=== PATIENT | female | born 1950 | race Caucasian/White ===

== ENCOUNTER → 2022-08-09 09:17 | Outpatient (BNVA) | payer MEDICARE, MEDICAID, SELFPAY | PROVIDERS: PCP Family Medicine; Visit Provider Student in an Organized Health Care Education/Training Program | DX: M17.0 Bilateral primary osteoarthritis of knee (principal); M34.9 Systemic sclerosis, unspecified; Z11.59 Encounter for screening for other viral diseases; Z79.899 Other long term (current) drug therapy; Z72.89 Other problems related to lifestyle | CPT/HCPCS: 36415; 80053; 82784; 84165; 84182; 85025; 85652; 86140; 86235; 86334; 86704; 86706; 86709; 86803; 87340; 99202 ==

== ENCOUNTER 2022-08-09 11:11 | Outpatient (REF) | payer MEDICARE, MEDICAID, SELFPAY ==
[2022-08-09 13:42] LABS: MANUAL DIFF FLAG NO
[2022-08-09 13:56] LABS: Basophils Absolute Auto 0.1 X10*3/uL (0.0-0.2); Basophils Percent Auto 1.3 % (0-2); Eosinophils Absolute Auto 0.1 X10*3/uL (0.0-0.4); Hematocrit 33.4 % (37.0-47.0); Hemoglobin 10.9 g/dl (12.0-16.0); Imm Gran Abs Auto 0.01 X10*3/uL (0.00-0.03); Imm Gran Pct Auto 0.2 % (0.0-0.4); Lymphocytes Absolute Auto 1.5 X10*3/uL (1.2-4.9); Lymphocytes Percent Auto 27.4 % (20-40); Mean Corpuscular HGB Conc 32.6 g/dl (31.0-35.0); Mean Corpuscular Hemoglobin 29.5 pg (27.0-33.0); Mean Corpuscular Volume 90.5 fL (80.0-98.0); Mean Platelet Volume 9.7 fL (9.4-12.3); Monocytes Absolute Auto 0.3 X10*3/uL (0.1-1.2); Monocytes Percent Auto 5.9 % (2-11); Neutrophils Absolute Auto 3.4 x10*3/uL (2.0-8.3); Neutrophils Percent Auto 63.2 % (45-73); Platelet Count 251 X10*3/uL (160-400); Red Blood Count 3.69 X10*6/uL (4.20-5.50); Red Cell Distribution Width 13.3 % (11.0-16.0); White Blood Count 5.4 X10*3/uL (4.8-10.8)
[2022-08-09 14:30] LABS: Alanine Aminotransferase 14 U/L (0-31); Alkaline Phosphatase 42 U/L (39-117); Anion Gap 13 (12-20); Aspartate Amino Transferase 25 U/L (5-31); Bilirubin Total 0.7 mg/dL (0.0-1.0); Blood Urea Nitrogen 22 mg/dL (9-16); C Reactive Protein < 0.10 mg/dL (< or = 0.50); Calcium 9.1 mg/dL (8.4-10.2); Carbon Dioxide 23 mmol/L (22-29); Chloride 106 mmol/L (96-108); Estimated Glomerular Filt Rate 57; Glucose Random 80 mg/dL (60-115); Potassium 4.5 mmol/L (3.3-5.1); Sodium 137 mmol/L (135-145)
[2022-08-09 14:49] LABS: Erythrocyte Sedimentation Rate 16 MM/HR (0-20)
[2022-08-10 08:23] LABS: HBS Num1 0.25 mIU/mL (0-7.99); HBc Num1 0.11 S/CO (0.00-0.79); HBsAGNum1 0.36 S/CO (0.00-0.99); Hepatitis A Antibody IgM 0.16 Index (0-0.79); Hepatitis B Core Antibody Nonreactive (Nonreactive); Hepatitis B Surface Antigen Negative (Negative); ~HepC Num1 0.12 S/CO (0.00-0.79); ~Hepatitis A Antibody IgM Nonreactive (Nonreactive); ~Hepatitis B Surface Antibody NONREACTIVE (Nonreactive); ~Hepatitis C Antibody Nonreactive (Nonreactive)
[2022-08-14 14:17] LABS: IgA 165 mg/dL (70-320); IgG 1473 mg/dL (600-1540); IgM 77 mg/dL (50-300)
[2022-08-15 00:24] LABS: PES - Abn Protein Band 1 0.9 g/dL (NONE DETECTED); Prot Elec - Albumin 4.1 g/dL (3.8-4.8); Prot Elec - Alpha1 0.3 g/dL (0.2-0.3); Prot Elec - Alpha2 0.6 g/dL (0.5-0.9); Prot Elec - Beta 1 0.5 g/dL (0.4-0.6); Prot Elec - Beta 2 0.2 g/dL (0.2-0.5); Prot Elec - Gamma 1.4 g/dL (0.8-1.7)
[2022-08-21 23:18] LABS: Centromere Protein A Ab 142 SI (<11); Centromere Protein B Ab 125 SI (<11); Fibrillarin Ab <11 SI (<11); PM SCL 100 Ab <11 SI (<11); PM SCL 75 Ab <11 SI (<11); RNA Polymerase III RP11 Ab <11 SI (<11); RNA Polymerase III RP155 Ab <11 SI (<11); SCL-70 Extractable Nuclear Ab <11 SI (<11); Th-To Ab <11 SI (<11); U1 SNRNP RNP 70KD <11 SI (<11); U1 SNRNP RNP A <11 SI (<11); U1 SNRNP RNP C <11 SI (<11)
== END 2022-08-09 11:12 | disposition home or self-care (01) ==
LOC: HO.10HDL 11:11
PROVIDERS: Visit Provider Student in an Organized Health Care Education/Training Program
DX: Z13.89 Encounter for screening for other disorder (principal)
CPT/HCPCS: 36415; 80053; 82784; 84165; 84182; 85025; 85652; 86140; 86235; 86334; 86704; 86706; 86709; 86803; 87340

== ENCOUNTER → 2022-09-18 14:59 | Outpatient (BNV) | payer MEDICARE, MEDICAID, SELFPAY | PROVIDERS: PCP Family Medicine; Visit Provider Internal Medicine Medical Oncology | DX: D47.2 Monoclonal gammopathy (principal) | CPT/HCPCS: 99204; 99213 ==

== ENCOUNTER 2023-02-07 07:48 | Outpatient (AMB) | payer MEDICARE, MEDICAID, SELFPAY ==
[2023-02-07 07:53] VITALS: BP 122/68; TEMP 36.6; BMI 26.3
--- NOTE | 2023-02-07 07:53 | A.OFFVIS_ITS ---
Intake Vital Signs 02/07/23 07:53 Height 5 ft 2 in Weight 143 lb 15.39 oz BMI 26.3 BP 122/68 Blood Pressure Location Rt brachial Position Sitting Temp 97.9 F Temp Source Skin Intake Visit Reasons: Scleroderma Intake Note: Pt seen today for scleroderma follow up. 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 Required: No Accompanied by: Self / Same As Patient Allergies cephalexin Adverse Reaction (Unknown, Verified 02/07/23 07:55) Nausea codeine Adverse Reaction (Unknown, Verified 02/07/23 07:55) Nausea cyclobenzaprine [From Flexeril] Adverse Reaction (Unknown, Verified 02/07/23 07:55) Nausea metaxalone Adverse Reaction (Unknown, Verified 02/07/23 07:55) Nausea tramadol Adverse Reaction (Unknown, Verified 02/07/23 07:55) Nausea Medication List - Last Reconciled 02/07/23 by Jacinto Crowe MD atorvastatin 10 mg PO DAILY cholecalciferol (vitamin D3) 25 mcg PO DAILY citalopram 20 mg PO DAILY diclofenac sodium 1% 4 grams topical QID fluorouracil 5% 2 appl topical BID gabapentin 200 mg (2 x 100 mg) PO BEDTIME hydroxychloroquine 200 mg PO DAILY omeprazole 20 mg PO DAILY HPI HPI Comments History of Present Illness Details This is a 72 year old female with limited scleroderma who presents for follow-up. Doing well overall. Staying active. Goes to the gym 3-4 days a week and does light weights and treadmill. Gets some knee pain with going up and down the stairs. Gets some shortness of breath. She follows up with a lingo cleaner once a year and she had PFTs and echo and was told they were unremarkable. She is on hydroxychloroquine 200 mg daily. Initial history: This is a 72-year-old female with a past medical history scleroderma presents as a new patient. Her previous metal products fabricator assembler left the practice. Patient stated that she was diagnosed with scleroderma around 15-20 years ago. When she had Raynaud's, and some skin changes. She has been on hydroxychloroquine 1 tab daily since her diagnosis. She states she has history of GERD, on omeprazole daily and she had sphincter dilation procedure a few times by GI. She also states that her previous metal products fabricator assembler Dr. Patel would order an echo and PFTs every 1-2 years. She follows up with a lingo cleaner Dr. Zimmer. She stated that she was not started on any specific therapy by Pulmonary. Patient states that she is doing well overall. States that over the last year she has been getting progressively more short of breath. She gets short of breath with going up the stairs. After a dozen steps she has to slow down and catch her breath. She has a cough that is generally worse in the morning. Denies dysphagia. With regards to her Raynaud's she states that she has had digital tip ulcers years ago but no recent digital tip ulcers. He states that her Raynaud's is generally well controlled except when she goes grocery shopping. She has to use heated gloves. She states that she has generalized stiffness of her neck, shoulders and knees. The left knee is worse than the right. She the knee pain is worse with going up and down the stairs and worse with walking. She states that she walks 2-3 miles on the treadmill and she has knee pain towards the end. States that she was prescribed diclofenac gel for her neck arthritis and it did not seem to help. [facility] Medical History Porokeratosis Urinary frequency Insomnia Nontraumatic tear of rotator cuff Lumbar spondylitis Hyperlipidemia Facial nerve disease Esophageal reflux KAT (dyspnea on exertion) Depression Surgical History H/O shoulder replacement H/O kidney removal Family History Brother Cutaneous lupus erythematosus Father Prostate cancer Other Autoimmune disease Family history of rheumatoid arthritis Family history of systemic lupus erythematosus Family history of thyroid disease Social History Household Members: Spouse Alcohol intake: current Alcohol intake frequency: holidays/special occasions only Alcohol type: beer Patient Tobacco Use Status: Never used Tobacco service: No Current occupational status: retired 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 Review of Systems [facility] Reports arthralgias and Reports stiffness Physical Exam Vital Signs: Last Vital Signs Temp 97.9 F 02/07/23 07:53 BP 122/68 02/07/23 07:53 BMI result Body Mass Index 26.3 Const General: cooperative, healthy appearing and comfortable Nutritional Appearance: overweight Orientation/consciousness: patient oriented x3 Limitations: no limitations HEENT Head: Yes normocephalic and Yes atraumatic Mouth: moist mucous membranes Resp Effort & Inspection: normal respiratory effort and able to speak in complete sentences Auscultation: clear to auscultation bilaterally Cardio Rate: regular rate Rhythm: regular rhythm Heart sounds: S1 normal heart sound present and S2 normal heart sound present GI Inspection: No distended Palpation (GI): Soft to palpation and nontender Neuro General: patient oriented x3 Extrem Other: Osteoarthritic changes of both hands with Heberden's nodes Minimal sclerodactyly No active synovitis Nailfold capillaroscopy shows few dilated loops and parallel hemorrhages Calcinosis of left thumb Mild Raynaud's with cool fingertips Multiple telangiectasias on hands, lips, floor of the mouth Bilateral knee crepitus leftknee pain with full flexion, worse on the left Assessment & Plan Assessment & Plan (1) Scleroderma: Comment: ++ centromere antibody (Raynaud's, arthralgias, calcinosis, GERD) onset around 2005 HCQ since the beginning Code(s): M34.9 - Systemic sclerosis, unspecified Plan: This is a 72-year-old female with limited scleroderma presents for follow-up. Patient seems to be doing fairly well with no active skin or joint disease. Raynaud seems to be fairly well controlled with conservative measures. Advised patient to try taking half a tablet of hydroxychloroquine 200 mg daily for about a month and monitor her symptoms, if she feels worse she can go back to 200 mg daily Follow-up in 6 months (2) Bilateral primary osteoarthritis of knee: Code(s): M17.0 - Bilateral primary osteoarthritis of knee Plan: Symptoms are stable. Patient remains active, (3) Long-term use of hydroxychloroquine: Code(s): Z79.899 - Other senior care (current) drug therapy Plan: Patient is aware of the risk of retinopathy with hydroxychloroquine. Continue yearly eye exam (4) Osteopenia: Code(s): M85.80 - Other specified disorders of bone density and structure, unspecified site Qualifiers: Osteopenia location: multiple sites Qualified Code(s): M85.89 - Other specified disorders of bone density and structure, multiple sites Plan: DEXA 02/2022? T-score L-spine-1.2? Left femoral neck -1.9? left total hip -1.9 FRAX for major osteoporotic fracture 15% for hip fracture 3.2% This was counting RA as an additional risk factor for fracture Patient however does not have history of RA.? I recalculated her FRAX score without RA as a risk factor and her risk for major osteoporotic fracture is 12% and?2.5% for hip fracture. She doesn't fullfill criteria for osteoporosis treatment at this stage Repeat DEXA in the fall of 2023 (5) MGUS (monoclonal gammopathy of unknown significance): Code(s): D47.2 - Monoclonal gammopathy Plan: Follow-up with hematology Plan I spent 45 minutes reviewing patient's chart, evaluating patient, counseling patient and documenting in the chart Coding Level of Care Code Est Pt Level 5 (00959) Diagnoses Scleroderma M34.9 Bilateral primary osteoarthritis of knee M17.0 Long-term use of hydroxychloroquine Z79.899 Osteopenia of multiple sites M85.89 Osteopenia location: multiple sites MGUS (monoclonal gammopathy of unknown significance) D47.2
== END 2023-02-07 08:24 | disposition home or self-care (01) ==
PROVIDERS: PCP Family Medicine; Visit Provider Student in an Organized Health Care Education/Training Program
DX: M34.9 Systemic sclerosis, unspecified (principal); M17.0 Bilateral primary osteoarthritis of knee; Z79.899 Other long term (current) drug therapy; M85.89 Other specified disorders of bone density and structure, multiple sites; D47.2 Monoclonal gammopathy
CPT/HCPCS: 99215

== ENCOUNTER → 2023-02-07 07:48 | Outpatient (BNVA) | payer MEDICARE, MEDICAID, SELFPAY | PROVIDERS: PCP Family Medicine; Visit Provider Student in an Organized Health Care Education/Training Program | DX: M34.9 Systemic sclerosis, unspecified (principal); M17.0 Bilateral primary osteoarthritis of knee; M85.89 Other specified disorders of bone density and structure, multiple sites; D47.2 Monoclonal gammopathy; Z79.899 Other long term (current) drug therapy | CPT/HCPCS: 99212 ==

== ENCOUNTER 2023-08-08 09:11 | Outpatient (AMB) | payer MEDICARE, MEDICAID, SELFPAY ==
--- NOTE | 2023-08-08 09:14 | MHC.OFFVIS ---
Intake Vital Signs 08/08/23 09:15 Height 5 ft 2 in Weight 150 lb 2.157 oz BMI 27.5 BP 132/60 Blood Pressure Location Rt brachial Position Sitting Intake Visit Reasons: SSc /CONFIRMED Intake Note: Patient last seen 02/07/23 presents today for follow up. Reports flashes of light and black floater in eyes still present and dull headaches. She stopped taking plaquenil approx May, reports ruptured fluid sac. Following with Scott in [place] Supervisor Fleshing Required: No Accompanied by: Self / Same As Patient Allergies cephalexin Adverse Reaction (Unknown, Verified 08/08/23 09:20) Nausea codeine Adverse Reaction (Unknown, Verified 08/08/23 09:20) Nausea cyclobenzaprine [From Flexeril] Adverse Reaction (Unknown, Verified 08/08/23 09:20) Nausea metaxalone Adverse Reaction (Unknown, Verified 08/08/23 09:20) Nausea tramadol Adverse Reaction (Unknown, Verified 08/08/23 09:20) Nausea Medication List - Last Reconciled 08/08/23 by Jacinto Crowe MD atorvastatin 10 mg PO DAILY cholecalciferol (vitamin D3) 25 mcg PO DAILY diclofenac sodium 1% 4 grams topical QID escitalopram oxalate 10 mg PO DAILY fluorouracil 5% 2 appl topical BID gabapentin 300 mg PO DAILY omeprazole 20 mg PO DAILY HPI HPI Comments History of Present Illness Details This is a 73 year old female with limited scleroderma who presents for follow-up. Doing well overall. After last visit, patient cut her hydroxychloroquine to 1/2 a tablet a day. She did not feel any difference. Back in May she had floaters and blurry vision in her left eye. She was evaluated by her coil rewind machine operator and was told that she had a ruptured sac. She continues to have some blurry vision in the left eye. She discontinued hydroxychloroquine at that time. Initially she felt some generalized stiffness and joint pain for a few weeks after stopping it but now she feels back to her baseline. She gets knee pain with activity such as bending her knees, walking on the treadmill. She was evaluated by her high school combination teacher this year and believes she had PFT and 2D echo and they were unremarkable Initial history: This is a 72-year-old female with a past medical history scleroderma presents as a new patient. Her previous special education para professional left the practice. Patient stated that she was diagnosed with scleroderma around 15-20 years ago. When she had Raynaud's, and some skin changes. She has been on hydroxychloroquine 1 tab daily since her diagnosis. She states she has history of GERD, on omeprazole daily and she had sphincter dilation procedure a few times by GI. She also states that her previous special education para professional Dr. Ptael would order an echo and PFTs every 1-2 years. She follows up with a high school combination teacher Dr. Zimmer. She stated that she was not started on any specific therapy by Pulmonary. Patient states that she is doing well overall. States that over the last year she has been getting progressively more short of breath. She gets short of breath with going up the stairs. After a dozen steps she has to slow down and catch her breath. She has a cough that is generally worse in the morning. Denies dysphagia. With regards to her Raynaud's she states that she has had digital tip ulcers years ago but no recent digital tip ulcers. He states that her Raynaud's is generally well controlled except when she goes grocery shopping. She has to use heated gloves. She states that she has generalized stiffness of her neck, shoulders and knees. The left knee is worse than the right. She the knee pain is worse with going up and down the stairs and worse with walking. She states that she walks 2-3 miles on the treadmill and she has knee pain towards the end. States that she was prescribed diclofenac gel for her neck arthritis and it did not seem to help. [facility] Medical History Porokeratosis Urinary frequency Insomnia Nontraumatic tear of rotator cuff Lumbar spondylitis Hyperlipidemia Facial nerve disease Esophageal reflux KAT (dyspnea on exertion) Depression Surgical History H/O shoulder replacement H/O kidney removal Family History Brother Cutaneous lupus erythematosus Father Prostate cancer Other Autoimmune disease Family history of rheumatoid arthritis Family history of systemic lupus erythematosus Family history of thyroid disease Social History Household Members: Spouse Alcohol intake: current Alcohol intake frequency: holidays/special occasions only Alcohol type: beer Patient Tobacco Use Status: Never used Tobacco service: No Current occupational status: retired 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 Review of [employer] Reports arthralgias and Reports stiffness Physical Exam Vital Signs: Last Vital Signs BP 132/60 08/08/23 09:15 BMI result Body Mass Index 27.5 Const General: cooperative, healthy appearing and comfortable Nutritional Appearance: overweight Orientation/consciousness: patient oriented x3 Limitations: no limitations HEENT Head: Yes normocephalic and Yes atraumatic Mouth: moist mucous membranes Resp Effort & Inspection: normal respiratory effort and able to speak in complete sentences Auscultation: clear to auscultation bilaterally Cardio Rate: regular rate Rhythm: regular rhythm Heart sounds: S1 normal heart sound present and S2 normal heart sound present GI Inspection: No distended Palpation (GI): Soft to palpation and nontender Neuro General: patient oriented x3 Extrem Other: Osteoarthritic changes of both hands with Heberden's nodes Minimal sclerodactyly No active synovitis Nailfold capillaroscopy shows few dilated loops and parallel hemorrhages Calcinosis of left thumb Mild Raynaud's with cool fingertips Multiple telangiectasias on hands, lips, floor of the mouth Bilateral knee crepitus leftknee pain with full flexion, worse on the left Assessment & Plan Assessment & Plan (1) Scleroderma: Comment: ++ centromere antibody (Raynaud's, arthralgias, calcinosis, GERD) onset around 2005 HCQ since the beginning. DC 05/2023 after having ruptured sac in the back of her left eye Code(s): M34.9 - Systemic sclerosis, unspecified Plan: This is a 73-year-old female with limited scleroderma presents for follow-up. Patient seems to be doing fairly well with no active skin or joint disease. Raynaud seems to be fairly well controlled with conservative measures. Her complaints are likely related to degenerative arthritis. Patient discontinued hydroxychloroquine after having a ruptured sac in the back of her left eye 05/2023. Will continue to monitor patient off DMARDs. She states that she was evaluated by her high school combination teacher and had PFT and 2D echo this year. Will attempt to retrieve those records Follow-up in 6 month (2) Bilateral primary osteoarthritis of knee: Code(s): M17.0 - Bilateral primary osteoarthritis of knee Plan: Symptoms are stable. Patient remains active, advised patient to use Tylenol, oral Voltaren gel, can use ibuprofen sparingly. Consider doing lower impact exercises such as aquatherapy or swimming (3) Long-term use of hydroxychloroquine: Code(s): Z79.899 - Other skilled nursing (current) drug therapy Plan: Has been discontinued 05/2023 (4) Osteopenia: Code(s): M85.80 - Other specified disorders of bone density and structure, unspecified site Qualifiers: Osteopenia location: multiple sites Qualified Code(s): M85.89 - Other specified disorders of bone density and structure, multiple sites Plan: DEXA 02/2022? T-score L-spine-1.2? Left femoral neck -1.9? left total hip -1.9 FRAX for major osteoporotic fracture 15% for hip fracture 3.2% This was counting RA as an additional risk factor for fracture Patient however does not have history of RA.? I recalculated her FRAX score without RA as a risk factor and her risk for major osteoporotic fracture is 12% and?2.5% for hip fracture. She doesn't fullfill criteria for osteoporosis treatment at this stage Repeat DEXA in the fall of 2023 (5) MGUS (monoclonal gammopathy of unknown significance): Code(s): D47.2 - Monoclonal gammopathy Plan: Patient follows up regularly with Hematology Plan I spent 45 minutes reviewing patient's chart, evaluating patient, counseling patient and documenting in the chart Coding Level of Care Code Est Pt Level 5 (27856) Diagnoses Scleroderma M34.9 Bilateral primary osteoarthritis of knee M17.0 Long-term use of hydroxychloroquine Z79.899 Osteopenia of multiple sites M85.89 Osteopenia location: multiple sites MGUS (monoclonal gammopathy of unknown significance) D47.2
[2023-08-08 09:15] VITALS: BP 132/60; BMI 27.5
== END 2023-08-08 09:49 | disposition home or self-care (01) ==
PROVIDERS: PCP Family Medicine; Visit Provider Student in an Organized Health Care Education/Training Program
DX: M34.9 Systemic sclerosis, unspecified (principal); M17.0 Bilateral primary osteoarthritis of knee; Z79.899 Other long term (current) drug therapy; M85.89 Other specified disorders of bone density and structure, multiple sites; D47.2 Monoclonal gammopathy
CPT/HCPCS: 99215

== ENCOUNTER → 2023-08-08 09:11 | Outpatient (BNVA) | payer MEDICARE, MEDICAID, SELFPAY | PROVIDERS: PCP Family Medicine; Visit Provider Student in an Organized Health Care Education/Training Program | DX: M34.9 Systemic sclerosis, unspecified (principal); M17.0 Bilateral primary osteoarthritis of knee; M85.89 Other specified disorders of bone density and structure, multiple sites; D47.2 Monoclonal gammopathy; Z79.899 Other long term (current) drug therapy | CPT/HCPCS: 99212 ==

== ENCOUNTER 2024-02-10 09:18 | Outpatient (AMB) | payer MEDICARE, MEDICAID, SELFPAY ==
--- NOTE | 2024-02-10 09:21 | A.OFFVIS_ITS ---
Vital Signs 02/10/24 09:28 Height 5 ft 2 in Weight 150 lb 5.684 oz BMI 27.5 BP 132/64 Blood Pressure Location Rt brachial Position Sitting Pulse 62 Pulse Source Pulse Oximeter Pulse Oximetry (%) 98 Oxygen Delivery Method Room Air Intake Visit Reasons: SSc Intake Note: Patient presents for SSc. Allergies cephalexin Adverse Reaction (Unknown, Verified 02/10/24 09:27) Nausea codeine Adverse Reaction (Unknown, Verified 02/10/24 09:27) Nausea cyclobenzaprine [From Flexeril] Adverse Reaction (Unknown, Verified 02/10/24 09:27) Nausea metaxalone Adverse Reaction (Unknown, Verified 02/10/24 09:27) Nausea tramadol Adverse Reaction (Unknown, Verified 02/10/24 09:27) Nausea Medication List - Last Reconciled 02/10/24 by Jacinto Crowe MD atorvastatin 10 mg PO DAILY cholecalciferol (vitamin D3) 25 mcg PO DAILY diclofenac sodium 1% 4 grams topical QID escitalopram oxalate 10 mg PO DAILY fluorouracil 5% 2 appl topical BID gabapentin 300 mg PO DAILY omeprazole 20 mg PO DAILY HPI Comments Details: This is a 73 year old female with limited scleroderma who presents for follow- up. Over the last 6 months she has noticed left knee pain, especially going up the stairs, the pain is on the outer aspect of her left knee, she gets sudden shooting pain and feels that her knee is unstable and gives out on her. Has not had any falls. Denies any knee trauma. She has noticed some calcinosis on her right thumb, it is annoying but not particularly painful. Initial history: This is a 72-year-old female with a past medical history scleroderma presents as a new patient. Her previous independent distributor left the practice. Patient stated that she was diagnosed with scleroderma around 15-20 years ago. When she had Raynaud's, and some skin changes. She has been on hydroxychloroquine 1 tab daily since her diagnosis. She states she has history of GERD, on omeprazole daily and she had sphincter dilation procedure a few times by GI. She also states that her previous independent distributor Dr. Patel would order an echo and PFTs every 1-2 years. She follows up with a automotive refinisher Dr. Zimmer. She stated that she was not started on any specific therapy by Pulmonary. Patient states that she is doing well overall. States that over the last year she has been getting progressively more short of breath. She gets short of breath with going up the stairs. After a dozen steps she has to slow down and catch her breath. She has a cough that is generally worse in the morning. Denies dysphagia. With regards to her Raynaud's she states that she has had digital tip ulcers years ago but no recent digital tip ulcers. He states that her Raynaud's is generally well controlled except when she goes grocery shopping. She has to use heated gloves. She states that she has generalized stiffness of her neck, shoulders and knees. The left knee is worse than the right. She the knee pain is worse with going up and down the stairs and worse with walking. She states that she walks 2-3 miles on the treadmill and she has knee pain towards the end. States that she was prescribed diclofenac gel for her neck arthritis and it did not seem to help. [facility] Medical History Porokeratosis Urinary frequency Insomnia Nontraumatic tear of rotator cuff Lumbar spondylitis Hyperlipidemia Facial nerve disease Esophageal reflux KAT (dyspnea on exertion) Depression Surgical History H/O shoulder replacement H/O kidney removal Family History Brother Cutaneous lupus erythematosus Father Prostate cancer Other Autoimmune disease Family history of rheumatoid arthritis Family history of systemic lupus erythematosus Family history of thyroid disease Social History Household Members: Spouse Alcohol intake: current Alcohol intake frequency: holidays/special occasions only Alcohol type: beer Patient Tobacco Use Status: Never used Tobacco service: No Current occupational status: retired 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 Female Reproductive History Menstrual Total pregnancies: 2 Number of Living Children: 2 Review of Systems [facility] Reports arthralgias and Reports stiffness Physical Exam Vital Signs: Last Vital Signs Pulse 62 02/10/24 09:28 BP 132/64 02/10/24 09:28 Pulse Ox 98 02/10/24 09:28 Oxygen Delivery Method Room Air 02/10/24 09:28 BMI result Body Mass Index 27.5 Const General: cooperative, healthy appearing and comfortable Nutritional Appearance: overweight Orientation/consciousness: patient oriented x3 Limitations: no limitations HEENT Head: Yes normocephalic and Yes atraumatic Mouth: moist mucous membranes Resp Effort & Inspection: normal respiratory effort and able to speak in complete sentences Auscultation: clear to auscultation bilaterally Cardio Rate: regular rate Rhythm: regular rhythm GI Inspection: No distended Palpation (GI): Soft to palpation and nontender Neuro General: patient oriented x3 Extrem Other: Osteoarthritic changes of both hands with Heberden's nodes Minimal sclerodactyly No active synovitis Nailfold capillaroscopy shows few dilated loops and parallel hemorrhages Calcinosis of left thumb Mild Raynaud's with cool fingertips Multiple telangiectasias on hands, lips, floor of the mouth Left knee crepitus, more noticeable laterally Equivocal Loly's test on the left Assessment & Plan Assessment & Plan (1) Scleroderma: Comment: ++ centromere antibody (Raynaud's, arthralgias, calcinosis, GERD) onset around 2005 HCQ since the beginning. DC 05/2023 after having ruptured sac in the back of her left eye Code(s): M34.9 - Systemic sclerosis, unspecified Category: Medical Plan: This is a 73-year-old female with limited scleroderma presents for follow-up. Patient seems to be doing fairly well with no active skin or joint disease. Raynaud seems to be fairly well controlled with conservative measures. Her complaints are likely related to degenerative arthritis. Patient discontinued hydroxychloroquine after having a ruptured sac in the back of her left eye 05/2023. Will continue to monitor patient off DMARDs. She had PFTs 05/2023 which were unremarkable. We will reach out to patient's automotive refinisher's office and retrieve any records of a 2D echo Follow-up in 6 months (2) Osteopenia: Code(s): M85.80 - Other specified disorders of bone density and structure, unspecified site Category: Medical Qualifiers: Osteopenia location: multiple sites Qualified Code(s): M85.89 - Other specified disorders of bone density and structure, multiple sites Plan: DEXA 02/2022? T-score L-spine-1.2? Left femoral neck -1.9? left total hip -1.9 FRAX for major osteoporotic fracture 15% for hip fracture 3.2% This was counting RA as an additional risk factor for fracture Patient however does not have history of RA.? I recalculated her FRAX score without RA as a risk factor and her risk for major osteoporotic fracture is 12% and?2.5% for hip fracture. She doesn't fullfill criteria for osteoporosis treatment at this stage Repeat DEXA before next visit (3) MGUS (monoclonal gammopathy of unknown significance): Code(s): D47.2 - Monoclonal gammopathy Category: Medical Plan: Patient follows up regularly with Hematology (4) Internal derangement of left knee: Code(s): M23.92 - Unspecified internal derangement of left knee Category: Medical Plan: Will order left knee MRI to evaluate for internal derangement (5) Bilateral primary osteoarthritis of knee: Code(s): M17.0 - Bilateral primary osteoarthritis of knee Category: Medical Plan I spent 35 minutes reviewing patient's chart, evaluating patient, ordering d iagnostic workup, counseling patient and documenting in the chart Orders: Orders MR knee LT wo con Today M23.92 - Unspecified internal derangement of left knee XR DEXA axial skeleton 06/15/24 M85.89 - Other specified disorders of bone density and structure, multiple sites Coding Level of Care Code Est Pt Level 5 (37197) Complex EM visit Add On G2211 Diagnoses Scleroderma M34.9 Osteopenia of multiple sites M85.89 Osteopenia location: multiple sites MGUS (monoclonal gammopathy of unknown significance) D47.2 Internal derangement of left knee M23.92 Bilateral primary osteoarthritis of knee M17.0
[2024-02-10 09:28] VITALS: BP 132/64; PULSE 62; O2SAT 98; BMI 27.5
== END 2024-02-10 09:56 | disposition home or self-care (01) ==
PROVIDERS: PCP Family Medicine; Visit Provider Student in an Organized Health Care Education/Training Program
DX: M34.9 Systemic sclerosis, unspecified (principal); M85.89 Other specified disorders of bone density and structure, multiple sites; D47.2 Monoclonal gammopathy; M23.92 Unspecified internal derangement of left knee; M17.0 Bilateral primary osteoarthritis of knee
CPT/HCPCS: 99214; G2211

== ENCOUNTER → 2024-02-10 09:18 | Outpatient (BNVA) | payer MEDICARE, MEDICAID, SELFPAY | PROVIDERS: PCP Family Medicine; Visit Provider Student in an Organized Health Care Education/Training Program | DX: M34.9 Systemic sclerosis, unspecified (principal); M85.89 Other specified disorders of bone density and structure, multiple sites; M17.0 Bilateral primary osteoarthritis of knee; D47.2 Monoclonal gammopathy; M23.92 Unspecified internal derangement of left knee | CPT/HCPCS: 99212 ==

== ENCOUNTER 2024-04-27 07:47 | Outpatient (REF) | payer MEDICARE, MEDICAID, SELFPAY ==
--- NOTE | ~2024-04-27 | XR_ITS ---
EXAMINATION: XR PELVIS CLINICAL INFORMATION: Pain in unspecified hip M25.559. COMPARISON: None available. TECHNIQUE: AP view of the pelvis. FINDINGS: No acute fracture or dislocation. [id number] left and mild right hip joint space narrowing with marginal osteophytes. No concerning lytic or blastic osseous lesion. No evidence of femoral head avascular necrosis. Phleboliths within the pelvis. Facet arthropathy at L5-S1. XR/XR pelvis 1-2V IMPRESSION: 1. Cwyi-in-irlbirlg left and mild right hip osteoarthritis. 2. Facet arthropathy at L5-S1. Electronically signed by: Caleb Morel MD 06/11/2024 09:26 AM [facility]
--- NOTE | ~2024-04-27 | XR_ITS ---
EXAMINATION: Bilateral knee radiographs CLINICAL INFORMATION: Pain in unspecified knee M25.569. COMPARISON: None available TECHNIQUE: One view of the right knee. 3 views of the left knee FINDINGS: Mild joint space narrowing of the medial compartment of the right knee. Mild joint space narrowing of the lateral compartment of the left knee. Mild left patellofemoral degenerative changes. The soft tissues are unremarkable. XR/XR knee LT 3V IMPRESSION: Mild degenerative changes of the bilateral knees. Electronically signed by: Angel Jacobo MD 05/05/2024 01:31 PM [facility]
--- NOTE | ~2024-04-27 | XR_ITS ---
EXAMINATION: Bilateral knee radiographs CLINICAL INFORMATION: Pain in unspecified knee M25.569. COMPARISON: None available TECHNIQUE: One view of the right knee. 3 views of the left knee FINDINGS: Mild joint space narrowing of the medial compartment of the right knee. Mild joint space narrowing of the lateral compartment of the left knee. Mild left patellofemoral degenerative changes. The soft tissues are unremarkable. XR/XR knee RT 1V IMPRESSION: Mild degenerative changes of the bilateral knees. Electronically signed by: Angel Jacobo MD 05/05/2024 01:31 PM [facility]
== END 2024-04-27 07:48 | disposition home or self-care (01) ==
LOC: HO.HOSX 07:47
PROVIDERS: Visit Provider Orthopaedic Surgery
DX: M25.562 Pain in left knee (principal); M25.561 Pain in right knee; M25.559 Pain in unspecified hip
CPT/HCPCS: 20610; 72170; 73560; 73562; 99202; J0665; J1100; J2003

== ENCOUNTER 2024-04-27 08:36 | Outpatient (AMB) | payer MEDICARE, MEDICAID, SELFPAY ==
--- NOTE | 2024-04-27 08:40 | MHC.OFFVIS ---
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 Patient reports that she has felt increasing left knee pain over the last year, increased pain while going up the stairs. Pain is felt on the medial aspect of the knee and occasionally feels as though it will give out on her. She has difficulty getting in and out of the car. She explains that she has scleroderma which she takes Gabapentin for. She also complains of pain in the left groin, she has difficulty with lateral movements of the left leg. 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 Patient reports that she has felt increasing left knee pain over the last year, increased pain while going up the stairs. Pain is felt on the medial aspect of the knee and occasionally feels as though it will give out on her. She has difficulty getting in and out of the car. She explains that she has scleroderma which she takes Gabapentin for. She also complains of pain in the left groin, she has difficulty with lateral movements of the left leg. This is been present for 6 weeks. MRI done in March [facility] Medical History Porokeratosis Urinary frequency Insomnia Nontraumatic tear of rotator cuff Lumbar spondylitis Hyperlipidemia Facial nerve disease Esophageal reflux KAT (dyspnea on exertion) Depression Surgical History H/O shoulder replacement H/O kidney removal Family History Brother Cutaneous lupus erythematosus Father Prostate cancer Other Autoimmune disease Family history of rheumatoid arthritis Family history of systemic lupus erythematosus Family history of thyroid disease Social History Household Members: Spouse Alcohol intake: current Alcohol intake frequency: holidays/special occasions only Alcohol type: beer Patient Tobacco Use Status: Never used Tobacco service: No Current occupational status: retired 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 Tenderness to palpation lateral compartment. Full extension and flexion of the left knee. 1+ valgus instability. Left hip notable for positive impingement and positive Stinchfield although range of motion maintained Office Procedures Joint Inj/Aspir; Non-Pain Clin Joint Injection/Drain Details: Injected 1 mL of Decadron and 3 mL 1% lidocaine and 3 mL of 0.25% Marcaine. Site was prepped using aseptic technique. Patient tolerated the procedure well. Approach Used: anterolateral Shoulders, Hips, Knees, Knee Large Joint Injection 70323: Left Knee Coding Procedure code (CPT) selection complete Results Reviewed Results Reviewed: I personally reviewed relevant radiographs. AP pelvis shows [id number] bilateral hip arthritis left greater than right Radiographs show valgus pattern osteoarthritis of the left knee I personally reviewed the MR images. 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 This is a valgus pattern and her MRI confirms severe arthritis of the left lateral compartment. There is also finding of a meniscus tear which is degenerative in nature and secondary to the arthritis. Treating the meniscus tear in isolation would be unhelpful. I discussed treatment options including injections, bracing as well as surgery. She has occasional pain and can walk extended distances and we both feel that surgery would be overly aggressive at this time point. I do think she will benefit from surgery in the future as these valgus knees tend to worsen over time. In the meantime I injected her left knee and recommend that she stay healthy and active. (2) Osteoarthritis of left hip: Code(s): M16.12 - Unilateral primary osteoarthritis, left hip Category: Medical Plan: Her biggest complaint right now is left groin pain secondary to left hip osteoarthritis. This has been present for 6 weeks and her radiographs are not impressive. I recommend that she continue gentle activity and avoid irritating her left hip with stairs or deep squats or some of the exercises she has been doing in the gym. We discussed physical therapy but we will wait and see how she fares over the next 6-8 weeks. If her pain persists we will consider physical therapy and an injection. Again surgery would be overly aggressive at this time point. 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
[2024-04-27 08:51] VITALS: BMI 27.4
== END 2024-04-27 09:55 | disposition home or self-care (01) ==
PROVIDERS: PCP Family Medicine; Visit Provider Orthopaedic Surgery
DX: M23.301 Other meniscus derangements, unspecified lateral meniscus, left knee (principal); M16.12 Unilateral primary osteoarthritis, left hip
CPT/HCPCS: 20610; 99204

== ENCOUNTER 2024-07-27 10:06 | Outpatient (AMB) | payer MEDICARE, MEDICAID, SELFPAY ==
--- NOTE | 2024-07-27 10:18 | MHC.OFFVIS ---
Vital Signs 07/27/24 10:20 Height 5 ft 2 in Weight 150 lb BMI 27.4 Intake Visit Reasons: OV - Left Hip Pain Intake Note: Magali is a 73 year old female who presents today for a follow up of her left hip OA. She was last seen in 04/27/2024 where the left knee was injected. She reports that this was helpful, but she continues to have pain in the left hip. The pain is worsened with all activities, particularly lateral movements.She is taking Gabapentin with minimal releif. She is interested in injection. Allergies cephalexin Adverse Reaction (Unknown, Verified 04/27/24 08:55) Nausea codeine Adverse Reaction (Unknown, Verified 04/27/24 08:55) Nausea cyclobenzaprine [From Flexeril] Adverse Reaction (Unknown, Verified 04/27/24 08:55) Nausea metaxalone Adverse Reaction (Unknown, Verified 04/27/24 08:55) Nausea tramadol Adverse Reaction (Unknown, Verified 04/27/24 08:55) Nausea HPI HPI OV - Left Hip Pain: Details: Magali is a 73 year old female who presents today for a follow up of her left hip OA. She was last seen in 04/27/2024 where the left knee was injected. She reports that this was helpful, but she continues to have pain in the left hip. The pain is worsened with all activities, particularly lateral movements.She is taking Gabapentin with minimal relief. She is interested in injection. [facility] Medical History Porokeratosis Urinary frequency Insomnia Nontraumatic tear of rotator cuff Lumbar spondylitis Hyperlipidemia Facial nerve disease Esophageal reflux KAT (dyspnea on exertion) Depression Surgical History H/O shoulder replacement H/O kidney removal Family History Brother Cutaneous lupus erythematosus Father Prostate cancer Other Autoimmune disease Family history of rheumatoid arthritis Family history of systemic lupus erythematosus Family history of thyroid disease Social History Household Members: Spouse Alcohol intake: current Alcohol intake frequency: holidays/special occasions only Alcohol type: beer Patient Tobacco Use Status: Never used Tobacco service: No Current occupational status: retired 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 Tenderness to palpation lateral compartment. Full extension and flexion of the left knee. 1+ valgus instability. Left hip notable for positive impingement and positive Stinchfield although range of motion maintained Assessment & Plan Assessment & Plan (1) Osteoarthritis of left hip: Code(s): M16.12 - Unilateral primary osteoarthritis, left hip Category: Medical Plan: Magali has continued left groin pain. Her radiographs show mild arthritis. We discussed MRI versus injection. She would like to try to avoid surgery and I think that is reasonable. An injection was ordered with pain management. She will follow up to see me in 3 months. Orders: Referrals Pain Management Referral M16.12 - Unilateral primary osteoarthritis, left hip Coding Level of Care Code Est Pt Level 3 (46049) Diagnoses Osteoarthritis of left hip M16.12
[2024-07-27 10:20] VITALS: BMI 27.4
--- OUTSIDE RECORDS SUMMARY | 2024-07-27 11:16 | XMS_ITS | Encounter Summary ---
Author Organization [employer] Address [address] [place] [address] Care Team Providers Care Industrial Manufacturing Technician Name Role Phone Lynda Wade NP Primary Care Provider [phone] Reason for Referral * Imaging (Routine) - Closed Specialty Diagnoses / Procedures Referred By Oliver valerio Referred To Contact Radiology Diagnoses Breast cancer screening by mammogram Procedures BI Mammogram Screening Bilateral Lynda Wade NP [address] [place] [id number] Phone: tel: fax: Referral ID Status Reason Start Date Expiration Date Visits Re quested Visits Authorized [id number] Closed 08/05/2023 08/04/2024 1 1 Encounter Details Date Type Department Care Team ([facility] Contact Info) Description 08/05/2023 Orders Only [facility] [address] [place] [phone] Lynda Wade NP [address] [place] [address] Breast cancer screening by mammogram Social History Tobacco Use Types Packs/Day Years Used Date Smoking Tobacco: Former Cigarettes Q uit: 1992 Passive Smoke Exposure: Past Smokeless Tobacco: Never Alcohol Use Standard Drinks/Week Comments Not Currently 0 (1 standard drink = 0.6 oz pur e alcohol) Alcohol Answer Date Recorded How often do you have a drink containing alcohol ? 0 06/18/2023 How many drinks containing a lcohol do you have on a typical day when you are drinking? 0 06/18/2023 How often do you have six or more drinks on one occasion? 0 06/18/2023 Depression Answer Date Recorded Patient Health Questionnaire-9 Score 5 05/07/2023 Patient Health Questionnaire-9 Score 5 05/07/2023 Last PHQ-9: Questionnaire Data Not on file 1 07/08/2022 Housing Stability Answer Date Recorded What is your housing situation today? I have jamila keller 05/07/[address] you li ve. Do you have problems with any of the following? None of the above 05/07/2023 Food Insecurity Answer Date Recorded Within the past 12 months, y ou worried that your food would run out before you got money to buy more: Never True 05/07/2023 Within the past 12 months,th e food you bought just didn't last and you didn't have enough money to get more: Never True Transportation Answer Date Recorded In the past 12 months, has l ack of transportation kept you from medical appts, meetings, work or from getting things needed for daily living? No 05/07/2023 Intimate Partner Violence Answer Date R ecorded Within the last year, have y ou been afraid of your partner or ex-partner? 2 06/18/2023 Within the last year, have y ou been humiliated or emotionally abused in other ways by your partner or ex-partner? 2 Within the last year, have y ou been kicked, hit, slapped, or otherwise physically hurt by your partner or ex-partner? 2 06/18/2023 Within the last year, have y ou been raped or forced to have any kind of sexual activity by your partner or ex-partner? 2 06/18/2023 Utilities Answer Date Recorded In the past 12 months, has t he [employer], gas, oil or water company threatened to shut off services in your home? No 05/07/2023 Depression Answer Date Recorded Patient Health Questionnaire-2 Score 3 05/07/2023 Comments Unknown Sex and Gender Information Value Date Recorded Sex Assigned at Female 04/17/2022 3:14 PM EST Legal Sex Female 6:20 PM EDT Gender Identity Female 04/17/2022 3:14 PM EST Sexual Orientation Straight 04/17/2022 3: 14 PM EST documented as of this encounter Plan of Treatment Scheduled Orders Name Type Priority Associated Diagnoses Orde r Schedule BI Mammogram Screening Bilateral Imaging Routine Breast cancer screening by mammogram Expected: 11/05/2023 (Approximate), Expires: 08/04/2024 documented as of this encounter Visit Diagnoses Diagnosis Breast cancer screening by mammogram documented in this encounter Additional Health Concerns Assessment Noted Time PHQ-9 Depression Total Score: 5 05/07/20 9:49 AM EST documented as of this encounter Care Teams Industrial Manufacturing Technician Relationship Specialty Start Date End Date Lynda Wade NP [address] [place] [address] PCP - General Family Medicine 03/19/23 documented as of this encounter
--- OUTSIDE RECORDS SUMMARY | 2024-07-27 11:16 | XMS_ITS | Clinical Summary ---
Author Organization [employer] Address [address] [facility] 7t [place] [address] Care Team Providers Care Magnetic Locater Name Role Phone Mauro Lynda ZEFERINO Primary Care Provider [phone] Allergies Active Allergy Reactions Criticality Noted Date Comments Cephalexin Nausea Low 12/26/2011 Codeine Nausea Low 12/26/2011 Cyclobenzaprine Nausea Low 12/26/2011 Metaxalone Nausea Low 12/26/2011 Tramadol Nausea Low 12/26/2011 Medications cholecalciferol (Vitamin D-3) 25 MCG (1000 UT) tablet Take 1 tablet by mouth in the morning. Active Diclofenac Sodium 1 % gel Diclofenac Sodium 1% External Gel QTY: 100 gram Days: 30 Refills: 0 Written: 08/31/21 Patient Instructions: as directed Apply up to 4g to affected area up to 4 times daily. 2 Active fluorouracil (Efudex) 5 % cream APPLY TO IMPACTED AREAS TWICE DAILY FOR UP TO 4 WEEKS 2 Active lactase (Lactaid) 3000 units tablet Take 1 tablet (3,000 Units) by mouth with breakfast, with lunch, and with evening meal. 90 tablet 11 3 Active atorvastatin (Lipitor) 10 MG tabletIndication s:Elevated lipoprotein(a) Take 1 tablet (10 mg) by mouth in the morning. 90 tablet 3 4 Active omeprazole (PriLOSEC) [address] capsule Take 2 capsules (40 mg) by mouth before breakfast. 180 capsule 4 Active fluocinonide (Lidex) 0.05 % external solution APPLY TWICE A DAY TO SCALP UP TO 2 WEEKS NEEDED FOR FLARES 4 Active ketoconazole (NIZOral) 2 % shampoo SHAMPOO TWICE WEEKLY TO SCALP FOR SCALY RASH, LEAVE ON FOR 10 MINUTES THEN RINSE 4 Active naproxen (Naprosyn) 500 MG tabletIndication s:Acute pain of right knee,Pain and swelling of right knee,Knee mass, right Take 1 tablet (500 mg) by mouth 2 times daily. 30 tablet 4 Active escitalopram (Lexapro) 10 MG tabletIndication s:Depression, unspecified depression type Take 1 tablet (10 mg) by mouth Once per day. 30 tablet 11 4 03/12/20 25 Active gabapentin (Neurontin) 300 MG capsuleIndicatio ns:Lumbar spondylosis,Rest less leg TAKE ONE CAPSULE (300MG) BY MOUTH IN THE MORNING AND TAKE TWO CAPSULES (600MG) IN THE EVENING 90 capsule 3 5 Active Active Problems Problem Noted Date Diagnosed Date Chronic right shoulder pain 02/14/2024 Assessment & Plan (02/14/2024 1:31 PM EDT): - Patient has a history of left shoulder replacement. Currently experiencing shoulder pain. No numbness or tingling reported. Pain is not incapacitating but is causing discomfort. - Recommendation for radiographic imaging to evaluate osseous and tendinous structures. Suggested physical therapy/stretching to maintain tendon flexibility and enhance shoulder strength. Declines formal referral in favor of home exercises and gym based work outs - Advised patient to continue using Voltaren gel for pain relief. - will increase Gabapentin to 300mg AM and 600mg PM, monitor for side effects - Follow-up in six weeks MGUS (monoclonal gammopathy of unknown significa nce) 02/14/2024 Overview (02/14/2024): Follows with [facility], stable, follow up every 6 months Assessment & Plan (02/14/2024 1:30 PM EDT): - updated problem list, checking iron to rule out confounding SHAI - continue care per Hem Restless leg 11/12/2023 Assessment & Plan (02/14/2024 1:31 PM EDT): - patient is not exactly feeling restlessness, more so heaviness and pain - will repeat labs to rule out SHAI - increase Gabapentin for symptoms control - consider eval of back (?lumbar radiculopathy) as next steps if not improving Assessment & Plan (11/13/2023 10:43 AM EDT): - Patient reports aching legs at night, possibly related to restless leg syndrome. - Consider increasing Neurontin dosage for better pain control and check iron levels and CBC to assess for possible causes of restless legs. Pancreatic cyst 11/12/2023 Overview (11/12/2023): September 2022 MRI Abdomen with multiple cysts, recommend repeat in 2 years due September 2024 Assessment & Plan (11/13/2023 10:43 AM EDT): Reviewed imaging with patient and monitoring plan Frequent loose stools 05/07/2023 Overview (05/07/2023): ?lactose intolerance Assessment & Plan (05/07/2023 11:00 AM EST): No red flags. Will trial Lactaid prior to dairy containing meals. Lumbar spondylosis 04/19/2022 Assessment & Plan (02/14/2024 1:32 PM EDT): Increasing Gabapentin for pain control, consider more complete assessment at follow up if pain continues to be present in legs Assessment & Plan (11/13/2023 10:46 AM EDT): Increased neurontin dose as tolerated Assessment & Plan (05/07/2023 10:55 AM EST): Chronic and stable, at baseline. No new concerns Encouraged to continue exercising We will increase Gabapentin to 300mg HS for improved pain control. Side effects reviewed. Encouraged to reach out with any concerns or intolerance KAT (dyspnea on exertion) 03/17/2021 Assessment & Plan (05/07/2023 10:53 AM EST): Following with [facility] in [place] No acute concerns today Pain of thigh 07/15/2019 Esophageal reflux 06/11/2019 Assessment & Plan (11/13/2023 10:43 AM EDT): Continue PPI Encouraged stress reduction practice, minimizing irritating foods Assessment & Plan (05/07/2023 10:54 AM EST): On custodial PPI, discussed risks and benefits, encouraged to cut back and monitor for reflux. 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 CMP ordered to be done in 6 weeks. Raynaud's phenomenon 12/25/2012 Assessment & Plan (05/07/2023 10:53 AM EST): Stable and chronic. No new concerns. Fingers are cool to touch. No intervention at this time. Nontraumatic tear of rotator cuff 11/08/2012 Overview (04/19/2022): Note: Dr Swann JAM Anemia 02/06/2012 Assessment & Plan (02/14/2024 1:29 PM EDT): Anemia, normocytic - Patient has a history of anemia. Iron levels were normal in November. Patient reports experiencing fatigue and weakness. - Recommendation to repeat hematologic evaluation to assess for anemia. Suggested iron studies to further evaluate the anemia, in particular because of the leg pain which can be associated with low iron. - she has not tolerated iron supplements in the past, so will only suggest if clinically low levels Depression 02/05/2012 Assessment & Plan (05/07/2023 10:56 AM EST): Stable. Continue Escitalopram. Discussed uptitration is available if desired. Normalized the ongoing experience of grief at loss of a child. Encouraged to reach out therapist if needed. Vitamin D deficiency 02/05/2012 Primary insomnia 12/26/2011 Assessment & Plan (05/07/2023 10:15 AM EST): Feels this is related to pain. Melatonin sometimes works. Wakes often and can usually go back to sleep but not always. Scleroderma 12/26/2011 Assessment & Plan (05/07/2023 11:00 AM EST): Now following with Dr. Martin in [place]. Encouraged to continue with care per Rheum Assessment & Plan (04/19/2022 12:54 PM EST): You request referral to be placed to Rheumatology at [facility] Encounters Date Type Department Care Team Description 07/24/2024 Population Health Risk Score [facility] (C3) Department [address] [place] [id number] Provider, Population Health Generic 06/26/[address] [address] Lynda Wade, ZEFERINO Lumbar spondylosis; Restless leg from Last 3 Months Immunizations Name Administration Dates Next Due Influenza High-dose Quadriva lent Preservative Free 02/08/2021,01/03/2020 Influenza Quadrivalent Adjuvanted 02/13/2023 Influenza injectable quadriv alent IIV4 with preservative 01/18/2021,01/23/2017 Influenza, High Dose Seasona l, Preservative Free 03/05/2022,02/08/2021,02/10/2019,01/27,03/12/2017,02/04/2016 Influenza, IIV3, injectable 02/07/2014, 2,02/26/2011 Influenza, Unspecified 01/03/2020,2017,02/07/2014,02/19,03/13/2009 Influenza, seasonal, injecta ble, preservative free 01/24/2015 Moderna Covid-19 Vaccine 12+ 04/03/2021, 01/24/2021,08/17/2020,07/18 Pneumococcal Conjugate PCV 13 03/08/2016 Pneumococcal Polysaccharide PPSV23 01/03/2020, RSV Bivalent 05/11/2023 TD (adult), 2 Lf tetanus tox oid, preservative free, adsorbed 02/22/2010 Tdap 05/07/2023 Zoster, Recombinant 07/09/2022,01/25/2022 Zoster, live 11/08/2010 Social History Tobacco Use Types Packs/Day Years Used Date Smoking Tobacco: Former Cigarettes Q uit: 1992 Passive Smoke Exposure: Past Smokeless Tobacco: Never Tobacco Cessation:Counseling Given: Not Answered Alcohol Use Standard Drinks/Week Comments Not Currently [...] is your housing situation today? I have jamilacata keller 05/07/[address] you [...] the past 12 months, has t he electric, gas, oil or water company threatened to shut off services in your home? No 05/07/2023 Depression Answer Date Recorded Patient Health Questionnaire-2 Score 3 05/07/2023 Internet Access Answer Date Recorded Internet Access Q1 Yes 02/14/2024 Internet Access Q2 Not on file 02/14/2024 Comments No Sex and Gender Information Value Date Recorded Sex Assigned at Female 04/17/2022 3:14 PM EST Legal Sex Female 6:20 PM EDT Gender Identity Female 04/17/2022 3:14 PM EST Sexual Orientation Straight 04/17/2022 3: 14 PM EST Last Filed Vital Signs Vital Sign Reading Time Taken Comments Blood Pressure 121/69 02/14/2024 9:10 AM EDT Pulse 71 02/14/2024 9:10 AM EDT Temperature 36.2 ??C (97.2 ??F) 02/14/2024 9:10 AM ED T Respiratory Rate - - Oxygen Saturation 100% 02/14/2024 9:10 AM EDT Inhaled Oxygen Concentration - - Weight 67 kg (147 lb 9.6 oz) 11/12/2023 2:13 PM EDT Height 158.8 cm (5' 2.5 ) 11/12/2023 2:13 PM EDT Body Mass Index 26.57 11/12/2023 2:13 PM EDT Plan of Treatment Health Maintenance Due Date Last Done Comments CT Colonography 1950 FIT DNA/Cologuard 1950 FIT 1950 FOBT 1950 Sigmoidoscopy 1950 Alcohol/Substance Use Screening 1962 Mammogram 11/11/2023 11/10/2021, 04/12, 01/21/2018 COVID-19 Vaccine ( season) 2024 03/14/2023, 07/16/2022, 04/03/2021, Additional history exists Influenza Vaccine (#1) 2024 , 03/05/2022, 02/08/2021, Additional history exists Depression Screening 05/07/2024 05/07/2023, 05/07/20 SDOH Screening 05/07/2024 05/07/2023 Tobacco Screening 12/02/2024 12/03/2023 Colonoscopy 02/21/2031 02/21/2021 Colorectal Cancer Screening 02/21/2031 DTaP/Tdap/Td Vaccines (2 - Td or Tdap) 05/07/2033 05/07/2023, 02/22/2010 Pneumococcal Vaccine: 50+ Years Completed 01/03/2020, 03/08/2016, 06/25/2012 Hepatitis C Screening Completed 07/31/2021 Zoster Vaccines Completed 07/09/2022, 01/11, 11/08/2010 RSV Patients and Patients Aged 60 years or older Completed 05/11/2023 HIB Vaccines Aged Out No longer eligi ble based on patient's age to complete this topic HPV Vaccines Aged Out No longer eligi ble based on patient's age to complete this topic Hepatitis A Vaccines Aged Out No long er eligible based on patient's age to complete this topic Hepatitis B Vaccines Aged Out No long er eligible based on patient's age to complete this topic IPV Vaccines Aged Out No longer eligi ble based on patient's age to complete this topic Meningococcal Vaccine Aged Out No daisy faraz eligible based on patient's age to complete this topic RSV under 20 months Aged Out No longe r eligible based on patient's age to complete this topic Rotavirus Vaccines Aged Out No longer eligible based on patient's age to complete this topic Procedures Procedure Name Priority Date/Time Associated Diagnosis Comments MAMMOGRAM GENERIC Routine 11/10/2021 12: 00 AM EDT HM HEPATITIS C ANTIBODY Routine 07/31/2021 COLONOSCOPY Routine 02/21/2021 12:00 AM EDT from Last 3 Months or Most Recently Relevant to Health Maintenance Results * MM Digital Mammo Scr (11/10/2021 12:00 AM EDT) Anatomical Region Laterality Modality Breast Bilateral Mammography 11/10/2021 Narrative 11/10/2021 12:00 AM EDT Refer to the Notes tab for result details Legacy Procedure: MM Digital Mammo Scr Procedure Note ProviderAmanda MD - 08/04/2022 Refer to the Notes tab for result details Legacy Procedure: MM Digital Mammo Scr Historical Provider IMG BI PROCEDURES Final R esult * HM Hepatitis C Antibody (07/31/2021) Hepatitis C Antibody Nonreactive Blood Historical Provider HEALTH MAINTENANCE Final Result * Colonoscopy (02/21/2021 12:00 AM EDT) Anatomical Region Laterality Modality Endoscopy 02/21/2021 Narrative 02/21/2021 12:00 AM EDT Refer to the Notes tab for result details Legacy Procedure: Colonoscopy Procedure Note ProviderAmanda MD - 08/04/2022 Refer to the Notes tab for result details Legacy Procedure: Colonoscopy Historical Provider ENDOSCOPY PROCEDURE ORDER CORBIN Final Result from Last 3 Months or Most Recently Relevant to Health Maintenance Insurance MEDICARE [facility] * Guarantor: Magali Weir Account Type Relation to Patient Date of Phone Billing Address Dental Self Care Teams Magnetic Locater Relationship Specialty Start Date End Date Lynda Wade NP [address] [place] [id number] PCP - General Family Medicine 03/19/23
--- OUTSIDE RECORDS SUMMARY | 2024-07-27 11:16 | XMS_ITS | Encounter Summary ---
Author Organization [employer] Address [address] [facility] 7 [place] [address] Care Team Providers Care Drier Take Off Tender Name Role Phone Lynda Wade DUBBING MACHINE OPERATOR Primary Care Provider [phone] Encounter Details Date Type Department Care Team ([facility] Contact Info) Description 02/20/2024 Telephone [facility] [address] [place] [address] Lynda Wade NP [address] [place], [place] [phone] Social History Tobacco Use Types Packs/Day Years Used Date Smoking Tobacco: Former Cigarettes Q uit: 1993 Passive Smoke Exposure: Past Smokeless Tobacco: Never [...] the past 12 months, has t he [employer], gas, oil or water company threatened to [...] PM EST documented as of this encounter Miscellaneous Notes * Telephone Encounter - Susan Coreas - 02/20/2024 10:26 AM EDT Patient had xray and labs done she would like call back with result [phone] documented in this encounter Plan of Treatment Not on file documented as of this encounter Visit Diagnoses Not on filedocumented in this encounter Additional Health Concerns Assessment Noted Time PHQ-9 Depression Total Score: 5 05/07/20 23 9:49 AM EST documented as of this encounter Care Teams Drier Take Off Tender Relationship Specialty Start Date End Date Lynda Wade NP [address] [place] [address] PCP - General Family Medicine 03/19/23 documented as of this encounter
--- OUTSIDE RECORDS SUMMARY | 2024-07-27 11:16 | XMS_ITS | Encounter Summary ---
Author Organization [employer] Address [address] [facility] 7 [place] [address] Care Team Providers Care Mail Superintendent Name Role Phone Millie Ponce DETONATOR ASSEMBLER Unavailable [phone] Yolette [place] Primary Care Provider Unavail able Darian Jordan Primary Care Provider U Jacobo Mclean Primary Care Provider Unavaila Lynda Kramer NP Primary Care Provider [phone] Encounter Details Date Type Department Care Team ([facility] Contact Info) Description 04/30/2022 Orders Only [facility] MED[facility] [address] [place] [phone] Yolette [place] FNP Vertebrogenic low back pain Social History Tobacco Use Types Packs/Day Years Used Date Smoking Tobacco: Never Assessed Comments Unknown Sex and Gender Information Value Date Recorded Sex Assigned at Female 04/17/2022 3:14 PM EST Legal Sex Female 6:20 PM EDT Gender Identity Female 04/17/2022 3:14 PM EST Sexual Orientation Straight 04/17/2022 3: 14 PM EST COVID-19 Exposure Response Date Recorded In the last 10 days, have yo u been in contact with someone who was confirmed or suspected to have Coronavirus/COVID-19? No / Unsure 04/17/2022 3:33 PM EST documented as of this encounter Plan of Treatment Not on file documented as of this encounter Visit Diagnoses Diagnosis Vertebrogenic low back pain documented in this encounter Care Teams Mail Superintendent Relationship Specialty Start Date End Date Yolette [place] FNP [address] [place] [address] PCP - General Family Medicine 03/29/22 08/13/22 Darian Jordanssaquiles PCP - General Family Medicine 08/14/22 12/16/22 Jacobo Bartlett FNP PCP - General Family Medicine 12/17/22 03/18/23 Lynda Wade NP [address] [place] [id number] PCP - General Family Medicine 03/19/23 Millie Ponce FNP [address] [place] [id number] Family Medicine 03/09/22 08/13/22 documented as of this encounter
--- OUTSIDE RECORDS SUMMARY | 2024-07-27 11:16 | XMS_ITS | Encounter Summary ---
Author Organization [employer] Address 75 [facility] 7 [place] [address] Care Team Providers Care Tax Expert Name Role Phone Lynda Wade HEAT READER Primary Care Provider [phone] Encounter Details Date Type Department Care Team ([facility] Contact Info) Description 02/11/[address] [facility] [address] [place] [address] Lynda Wade NP [address] [place], [place] [phone] Social History Tobacco Use Types Packs/Day Years [...] the past 12 months, has t he [employer], gas, oil or water company threatened to [...] encounter Miscellaneous Notes * Telephone Encounter - Tia Alfred - 02/12/2024 8:31 AM EDT Echo faxed * Telephone Encounter - Damaris Luke - 02/11/2024 11:22 AM EDT Left a voicemail requesting the 2D echo results be faxed to [phone] documented in this encounter Plan of Treatment Not on file documented as of this encounter Visit Diagnoses Not on filedocumented in this encounter Additional Health Concerns Assessment Noted Time PHQ-9 Depression Total Score: 5 05/07/20 23 9:49 AM EST documented as of this encounter Care Teams Tax Expert Relationship Specialty Start Date End Date Lynda Wade NP [address] [place] [address] PCP - General Family Medicine 03/19/23 documented as of this encounter
--- OUTSIDE RECORDS SUMMARY | 2024-07-27 11:16 | XMS_ITS | Encounter Summary ---
Author Organization [employer] Address [address] [facility] 7t [place] [address] Care Team Providers Care Captain/Check Airman Name Role Phone WadeLynda ZEFERINO Primary Care Provider [phone] Encounter Details Date Type Department Care Team ([facility] Contact Info) Description 07/24/2024 Population Health Risk Score [facility] Care [facility] (C3) Department [address] [facility] 7 [place] [phone] Provider, Population Health Generic Social History Tobacco Use Types Packs/Day Years [...] documented as of this encounter Care Teams Captain/Check Airman Relationship Specialty Start Date End Date Lynda Wade NP [address] [place] [address] PCP - General Family Medicine 03/19/23 documented as of this encounter
--- OUTSIDE RECORDS SUMMARY | 2024-07-27 11:16 | XMS_ITS | Encounter Summary ---
Author Organization [employer] Address 75 [facility] 7 [place] [address] Care Team Providers Care Qa Consultant Name Role Phone Millie Ponce ELECTROTYPE SERVICER Unavailable [phone] Yolette [place] Primary Care Provider Unavail able Darian [place] Primary Care Provider U Jacobo Mclean Primary Care Provider Unavaila Lynda Kramer NP Primary Care Provider [phone] Encounter Details Date Type Department Care Team ([facility] Contact Info) Description 05/03/2022 Orders Only [facility] MED[facility] [address] [place] [address] Yolette [place] FNP Social History Tobacco Use Types Packs/Day Years [...] Diagnoses Not on filedocumented in this encounter Care Teams Qa Consultant Relationship Specialty Start Date End Date Yolette [place] FNP [address] [place] [address] PCP - General Family Medicine 03/29/22 08/13/22 Darian Jordan PCP - General Family Medicine 08/14/22 12/16/22 Jacobo Bartlett FNP PCP - General Family Medicine 12/17/22 03/18/23 Lynda Wade NP [address] [place] [address] PCP - General Family Medicine 03/19/23 Millie Ponce FNP [address] [place] [id number] Family Medicine 03/09/22 08/13/22 documented as of this encounter
--- OUTSIDE RECORDS SUMMARY | 2024-07-27 11:16 | XMS_ITS | Encounter Summary ---
Author Organization [employer] Address [address] [place] [address] 7 [place] [address] Care Team Providers Care Surgical Processor Name Role Phone Millie Ponce INDUSTRIAL ELECTRICIAN JOURNEYMAN Unavailable [phone] Yolette [place] Primary Care Provider Unavail able Darian Jordanssaquiles Primary Care Provider U Jacobo Mclean Primary Care Provider Unavaila Lynda Kramer CARPENTER MATE Primary Care Provider [phone] Encounter Details Date Type Department Care Team ([facility] Contact Info) Description 04/10/2022 Abstract [facility] MED[facility] [address] [place] [address] Millie Ponce FNP [address] [place] [address] Social History Tobacco Use Types Packs/Day Years [...] on filedocumented in this encounter Care Teams Surgical Processor Relationship Specialty Start Date End Date Yolette [place] FNP [address] [place] [address] PCP - General Family Medicine 03/29/22 08/13/22 Darian Jordan PCP - General Family Medicine 08/14/22 12/16/22 Jacobo Bartlett FNP PCP - General Family Medicine 12/17/22 03/18/23 [place]da Wade NP [address] [place] [address] PCP - General Family Medicine 03/19/23 Millie Ponce FNP [address] [place] [address] Family Medicine 03/09/22 08/13/22 documented as of this encounter
--- OUTSIDE RECORDS SUMMARY | 2024-07-27 11:17 | XMS_ITS | Encounter Summary ---
Author Organization [employer] Address 75 [facility] 7t [place] [address] Care Team Providers Care Medical Safety Director Name Role Phone Darian Jordanssigned Primary Care Provider Jacobo Cox Primary Care Provider Lynda Pereira NP Primary Care Provider [phone] Reason for Visit * Reason Comments Med Refill Encounter Details Date Type Department Care Team ([facility] st Contact Info) Description 11/15/2022 Refill [facility] [address] [facility] [address] [place] [address] Inge Benedict FNP [address] [place] [phone] Major depressive disorder, remission status unspecified, unspecified whether recurrent; Elevated lipoprotein(a) Social History Tobacco Use Types Packs/Day Years Used Date Smoking Tobacco: Former Cigarettes Q uit: 1993 Passive Smoke Exposure: Past Smokeless Tobacco: Never Alcohol Use Standard Drinks/Week Comments Not Currently 0 (1 standard drink = 0.6 oz pur e alcohol) Comments Unknown Sex and Gender Information Value Date Recorded Sex Assigned at Female 04/17/2022 3:14 PM EST Legal Sex Female 6:20 PM EDT Gender Identity Female 04/17/2022 3:14 PM EST Sexual Orientation Straight 04/17/2022 3: 14 PM EST documented as of this encounter Plan of Treatment Not on file documented as of this encounter Visit Diagnoses Diagnosis Major depressive disorder, remission status unspecified, unspecified whether recurrent 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
== END 2024-07-27 10:25 | disposition home or self-care (01) ==
PROVIDERS: PCP Family Medicine; Visit Provider Orthopaedic Surgery
DX: M16.12 Unilateral primary osteoarthritis, left hip (principal)
CPT/HCPCS: 99213

== ENCOUNTER → 2024-07-27 10:06 | Outpatient (BNVA) | payer MEDICARE, MEDICAID, SELFPAY | PROVIDERS: PCP Family Medicine; Visit Provider Orthopaedic Surgery | DX: M16.12 Unilateral primary osteoarthritis, left hip (principal) | CPT/HCPCS: 99212 ==

== ENCOUNTER 2024-08-11 06:22 | Outpatient (REF) | payer MEDICARE, MEDICAID, SELFPAY ==
--- NOTE | ~2024-08-11 | FL_ITS ---
EXAMINATION: XR FLUOROSCOPY WITH IMAGES CLINICAL INFORMATION: Left hip Primary osteoarthritis. Pain management. COMPARISON: 04/27/2024. TECHNIQUE: Fluoroscopy provided to: Dr. Camarillo Fluoroscopy time: 0.2 minutes DAP: 0.108 mGycm2 Images: 1 FINDINGS: Solitary spot image taken during left hip intra-articular injection. Please refer to the full procedural report for details. FL/FL guidance in treatment room IMPRESSION: Fluoroscopic guidance. Electronically signed by: Sang Kumar MD 08/12/2024 10:19 AM EDT
--- OUTSIDE RECORDS SUMMARY | 2024-08-11 06:24 | XMS_ITS | Encounter Summary ---
Author Organization [employer] Address [address] [place] [address] 7 [place] [address] Care Team Providers Care Senior It Auditor Name Role Phone Millie Ponce MACHINE TOOL DRESSER Unavailable [phone] Yolette Murray Primary Care Provider Unavail able Darian Jordanssaquiles Primary Care Provider U Jacobo Mclean Primary Care Provider Unavaila Lynda Kramer INTERNET AND E BUSINESS PROJECT MANAGER Primary Care Provider [phone] Encounter Details Date Type Department Care Team ([facility] Contact Info) Description 04/10/2022 Abstract [facility] [address] [place] [address] Millie Ponce FNP [address] [place] [address] Social History Tobacco Use Types Packs/Day Years [...] on filedocumented in this encounter Care Teams Senior It Auditor Relationship Specialty Start Date End Date Yolette Murray FNP [address] [place] [address] PCP - General Family Medicine 03/29/22 08/13/22 Darian Jordan PCP - General Family Medicine 08/14/22 12/16/22 Jacobo Bartlett FNP PCP - General Family Medicine 12/17/22 03/18/23 Lynda Wade NP [address] [place] [address] PCP - General Family Medicine 03/19/23 Millie Ponce FNP [address] [place] [address] Family Medicine 03/09/22 08/13/22 documented as of this encounter
--- OUTSIDE RECORDS SUMMARY | 2024-08-11 06:24 | XMS_ITS | Encounter Summary ---
Author Organization [employer] Address 75 [facility] 7 [place] [address] Care Team Providers Care Sap Security Consultant Name Role Phone Lynda Wade PHOTOGRAPHIC PLATEMAKER Primary Care Provider [phone] Encounter Details Date Type Department Care Team ([facility] Contact Info) Description 02/11/2024 Telephone [facility] [address] [place] [address] Lynda Wade NP [address] [place], [place] [phone] Social History Tobacco Use Types Packs/Day Years [...] the past 12 months, has t he [employer], gas, oil or water company threatened to [...] the 2D echo results be faxed to [phone] documented in this encounter Plan of Treatment Not on file documented as of this encounter Visit Diagnoses Not on filedocumented in this encounter Additional Health Concerns Assessment Noted Time PHQ-9 Depression Total Score: 5 05/07/20 23 9:49 AM EST documented as of this encounter Care Teams Sap Security Consultant Relationship Specialty Start Date End Date yLnda Wade NP [address] [place] [address] PCP - General Family Medicine 03/19/23 documented as of this encounter
--- OUTSIDE RECORDS SUMMARY | 2024-08-11 06:24 | XMS_ITS | Clinical Summary ---
Author Organization [employer] Address 75 [facility] 7t [place] [address] Care Team Providers Care Mobile Application Developer Name Role Phone Mauro Lynda ZEFERINO Primary Care Provider Allergies Active Allergy Reactions Criticality Noted Date [...] affected area up to 4 times daily. 09/01/19 22 Active fluorouracil (Efudex) 5 % cream APPLY TO IMPACTED AREAS TWICE DAILY FOR UP TO 4 WEEKS 02/03/20 22 Active lactase (Lactaid) 3000 units tablet Take 1 tablet (3,000 Units) by mouth with breakfast, with lunch, and with evening meal. 90 tablet 11 05/07/20 23 Active atorvastatin (Lipitor) 10 MG tabletIndicatio ns:Elevated lipoprotein(a) Take 1 tablet (10 mg) by mouth in the morning. 90 tablet 3 11/12/19 24 Active fluocinonide (Lidex) 0.05 % external solution APPLY TWICE A DAY TO SCALP UP TO 2 WEEKS NEEDED FOR FLARES 07/18/19 24 Active ketoconazole (NIZOral) 2 % shampoo SHAMPOO TWICE WEEKLY TO SCALP FOR SCALY RASH, LEAVE ON FOR 10 MINUTES THEN RINSE 07/17/19 24 Active naproxen (Naprosyn) 500 MG tabletIndicatio ns:Acute pain of right knee,Pain and swelling of right knee,Knee mass, right Take 1 tablet (500 mg) by mouth 2 times daily. 30 tablet 12/03/19 24 Active escitalopram (Lexapro) 10 MG tabletIndicatio ns:Depression, unspecified depression type Take 1 tablet (10 mg) by mouth Once per day. 30 tablet 11 03/12/20 24 025 Active gabapentin (Neurontin) 300 MG capsuleIndicati ons:Lumbar spondylosis,Res tless leg TAKE ONE CAPSULE (300MG) BY MOUTH IN THE MORNING AND TAKE TWO CAPSULES (600MG) IN THE EVENING 90 capsule 3 06/26/19 25 Active omeprazole (PriLOSEC) [address] capsule TAKE TWO CAPSULES BY MOUTH EVERY DAY BEFORE BREAKFAST 180 capsule 08/04/19 25 Active omeprazole (PriLOSEC) [address] capsule Take 2 capsules (40 mg) by mouth before breakfast. 180 capsule 11/25/19 24 025 Discontinued Active Problems Problem Noted Date Diagnosed Date [...] significa nce) 02/14/2024 Overview (02/14/2024): Follows with [facility] Hematology, stable, follow up every 6 [...] AM EST): Following with [facility] in [place] No acute concerns today Pain of thigh 07/15/2019 Esophageal reflux 06/11/2019 Assessment & Plan (11/13/2023 10:43 AM EDT): Continue PPI Encouraged stress reduction practice, minimizing irritating foods Assessment & Plan (05/07/2023 10:54 AM EST): On intermediate PPI, discussed risks and benefits, encouraged to [...] Following with Renal Q2yr, [facility] In remission Assessment & Plan (04/19/2022 12:59 PM EST): Discussed close lab observance of renal labs while taking NSAID. CMP ordered to be done in 6 weeks. Raynaud's phenomenon 12/25/2012 Assessment & Plan (05/07/2023 10:53 AM EST): Stable and chronic. No new concerns. Fingers are cool to touch. No intervention at this time. Nontraumatic tear of rotator cuff 11/08/2012 Overview (04/19/2022): Note: Dr Hue POLK Anemia 02/06/2012 Assessment & Plan (02/14/2024 1:29 [...] EST): Now following with Dr. Martin in [place]. Encouraged to continue with care per Rheum Assessment & Plan (04/19/2022 12:54 PM EST): You request referral to be placed to Rheumatology at [facility] Encounters Date Type Department Care Team Description 08/01/[address] [address] Trevor Todd PA-C 07/24/2024 Population Health Risk [facility] [address] [phone] Provider, Population Health Generic 06/26/[address] [address] Lynda Wade NP Lumbar spondylosis; Restless leg from Last 3 [...] history exists Depression Screening 05/07/2024 05/07/2023, 05/07/20 23 SDOH Screening 05/07/2024 05/07/2023 Tobacco Screening 12/02/2024 [...] Procedure: MM Digital Mammo Scr Procedure Note Provider, MD Amanda - 08/04/2022 Refer to the Notes tab [...] result details Legacy Procedure: Colonoscopy Procedure Note Provider, MD Amanda - 08/04/2022 Refer to the Notes tab for result details Legacy Procedure: Colonoscopy Historical Provider ENDOSCOPY PROCEDURE ORDER CORBIN Final Result from Last 3 Months or Most Recently Relevant to Health Maintenance Insurance MEDICARE [facility] * Guarantor: Magali Weir Account Type Relation to Patient Date of Phone Billing Address Dental Self Care Teams Mobile Application Developer Relationship Specialty Start Date End Date Lynda Wade NP [address] [place] [address] PCP - General Family Medicine 03/19/23
--- OUTSIDE RECORDS SUMMARY | 2024-08-11 06:24 | XMS_ITS | Encounter Summary ---
Author Organization [employer] Address 75 [facility] 7 [place] [address] Care Team Providers Care Cardiovascular Surgeon Name Role Phone Millie Ponce MARINE FISHERIES TECHNICIAN Unavailable [phone] Yolette Murray Primary Care Provider Unavail able Darian Jordan Primary Care Provider U Jacobo Mclean Primary Care Provider Unavaila Lynda Kramer NP Primary Care Provider [phone] Encounter Details Date Type Department Care Team ([facility] Contact Info) Description 04/30/2022 Orders Only [facility] MED[facility] [address] [place] [phone] Yolette Murray FNP Vertebrogenic low back pain [...] pain documented in this encounter Care Teams Cardiovascular Surgeon Relationship Specialty Start Date End Date Yolette Murray FNP 102 [place] [address] PCP - General Family Medicine 03/29/22 08/13/22 Darian Jordanssaquiles PCP - General Family Medicine 08/14/22 12/16/22 Jacobo Bartlett FNP PCP - General Family Medicine 12/17/22 03/18/23 Lynda Wade NP [address] [place] [address] PCP - General Family Medicine 03/19/23 Millie Ponce FNP [address] [place] [address] Family Medicine 03/09/22 08/13/22 documented as of this encounter
--- OUTSIDE RECORDS SUMMARY | 2024-08-11 06:24 | XMS_ITS | Encounter Summary ---
Author Organization [email or web address] Address 75 [facility] 7 [place] [address] Care Team Providers Care Linecasting Machine Keyboard Operator Name Role Phone Lynda Wade TISSUE PACKER Primary Care Provider [phone] Encounter Details Date Type Department Care Team ([facility] Contact Info) Description 02/20/2024 Telephone [facility] [address] [place] [address] Lynda Wade NP [address] [place], [place] [phone] Social History Tobacco Use Types Packs/Day Years [...] the past 12 months, has t he [employer], gas, oil or water company threatened to [...] she would like call back with result [phone] documented in this encounter Plan of Treatment Not on file documented as of this encounter Visit Diagnoses Not on filedocumented in this encounter Additional Health Concerns Assessment Noted Time PHQ-9 Depression Total Score: 5 05/07/20 23 9:49 AM EST documented as of this encounter Care Teams Linecasting Machine Keyboard Operator Relationship Specialty Start Date End Date Lynda Wade NP [address] [place] [address] PCP - General Family Medicine 03/19/23 documented as of this encounter
--- OUTSIDE RECORDS SUMMARY | 2024-08-11 06:24 | XMS_ITS | Encounter Summary ---
Author Organization [employer] Address 75 [facility] 7 [place] [address] Care Team Providers Care Mouse Breeder Name Role Phone Lynda Wade NP Primary Care Provider [phone] Reason for Referral * Imaging (Routine) - Closed Specialty Diagnoses / Procedures Referred By Oliver valerio Referred To Contact Radiology Diagnoses Breast cancer screening by mammogram Procedures BI Mammogram Screening Bilateral Lynda Wade NP [address] [place] [address] Phone: tel: fax: Referral ID Status Reason Start Date Expiration Date Visits Re quested Visits Authorized [id number] Closed 08/05/2023 08/04/2024 1 1 Encounter Details Date Type Department Care Team ([facility] Contact Info) Description 08/05/2023 Orders Only [facility] [address] [place] [phone] Lynda Wade NP [address] [place] [address] Breast cancer screening by mammogram Social History [...] the past 12 months, has t he [employer], gas, oil or water company threatened to [...] documented as of this encounter Care Teams Mouse Breeder Relationship Specialty Start Date End Date Lynda Wade NP [address] [place] [address] PCP - General Family Medicine 03/19/23 documented as of this encounter
--- OUTSIDE RECORDS SUMMARY | 2024-08-11 06:24 | XMS_ITS | Encounter Summary ---
Author Organization [employer] Address 75 [facility] 7 [place] [address] Care Team Providers Care Rn Lvn Name Role Phone Millie Ponce STRIPE MATCHER Unavailable [phone] Yolette Murray Primary Care Provider Unavail able Darian Jordan Primary Care Provider U Jacobo Mclean Primary Care Provider Unavaila Lynda Kramer NP Primary Care Provider [phone] Encounter Details Date Type Department Care Team ([facility] Contact Info) Description 05/03/2022 Orders Only [facility] [address] [place] [address] Yolette Murray FNP Social History Tobacco Use [...] on filedocumented in this encounter Care Teams Rn Lvn Relationship Specialty Start Date End Date Yolette Murray FNP [address] [place] [address] PCP - General Family Medicine 03/29/22 08/13/22 Darian Jordan PCP - General Family Medicine 08/14/22 12/16/22 Jacobo Bartlett FNP PCP - General Family Medicine 12/17/22 03/18/23 Lynda Wade NP [address] [place] [address] PCP - General Family Medicine 03/19/23 Millie Ponce FNP [address] [place] [address] Family Medicine 03/09/22 08/13/22 documented as of this encounter
--- OUTSIDE RECORDS SUMMARY | 2024-08-11 06:24 | XMS_ITS | Encounter Summary ---
Author Organization [employer] Address 75 [facility] 7t [place] [address] Care Team Providers Care Marker Machine Attendant Name Role Phone Darian Jordanssigned Primary Care Provider Jacobo Cox Primary Care Provider Lynda Pereira NP Primary Care Provider [phone] Reason for Visit * Reason Comments Med Refill Encounter Details Date Type Department Care Team ([facility] Contact Info) Description 11/15/2022 Refill [facility] [address] [facility] [address] [place] [address] Inge Benedict FNP [address] [place] [address] Major depressive disorder, remission status unspecified, unspecified [...] metabolism documented in this encounter Care Teams Marker Machine Attendant Relationship Specialty Start Date End Date Darian Jordan PCP - General Family Medicine 08/14/22 12/16/22 Jacobo Bartlett FNP PCP - General Family Medicine 12/17/22 03/18/23 Lynda Wade NP [address] [place] [address] PCP - General Family Medicine 03/19/23 documented as of this encounter
== END 2024-08-11 06:23 | disposition home or self-care (01) ==
LOC: CF 06:22
PROVIDERS: Visit Provider Anesthesiology
DX: M16.12 Unilateral primary osteoarthritis, left hip (principal); M25.552 Pain in left hip
CPT/HCPCS: 20610; 77002; J2003; J2795; J3301; Q9967

== ENCOUNTER 2024-08-11 10:18 | Outpatient (AMB) | payer MEDICARE, MEDICAID, SELFPAY ==
[2024-08-11 10:22] VITALS: BP 142/67; PULSE 63; RESP 16; O2SAT 99
--- NOTE | 2024-08-11 10:22 | MHC.OFFVIS ---
Vital Signs 08/11/24 10:22 08/11/24 10:43 BP 142/67 H 146/64 H Blood Pressure Location Lt brachial Rt brachial Position Sitting Sitting Respiration 16 16 Pulse 63 61 Pulse Source Pulse Oximeter Pulse Oximeter Pulse Oximetry (%) 99 99 Oxygen Delivery Method Room Air Room Air Intake Visit Reasons: LEFT HIP INJECTION Media Specialist Required: No Allergies cephalexin Adverse Reaction (Unknown, Verified 08/11/24 10:23) Nausea codeine Adverse Reaction (Unknown, Verified 08/11/24 10:23) Nausea cyclobenzaprine [From Flexeril] Adverse Reaction (Unknown, Verified 08/11/24 10:23) Nausea metaxalone Adverse Reaction (Unknown, Verified 08/11/24 10:23) Nausea tramadol Adverse Reaction (Unknown, Verified 08/11/24 10:23) Nausea Medication List - Last Reconciled 08/11/24 by Silvia Barahona LPN atorvastatin 10 mg PO DAILY cholecalciferol (vitamin D3) 25 mcg PO DAILY diclofenac sodium 1% 4 grams topical QID escitalopram oxalate 10 mg PO DAILY fluorouracil 5% 2 appl topical BID gabapentin 300 mg PO DAILY omeprazole 20 mg PO DAILY PFSH Medical History Porokeratosis Urinary frequency Insomnia Nontraumatic tear of rotator cuff Lumbar spondylitis Hyperlipidemia Facial nerve disease Esophageal reflux KAT (dyspnea on exertion) Depression Surgical History H/O shoulder replacement H/O kidney removal Family History Brother Cutaneous lupus erythematosus Father Prostate cancer Other Autoimmune disease Family history of rheumatoid arthritis Family history of systemic lupus erythematosus Family history of thyroid disease Social History Household Members: Spouse Alcohol intake: current Alcohol intake frequency: holidays/special occasions only Alcohol type: beer Patient Tobacco Use Status: Never used Tobacco service: No Current occupational status: retired 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 Informed consent was explained to the patient were the risks were delineated as bleeding infection peripheral nerve damage. The patient came to the operating room and was positioned on right lateral decubitus position on operating table. Time-out was performed delineating name and date of of the patient side and site of the procedure. non dependent left hip was prepped with ChloraPrep and draped with sterile utility towels. C-arm was brought over the operating field and left hip joint was delineated on the screen. Projection of the upper portion of the left trochanter was injected with mixture of lidocaine 2% and ropivacaine 0.5% one-to-one. after that 22 gauge 5 in needle was inserted through the skin wheal and advanced alongside the femoral neck on intermittent anterior posterior and lateral views. When anterior posterior view demonstrated the tip of the needle in the silhouette of the hip joint injection of the contrast was performed delineating arthrogram. No intravascular spread of the contrast was noted. After that treatment solution containing ropivacaine 0.5% 3 mL and Kenalog 40 mg was injected into the joint. The needle was withdrawn sterile Band-Aid was applied. The patient tolerated the procedure well. She was taken outside of the operating room to recovery room where she recovered uneventfully. Orders: Orders FL guidance in treatment room Today M16.12 - Unilateral primary osteoarthritis, left hip Coding Level of Care Code Procedure Only Diagnoses Osteoarthritis of left hip M16.12 Left hip pain M25.552
[2024-08-11 10:43] VITALS: BP 146/64; PULSE 61; RESP 16; O2SAT 99
--- OUTSIDE RECORDS SUMMARY | 2024-08-11 12:04 | XMS_ITS | Clinical Summary ---
Author Organization [employer] Address 75 [facility] 7t [place] [address] Care Team Providers Care Floor Runner Name Role Phone Mauro Lynda ZEFERINO Primary Care Provider [phone] Allergies Active Allergy Reactions Criticality Noted Date [...] significa nce) 02/14/2024 Overview (02/14/2024): Follows with [facility] Hematology, stable, follow up every 6 [...] AM EST): Following with [facility] in [place] No acute concerns today Pain of thigh 07/15/2019 Esophageal reflux 06/11/2019 Assessment & Plan (11/13/2023 10:43 AM EDT): Continue PPI Encouraged stress reduction practice, minimizing irritating foods Assessment & Plan (05/07/2023 10:54 AM EST): On fdc PPI, discussed risks and benefits, encouraged to [...] Following with Renal Q2yr, [facility] In remission Assessment & Plan (04/19/2022 [...] EST): Now following with Dr. Martin in [place]. Encouraged to continue with care per Rheum Assessment & Plan (04/19/2022 12:54 PM EST): You request referral to be placed to Rheumatology at [facility] Encounters Date Type Department Care Team Description 08/01/[address] [address] Trevor Todd PA-C 07/24/2024 Population Health Risk Score [facility] [address] [phone] Provider, Population Health Generic 06/26/[address] [address] Lynda Wade NP Lumbar spondylosis; Restless leg [...] Recently Relevant to Health Maintenance Insurance MEDICARE [facility] * Guarantor: Magali Weir Account Type Relation to Patient Date of Phone Billing Address Dental Self Care Teams Floor Runner Relationship Specialty Start Date End Date Lynda Wade NP [address] [place] [address] PCP - General Family Medicine 03/19/23
--- OUTSIDE RECORDS SUMMARY | 2024-08-11 12:04 | XMS_ITS | Encounter Summary ---
Author Organization [employer] Address 75 [facility] 7 [place] [address] Care Team Providers Care Napper Fixer Name Role Phone Millie Ponce DRYWALL FINISHING FOREMAN Unavailable [phone] Yolette Murray Primary Care Provider Unavail able Darian Jordan Primary Care Provider U Jacobo Mclean Primary Care Provider Unavaila Lynda Kramer NP Primary Care Provider [phone] Encounter Details Date Type Department Care Team ([facility] Contact Info) Description 05/03/2022 Orders Only [facility] [address] [place] [address] Yolette Murray FNP Social History Tobacco Use [...] on filedocumented in this encounter Care Teams Napper Fixer Relationship Specialty Start Date End Date Yolette Murray FNP [address] [place] [address] PCP - General Family Medicine 03/29/22 08/13/22 Darian Jordan PCP - General Family Medicine 08/14/22 12/16/22 Jacobo Bartlett FNP PCP - General Family Medicine 12/17/22 03/18/23 Lynda Wade NP [address] [place] [address] PCP - General Family Medicine 03/19/23 Millie Ponce FNP [address] [place] [address] Family Medicine 03/09/22 08/13/22 documented as of this encounter
--- OUTSIDE RECORDS SUMMARY | 2024-08-11 12:04 | XMS_ITS | Encounter Summary ---
Author Organization [employer] Address [address] [place] [address] 7 [place] [address] Care Team Providers Care Winch Runner Name Role Phone Millie Ponce INSIGHTS STRATEGIST Unavailable [phone] Yolette Murray Primary Care Provider Unavail able Darian Jordanssaquiles Primary Care Provider U Jacobo Mclean Primary Care Provider Unavaila Lynda Kramer AGRICULTURAL LOAN OFFICER Primary Care Provider [phone] Encounter Details Date Type Department Care Team ([facility] Contact Info) Description 04/10/2022 Abstract [facility] [address] [place] [address] Millie Ponce FNP [address] [place] [address] Social History Tobacco Use Types Packs/Day Years [...] on filedocumented in this encounter Care Teams Winch Runner Relationship Specialty Start Date End Date Yolette Murray FNP [address] [place] [address] PCP - General Family Medicine 03/29/22 08/13/22 Darian Jordan PCP - General Family Medicine 08/14/22 12/16/22 Jacobo Bartlett FNP PCP - General Family Medicine 12/17/22 03/18/23 Lynda Wade NP 102 [place] [address] PCP - General Family Medicine 03/19/23 Millie Ponce FNP [address] [place] [address] Family Medicine 03/09/22 08/13/22 documented as of this encounter
--- OUTSIDE RECORDS SUMMARY | 2024-08-11 12:04 | XMS_ITS | Encounter Summary ---
Author Organization [employer] Address 75 [facility] 7 [place] [address] Care Team Providers Care Junior Administrative Assistant Name Role Phone Lynda Wade OYSTERMAN Primary Care Provider [phone] Encounter Details Date Type Department Care Team ([facility] Contact Info) Description 02/20/2024 Telephone [facility] [address] [place] [address] Lynda Wade NP [address] [place], [place] [id number] Social History Tobacco Use Types Packs/Day Years [...] the past 12 months, has t he [employer], gas, oil or water company threatened to [...] she would like call back with result [phone] documented in this encounter Plan of Treatment Not on file documented as of this encounter Visit Diagnoses Not on filedocumented in this encounter Additional Health Concerns Assessment Noted Time PHQ-9 Depression Total Score: 5 05/07/20 23 9:49 AM EST documented as of this encounter Care Teams Junior Administrative Assistant Relationship Specialty Start Date End Date Lynda Wade NP [address] [place] [address] PCP - General Family Medicine 03/19/23 documented as of this encounter
--- OUTSIDE RECORDS SUMMARY | 2024-08-11 12:04 | XMS_ITS | Encounter Summary ---
Author Organization [employer] Address [address] [facility] 7t [place] [address] Care Team Providers Care Mail Inserter Name Role Phone Darian Jordanssigned Primary Care Provider Jacobo Cox Primary Care Provider Lynda Pereira NP Primary Care Provider [phone] Reason for Visit * Reason Comments Med Refill Encounter Details Date Type Department Care Team ([facility] st Contact Info) Description 11/15/2022 Refill [facility] [address] [facility] [address] [place] [address] Inge Benedict FNP [address] [place] [address] Major depressive disorder, remission status unspecified, unspecified [...] metabolism documented in this encounter Care Teams Mail Inserter Relationship Specialty Start Date End Date Darian Jordan PCP - General Family Medicine 08/14/22 12/16/22 Jacobo Bartlett FNP PCP - General Family Medicine 12/17/22 03/18/23 Lynda Wade NP [address] [place] [address] PCP - General Family Medicine 03/19/23 documented as of this encounter
--- OUTSIDE RECORDS SUMMARY | 2024-08-11 12:04 | XMS_ITS | Encounter Summary ---
Author Organization [employer] Address 75 [facility] 7 [place] [address] Care Team Providers Care Mass Communications Instructor Name Role Phone Millie Ponce HIGHWAY DESIGN ENGINEER Unavailable [phone] Yolette Murray Primary Care Provider Unavail able Darian Jordan Primary Care Provider U Jacobo Mclean Primary Care Provider Unavaila Lynda Kramer NP Primary Care Provider [phone] Encounter Details Date Type Department Care Team ([facility] Contact Info) Description 04/30/2022 Orders Only [facility] [address] [place] [phone] Yolette Murray FNP Vertebrogenic low back pain [...] pain documented in this encounter Care Teams Mass Communications Instructor Relationship Specialty Start Date End Date Yolette Murray FNP 102 [place] [address] PCP - General Family Medicine 03/29/22 08/13/22 Darian Jordanssaquiles PCP - General Family Medicine 08/14/22 12/16/22 Jacobo Bartlett FNP PCP - General Family Medicine 12/17/22 03/18/23 Lynda Wade NP [address] [place] [address] PCP - General Family Medicine 03/19/23 Mlilie Ponce FNP [address] [place] [address] Family Medicine 03/09/22 08/13/22 documented as of this encounter
--- OUTSIDE RECORDS SUMMARY | 2024-08-11 12:04 | XMS_ITS | Encounter Summary ---
Author Organization [employer] Address [address] [facility] 7 [place] [address] Care Team Providers Care Mechanical Process Engineer Name Role Phone Lynda Wade NP Primary Care Provider [phone] Reason for Referral * Imaging (Routine) - Closed Specialty Diagnoses / Procedures Referred By Oliver valerio Referred To Contact Radiology Diagnoses Breast cancer screening by mammogram Procedures BI Mammogram Screening Bilateral Lynda Wade NP [address] [place] [address] Phone: tel: fax: Referral ID Status Reason Start Date Expiration Date Visits Re quested Visits Authorized [id number] Closed 08/05/2023 08/04/2024 1 1 Encounter Details Date Type Department Care Team ([facility] Contact Info) Description 08/05/2023 Orders Only [facility] [address] [place] [phone] Lynda Wade NP [address] [place] [address] Breast cancer screening by mammogram Social History [...] the past 12 months, has t he [employer], gas, oil or water company threatened to [...] documented as of this encounter Care Teams Mechanical Process Engineer Relationship Specialty Start Date End Date Lynda Wade NP [address] [place] [address] PCP - General Family Medicine 03/19/23 documented as of this encounter
--- OUTSIDE RECORDS SUMMARY | 2024-08-11 12:04 | XMS_ITS | Encounter Summary ---
Author Organization [employer] Address [address] [facility] 7 [place] [address] Care Team Providers Care Towel Sewer Name Role Phone Lynda Wade SENIOR QUALITY ASSURANCE ENGINEER Primary Care Provider [phone] Encounter Details Date Type Department Care Team ([facility] Contact Info) Description 02/11/2024 Telephone [facility] [address] [place] [address] Lynda Wade NP 102 [place], [place] [id number] Social History Tobacco Use Types Packs/Day Years [...] the past 12 months, has t he [employer], gas, oil or water company threatened [...] the 2D echo results be faxed to [phone] documented in this encounter Plan of Treatment Not on file documented as of this encounter Visit Diagnoses Not on filedocumented in this encounter Additional Health Concerns Assessment Noted Time PHQ-9 Depression Total Score: 5 05/07/20 23 9:49 AM EST documented as of this encounter Care Teams Towel Sewer Relationship Specialty Start Date End Date Lynda Wade NP [address] [place] [address] PCP - General Family Medicine 03/19/23 documented as of this encounter
== END 2024-08-11 10:43 | disposition home or self-care (01) ==
LOC: HO.PMCPRC 10:18
PROVIDERS: PCP Family Medicine; Visit Provider Anesthesiology
DX: M16.12 Unilateral primary osteoarthritis, left hip (principal); M25.552 Pain in left hip
CPT/HCPCS: 20610; 77002

== ENCOUNTER 2024-09-07 12:49 | Outpatient (AMB) | payer MEDICARE, MEDICAID, SELFPAY ==
--- NOTE | 2024-09-07 13:05 | MHC.OFFVIS ---
Vital Signs 09/07/24 13:06 Height 5 ft 2 in Weight 150 lb BMI 27.4 BP 138/63 Blood Pressure Location Rt brachial Position Sitting Pulse 69 Pulse Source Pulse Oximeter Pulse Oximetry (%) 99 Oxygen Delivery Method Room Air Intake Visit Reasons: LEFT HIP INJECTION/08/11/24 Intake Note: Pain today 11/19 Film Replacement Orderer Required: No Accompanied by: Self / Same As Patient Allergies cephalexin Adverse Reaction (Unknown, Verified 09/07/24 13:06) Nausea codeine Adverse Reaction (Unknown, Verified 09/07/24 13:06) Nausea cyclobenzaprine [From Flexeril] Adverse Reaction (Unknown, Verified 09/07/24 13:06) Nausea metaxalone Adverse Reaction (Unknown, Verified 09/07/24 13:06) Nausea tramadol Adverse Reaction (Unknown, Verified 09/07/24 13:06) Nausea HPI Comments Details: Magali is very pleasant 74 years old female who presents in my office with complains on pain in the left groin. She was referred to me for intra-articular left joint hip injection. She reported that she felt significant pain improvement immediately after the procedure. She reported that she had improved mobility. However next day after the injection she fell flat on the ground and she thought that she injured multiple places in her body including her left hip. She reports that her pain in the left groin is back to baseline. She reports that she can not sleep normally because of her pain if she has positioned on the side. She is able to sleep on her back. She can plus-minus do activities of daily living. She can take care of herself, she can not function normally. She is retired individual. She reports that movements aggravate her pain. She denies weather changes aggravate her pain. She reports her pain as lancinating aching stabbing sensation. She had multiple images of her hip joint x-rays etc.. She never had physical therapy. She had left intra-articular hip steroid injection with me. Her past medical history significant for anemia and shortness of breath. Surgical history partial nephrectomy 2015 for kidney cancer, shoulder surgery x3 and ovarian cyst surgery. Social history she is retired individual, she smoked 25 years ago but since then she never smoked. She drinks 1 beer per day. She drinks 2 coffees a day. She denies recreational drugs. [facility] Medical History Porokeratosis Urinary frequency Insomnia Nontraumatic tear of rotator cuff Lumbar spondylitis Hyperlipidemia Facial nerve disease Esophageal reflux KAT (dyspnea on exertion) Depression Surgical History H/O shoulder replacement H/O kidney removal Family History Brother Cutaneous lupus erythematosus Father Prostate cancer Other Autoimmune disease Family history of rheumatoid arthritis Family history of systemic lupus erythematosus Family history of thyroid disease Social History Household Members: Spouse Alcohol intake: current Alcohol intake frequency: holidays/special occasions only Alcohol type: beer Patient Tobacco Use Status: Never used Tobacco service: No Current occupational status: retired 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 Review of Systems Const All systems reviewed & are unremarkable except as noted in HPI and below ENT Reports Normal hearing present Neuro Reports Normal hearing present, Denies Abnormal speech present, Denies confusion and Denies Sensory deficit (Neuro) Psych Denies confusion Physical Exam Vital Signs: Last Vital Signs Pulse 69 09/07/24 13:06 BP 138/63 09/07/24 13:06 Pulse Ox 99 09/07/24 13:06 Oxygen Delivery Method Room Air 09/07/24 13:06 BMI result Body Mass Index 27.4 Const General: no acute distress; No confusion Orientation/consciousness: patient oriented x3 and No confusion Eyes General: appearance normal, both eyes and all related structures Pupils: Equal, round and reactive pupils present EOM: EOMs intact bilaterally Neck Neck: Yes full ROM Chest Chest palpation & inspection: normal inspection of the chest Resp Effort & Inspection: normal respiratory effort, able to speak in complete sentences, normal respiratory pattern, no audible wheezes and no cough Cardio Jugular venous distension: no JVD GI Inspection: Yes normal to inspection Neuro General: patient oriented x3, gait normal and No confusion Cranial nerves: Yes CN's II-XII intact bilaterally, Yes Equal, round and reactive pupils present, Yes Normal hearing present and Yes Ability to bilaterally elevate shoulders present Speech: No Abnormal speech present Gait exam (Neuro): Normal gait present Motor exam (neuro): 5/5 motor strength present throughout Sensory Exam: No Sensory deficit (Neuro) Extrem Other: 15 degrees of valgus in the left knee with valgus gait pattern but minimal antalgia. Tenderness to palpation lateral compartment. Full extension and flexion of the left knee. 1+ valgus instability. Left hip notable for positive impingement and positive Stinchfield although range of motion maintained General: No pedal edema Psych Speech and movement: Normal speech and movement present Affect: normal affect Attitude: cooperative Thought process: Normal thought process present Thought content: Normal thought content present Insight: Good insight present (Psych) Judgement: Good judgement present (Psych) Results Reviewed Results Reviewed: AP pelvis shows osiz-eo-mufvtccs bilateral hip arthritis left greater than right Radiographs show valgus pattern osteoarthritis of the left knee I personally reviewed the MR images. MRI confirms severe arthritis left lateral compartment of the knee Assessment & Plan Assessment & Plan (1) Osteoarthritis of left hip: Code(s): M16.12 - Unilateral primary osteoarthritis, left hip Category: Medical (2) Left hip pain: Code(s): M25.552 - Pain in left hip Category: Medical (3) Chronic pain syndrome: Code(s): G89.4 - Chronic pain syndrome Category: Medical Plan Dr. Alexander explained to this patient that if the injection will not be helpful she would need to come back and she will be sent for the MRI of the left hip joint. I explained to the patient that if she will not be offered a surgery with Dr. Alexander or she would not like to accept the surgery we can offer her repeat steroid injections, as well as other procedures which could potentially alleviate pain in her hip. Patient expressed understanding. No new appointment will be scheduled. Next appointment as needed. Coding Level of Care Code New Pt Level 3 (14783) Diagnoses Osteoarthritis of left hip M16.12 Left hip pain M25.552 Chronic pain syndrome G89.4
[2024-09-07 13:06] VITALS: BP 138/63; PULSE 69; O2SAT 99; BMI 27.4
--- OUTSIDE RECORDS SUMMARY | 2024-09-07 15:11 | XMS_ITS | Encounter Summary ---
Author Organization [employer] Address [address] [place] [address] 7 [place] [address] Care Team Providers Care Electronics Instructor Name Role Phone Millie Ponce ROAD PATCHER Unavailable [phone] Yolette Murray Primary Care Provider Unavail able Darian Jordanssaquiles Primary Care Provider U Jacobo Mclean Primary Care Provider Unavaila Lynda Kramer GLOBAL TECHNICAL WRITER Primary Care Provider [phone] Encounter Details Date Type Department Care Team ([facility] Contact Info) Description 04/10/2022 Abstract [facility] [address] [place] [address] Millie Ponce FNP 102 [place] [address] Social History Tobacco Use Types Packs/Day Years [...] on filedocumented in this encounter Care Teams Electronics Instructor Relationship Specialty Start Date End Date Yolette Murray FNP [address] [place] [address] PCP - General Family Medicine 03/29/22 08/13/22 Darian Jordan PCP - General Family Medicine 08/14/22 12/16/22 Jacobo Bartlett FNP PCP - General Family Medicine 12/17/22 03/18/23 Lynda Wade NP 102 [place] [address] PCP - General Family Medicine 03/19/23 Millie Ponce FNP [address] [place] [address] Family Medicine 03/09/22 08/13/22 documented as of this encounter
--- OUTSIDE RECORDS SUMMARY | 2024-09-07 15:11 | XMS_ITS | Encounter Summary ---
Author Organization [employer] Address 75 [facility] 7 [place] [address] Care Team Providers Care Balance Wheel Hand Filer Name Role Phone Millie Ponce FLEET SALES MANAGER Unavailable [phone] Yolette Murray Primary Care Provider Unavail able Darian Jordan Primary Care Provider U Jacobo Mclean Primary Care Provider Unavaila Lynda Kramer NP Primary Care Provider [phone] Encounter Details Date Type Department Care Team ([facility] Contact Info) Description 05/03/2022 Orders Only [facility] [address] [place] [address] Yolette Murray FNP Social History Tobacco Use [...] on filedocumented in this encounter Care Teams Balance Wheel Hand Filer Relationship Specialty Start Date End Date Yolette Murray FNP [address] [place] [address] PCP - General Family Medicine 03/29/22 08/13/22 Darian Jordan PCP - General Family Medicine 08/14/22 12/16/22 Jacobo Bartlett FNP PCP - General Family Medicine 12/17/22 03/18/23 Lynda Wade NP [address] [place] [address] PCP - General Family Medicine 03/19/23 Millie Ponce FNP [address] [place] [address] Family Medicine 03/09/22 08/13/22 documented as of this encounter
--- OUTSIDE RECORDS SUMMARY | 2024-09-07 15:11 | XMS_ITS | Encounter Summary ---
Author Organization [employer] Address [address] [facility] 7 [place] [address] Care Team Providers Care Circuit Manager Name Role Phone Lynda Wade HOSPITALITY ASSOCIATE Primary Care Provider [phone] Encounter Details Date Type Department Care Team ([facility] Contact Info) Description 02/11/2024 Telephone [facility] [address] [place] [address] Lynda Wade NP 102 [place], [place] [phone] Social History Tobacco Use Types Packs/Day Years [...] the past 12 months, has t he [employer], gas, oil or water company threatened to [...] the 2D echo results be faxed to [phone] documented in this encounter Plan of Treatment Not on file documented as of this encounter Visit Diagnoses Not on filedocumented in this encounter Additional Health Concerns Assessment Noted Time PHQ-9 Depression Total Score: 5 05/07/20 23 9:49 AM EST documented as of this encounter Care Teams Circuit Manager Relationship Specialty Start Date End Date Lynda Wade NP [address] [place] [address] PCP - General Family Medicine 03/19/23 documented as of this encounter
--- OUTSIDE RECORDS SUMMARY | 2024-09-07 15:11 | XMS_ITS | Encounter Summary ---
Author Organization [employer] Address 75 [facility] 7 [place] [address] Care Team Providers Care Die Cutter Apprentice Name Role Phone Lynda Wade HUMAN RESOURCES BENEFITS ADMINISTRATOR Primary Care Provider [phone] Encounter Details Date Type Department Care Team ([facility] Contact Info) Description 02/20/2024 Telephone [facility] [address] [place] [address] Lynda Wade NP 102 [place], [place] [phone] Social History Tobacco Use Types Packs/Day Years [...] the past 12 months, has t he [employer], gas, oil or water company threatened to [...] she would like call back with result [phone] documented in this encounter Plan of Treatment Not on file documented as of this encounter Visit Diagnoses Not on filedocumented in this encounter Additional Health Concerns Assessment Noted Time PHQ-9 Depression Total Score: 5 05/07/20 23 9:49 AM EST documented as of this encounter Care Teams Die Cutter Apprentice Relationship Specialty Start Date End Date Lynda Wade NP [address] [place] [address] PCP - General Family Medicine 03/19/23 documented as of this encounter
--- OUTSIDE RECORDS SUMMARY | 2024-09-07 15:11 | XMS_ITS | Clinical Summary ---
Author Organization [employer] Address 75 [facility] 7t [place] [address] Care Team Providers Care Traffic Routing Engineer Name Role Phone Mauro Lynda ZEFERINO Primary Care Provider [phone] Allergies Active Allergy Reactions Criticality Noted Date [...] the morning. 90 tablet 3 4 Active fluocinonide (Lidex) 0.05 % external [...] THE EVENING 90 capsule 3 5 Active omeprazole (PriLOSEC) [address] capsule TAKE TWO CAPSULES BY MOUTH EVERY DAY BEFORE BREAKFAST 180 capsule 5 Active Active Problems Problem Noted Date [...] significa nce) 02/14/2024 Overview (02/14/2024): Follows with [facility] Hematology, stable, follow up every [...] AM EST): Following with [facility] in [place] No acute concerns today Pain of thigh 07/15/2019 Esophageal reflux 06/11/2019 Assessment & Plan (11/13/2023 10:43 AM EDT): Continue PPI Encouraged stress reduction practice, minimizing irritating foods Assessment & Plan (05/07/2023 10:54 AM EST): On long-term PPI, discussed risks and benefits, encouraged to [...] Following with [facility] In remission Assessment & Plan (04/19/2022 12:59 [...] EST): Now following with Dr. Martin in [place]. Encouraged to continue with care per Rheum Assessment & Plan (04/19/2022 12:54 PM EST): You request referral to be placed to Rheumatology at [facility] Encounters Date Type Department Care Team Description 08/13/2024 Patient Outreach [address] [address] Minoo Fuentes LPN 08/12/[address] [phone] Lynda Wade NP 08/01/[address] [address] Trevor Todd PA-C 07/24/2024 Population Health Risk Score [facility] Department [address] [place] [phone] Provider, Population Health Generic 06/26/[address] [address] Lynda Wade NP Lumbar spondylosis; Restless leg [...] your housing situation today? I have jamila sing 05/07/[address] you li [...] Antibody (07/31/2021) Hepatitis C Antibody Nonreactive Blood us Historical Provider HEALTH MAINTENANCE Final Result * Colonoscopy (02/21/2021 12:00 AM EDT) Anatomical Region Laterality Modality Endoscopy 02/21/2021 Narrative 02/21/2021 12:00 AM EDT Refer to the Notes tab for result details Legacy Procedure: Colonoscopy Procedure Note ProviderAmanda MD - 08/04/2022 Refer to the Notes tab for result details Legacy Procedure: Colonoscopy us Historical Provider ENDOSCOPY PROCEDURE ORDER CORBIN Final Result from Last 3 Months or Most Recently Relevant to Health Maintenance Insurance MEDICARE [facility] * Guarantor: Magali Weir Account Type Relation to Patient Date of Phone Billing Address Dental Self Care Teams Traffic Routing Engineer Relationship Specialty Start Date End Date Lynda Wade NP [address] [place] [address] PCP - General Family Medicine 03/19/23
--- OUTSIDE RECORDS SUMMARY | 2024-09-07 15:11 | XMS_ITS | Encounter Summary ---
Author Organization [employer] Address 75 [facility] 7 [place] [address] Care Team Providers Care Extension Supervisor Name Role Phone Lynda Wade NP Primary Care Provider [phone] Reason for Referral * Imaging (Routine) - Closed Specialty Diagnoses / Procedures Referred By Oliver valerio Referred To Contact Radiology Diagnoses Breast cancer screening by mammogram Procedures BI Mammogram Screening Bilateral Lynda Wade NP [address] [place] [address] Phone: tel: fax: Referral ID Status Reason Start Date Expiration Date Visits Re quested Visits Authorized [id number] Closed 08/05/2023 08/04/2024 1 1 Encounter Details Date Type Department Care Team ([facility] Contact Info) Description 08/05/2023 Orders Only [facility] [address] [place] [phone] Lynda Wade NP [address] [place] [address] Breast cancer screening by mammogram Social History [...] the past 12 months, has t he [employer], gas, oil or water company threatened to [...] documented as of this encounter Care Teams Extension Supervisor Relationship Specialty Start Date End Date Lynda Wade NP [address] [place] [address] PCP - General Family Medicine 03/19/23 documented as of this encounter
--- OUTSIDE RECORDS SUMMARY | 2024-09-07 15:11 | XMS_ITS | Encounter Summary ---
Author Organization [employer] Address 75 [facility] 7t [place] [address] Care Team Providers Care Flue Lining Dipper Name Role Phone Darian Jordanssigned Primary Care Provider Jacobo Cox Primary Care Provider Lynda Pereira NP Primary Care Provider [phone] Reason for Visit * Reason Comments Med Refill Encounter Details Date Type Department Care Team ([facility] st Contact Info) Description 11/15/2022 Refill [facility] [address] [facility] [address] [place] [address] Inge Benedict FNP [address] [place] [address] Major depressive disorder, remission status unspecified, unspecified [...] metabolism documented in this encounter Care Teams Flue Lining Dipper Relationship Specialty Start Date End Date Darian Jordan PCP - General Family Medicine 08/14/22 12/16/22 Jacobo Bartlett FNP PCP - General Family Medicine 12/17/22 03/18/23 Lynda Wade NP [address] [place] [address] PCP - General Family Medicine 03/19/23 documented as of this encounter
--- OUTSIDE RECORDS SUMMARY | 2024-09-07 15:11 | XMS_ITS | Encounter Summary ---
Author Organization [employer] Address [address] [facility] 7 [place] [address] Care Team Providers Care Plumbing And Heating Mechanic Name Role Phone Millie Ponce ASSOCIATE PROFESSOR OF PHILOSOPHY Unavailable [phone] Yolette Murray Primary Care Provider Unavail able Darian Jordan Primary Care Provider U Jacobo Mclean Primary Care Provider Unavaila Lynda Kramer NP Primary Care Provider Encounter Details Date Type Department Care Team ([facility] Contact Info) Description 04/30/2022 Orders Only [facility] [address] [place] [id number] Yolette Murray FNP Vertebrogenic low back pain [...] pain documented in this encounter Care Teams Plumbing And Heating Mechanic Relationship Specialty Start Date End Date Yolette Murray FNP [address] [place] [address] PCP - General Family Medicine 03/29/22 08/13/22 Darian Jordanssaquiles PCP - General Family Medicine 08/14/22 12/16/22 Jacobo Bartlett FNP PCP - General Family Medicine 12/17/22 03/18/23 Lynda Wade NP [address] [place] [address] PCP - General Family Medicine 03/19/23 Millie Ponce FNP [address] [place] [id number] Family Medicine 03/09/22 08/13/22 documented as of this encounter
== END 2024-09-07 13:20 | disposition home or self-care (01) ==
LOC: HO.PMC 12:49
PROVIDERS: PCP Family Medicine; Visit Provider Anesthesiology
DX: M16.12 Unilateral primary osteoarthritis, left hip (principal); M25.552 Pain in left hip; G89.4 Chronic pain syndrome
CPT/HCPCS: 99213

== ENCOUNTER → 2024-09-07 12:49 | Outpatient (BNVA) | payer MEDICARE, MEDICAID, SELFPAY | PROVIDERS: PCP Family Medicine; Visit Provider Anesthesiology | DX: M16.12 Unilateral primary osteoarthritis, left hip (principal); G89.4 Chronic pain syndrome | CPT/HCPCS: 99212 ==

== ENCOUNTER 2024-12-04 12:03 | Outpatient (AMB) | payer MEDICARE, MEDICAID, SELFPAY ==
--- OUTSIDE RECORDS SUMMARY | 2024-12-04 12:04 | XMS_ITS | Clinical Summary ---
Author Organization [employer] Address [address] [facility] 7t [place] [address] Care Team Providers Care Sandwich Peddler Name Role Phone Lynda Wade NP Primary Care Provider [phone] Dominick Cueto MD Unavailable [phone] Sun Crowe MD Unavailable Daniel Guzmán MD Unavailable Saúl Guerra Unavailable Rell Albarran MD Unavailable [phone] Allergies Active Allergy Reactions Criticality Noted Date [...] to 4 times daily. 09/01/19 22 Active lactase (Lactaid) 3000 units tablet Take 1 tablet (3,000 Units) by mouth with breakfast, with lunch, and with evening meal. 90 tablet 11 05/07/20 23 Active atorvastatin (Lipitor) 10 MG tabletIndicatio ns:Elevated lipoprotein(a) Take 1 tablet (10 mg) by mouth in the morning. 90 tablet 3 11/12/19 24 Active ketoconazole (NIZOral) 2 % shampoo SHAMPOO TWICE WEEKLY TO SCALP FOR SCALY RASH, LEAVE ON FOR 10 MINUTES THEN RINSE 07/17/19 24 Active naproxen (Naprosyn) 500 MG tabletIndicatio ns:Acute pain of right knee,Pain and swelling of right knee,Knee mass, right Take 1 tablet (500 mg) by mouth 2 times daily. 30 tablet 12/03/19 24 Active Additional Information Patient not taking.Reported on 11/26/2024 escitalopram (Lexapro) 10 MG tabletIndicatio ns:Depression, unspecified depression type Take 1 tablet (10 mg) by mouth Once per day. 30 tablet 11 03/12/20 24 025 Active omeprazole (PriLOSEC) [address] capsule TAKE TWO CAPSULES BY MOUTH EVERY DAY BEFORE BREAKFAST 180 capsule 08/04/19 25 Active gabapentin (Neurontin) 300 MG capsuleIndicati ons:Lumbar spondylosis,Res tless leg TAKE ONE CAPSULE (300MG) BY MOUTH IN THE MORNING AND TAKE TWO CAPSULES (600MG) IN THE EVENING 90 capsule 3 10/27/19 25 Active fluorouracil (Efudex) 5 % cream APPLY TO IMPACTED AREAS TWICE DAILY FOR UP TO 4 WEEKS 02/03/20 22 025 Discontinued fluocinonide (Lidex) 0.05 % external solution APPLY TWICE A DAY TO SCALP UP TO 2 WEEKS NEEDED FOR FLARES 07/18/19 025 Discontinued Active Problems Problem Noted Date Diagnosed Date Peripheral polyneuropathy 11/26/2024 Assessment & Plan (11/26/2024 3:15 PM EDT): - Nerve pain in feet, possibly related to circulation issues. Current gabapentin dose may not be sufficient. - Order EMG to assess nerve function. Maintain current gabapentin dose. Consider increasing dose if not causing drowsiness or dry mouth. - Risks and side effects: Potential risk of falls with increased gabapentin dose. Orders: EMG; Future Varicose veins of both lower extremities with pa in 11/26/2024 Assessment & Plan (11/26/2024 3:15 PM EDT): - Varicose veins may contribute to leg pain. - Order bilateral ultrasound of lower extremities to assess venous and arterial circulation. - Circulation issues may be affecting nerve health. - Order bilateral ultrasound of lower extremities to assess venous and arterial circulation. Orders: VASC US Lower Extremity Arterial Duplex Bilateral; Future Vascular US lower extremity venous duplex bilateral; Future PVD (peripheral vascular disease) 11/26/2024 Assessment & Plan (11/26/2024 3:15 PM EDT): - Varicose veins may contribute to leg pain. - Order bilateral ultrasound of lower extremities to assess venous and arterial circulation. - Circulation issues may be affecting nerve health. - Order bilateral ultrasound of lower extremities to assess venous and arterial circulation. Orders: VASC US Lower Extremity Arterial Duplex Bilateral; Future Vascular US lower extremity venous duplex bilateral; Future Left hip pain 11/26/2024 Assessment & Plan (11/26/2024 3:15 PM EDT): - Hip pain possibly related to arthritis, not severe enough for surgery per Networking Specialist. - Referral to orthopedics for further evaluation. Orders: Referral to Orthopaedics; Future Keratosis 11/26/2024 Assessment & Plan (11/26/2024 3:15 PM EDT): - Keratosis noted, previously treated with fluorouracil cream. - Referral to dermatology for further management. Orders: Referral to Dermatology; Future Chronic right shoulder pain 02/14/2024 Assessment & [...] significa nce) 02/14/2024 Overview (02/14/2024): Follows with [facility], stable, follow up every 6 [...] AM EST): Following with [facility] in [place] No acute concerns today Pain of thigh 07/15/2019 Esophageal reflux 06/11/2019 Assessment & Plan (11/13/2023 10:43 AM EDT): Continue PPI Encouraged stress reduction practice, minimizing irritating foods Assessment & Plan (05/07/2023 10:54 AM EST): On correction PPI, discussed risks and benefits, encouraged to [...] Following with [facility] In remission Assessment & Plan [...] EST): Now following with Dr. Martin in [place]. Encouraged to continue with care per Rheum Assessment & Plan (04/19/2022 12:54 PM EST): You request referral to be placed to Rheumatology at [facility] Encounters Date Type Department Care Team Description 11/26/2024 10:40 AM EDT Office Visit [address] [phone] Lynda Wade NP Peripheral polyneuropathy (Primary Dx); Varicose veins of both lower extremities with pain; PVD (peripheral vascular disease) (CMS/HCC); Left hip pain; Keratosis 11/11/2024 11:00 AM EDT Clinical Support [address] [phone] Vellucci, Bartolo, RN Routine general medical examination at health care facility (Primary Dx); Screening mammogram for breast cancer; At risk for falling 10/27/[address] [phone] Lynda Wade NP 10/24/[address] [phone] Lynda Wade NP Lumbar spondylosis; Restless leg from Last 3 Months Immunizations Immunization Administration Dates Next Due Influenza High-dose Quadriva [...] Years Used Date Smoking Tobacco: Former Cigarettes 1 29 1 964 - 1992 Passive Smoke Exposure: Past Smokeless Tobacco: Never Tobacco Cessation:Counseling Given: Not Answered Alcohol Use Standard Drinks/Week Comments Not Currently 7 (1 standard drink = 0.6 oz pur e alcohol) 1 beer / day Alcohol Answer Date Recorded How often do [...] housing situation today? I have jamila keller 11/26/[address] you li ve. Do you have problems with any of the following? None of the above 11/26/2024 Food Insecurity Answer Date Recorded Within the past 12 months, y ou worried that your food would run out before you got money to buy more: Never True 11/26/2024 Within the past 12 months,th e food you bought just didn't last and you didn't have enough money to get more: Never True Transportation Answer Date Recorded In the past 12 months, has l ack of transportation kept you from medical appts, meetings, work or from getting things needed for daily living? No 11/26/2024 Intimate Partner Violence Answer Date R ecorded [...] shut off services in your home? No 11/26/2024 Depression Answer Date Recorded Patient Health Questionnaire-2 Score 2 11/11/2024 Internet Access Answer Date Recorded Internet Access [...] Sign Reading Time Taken Comments Blood Pressure 134/74 11/26/2024 10:45 AM EDT Pulse 76 11/26/2024 10:45 AM EDT Temperature 36.2 C (97.2 F) 02/14/2024 9:10 AM EDT Respiratory Rate 16 11/11/2024 11:08 AM EDT Oxygen Saturation 98% 11/26/2024 10:45 AM EDT Inhaled Oxygen Concentration - - Weight 69.6 kg (153 lb 6.4 oz) 11/26/2024 10:45 AM EDT Height 158.8 cm (5' 2.5 ) 11/12/2023 2:13 PM EDT Body Mass Index 27.61 11/12/2023 2:13 PM EDT Plan of Treatment Upcoming Encounters Date Type Department Care Team (Late st Contact Info) Description 01/28/2025 1:40 PM EDT Office Visit [facility] [address] [place] [phone] Lynda Wade NP [address] [place] [address] Health Maintenance Due Date Last Done Comments CT Colonography 1950 FIT DNA/Cologuard 1950 FIT 1950 FOBT 1950 Sigmoidoscopy 1950 Mammogram 11/11/2023 11/10/2021, 04/12, 01/21/2018 COVID-19 Vaccine ( season) 2024 03/14/2023, 07/16/2022, 04/03/2021, Additional history exists Tobacco Screening 12/02/2024 12/03/2023 Influenza Vaccine (#1) 2025 , 02/13/2023, 03/05/2022, Additional history exists Postponed from 01/11/2025 (Other Patient Reasons) Alcohol/Substance Use Screening 11/11/2025 11/11/2024 Depression Screening 11/11/2025 11/11/2024, 05/07/20 SDOH Screening 11/26/2025 11/26/2024 Colonoscopy 02/21/2031 02/21/2021 Colorectal Cancer Screening 02/21/2031 [...] patient's age to complete this topic Meningococcal B Vaccine Aged Out No l onger eligible based on patient's age to complete [...] Most Recently Relevant to Health Maintenance Insurance [address] [place] [address] [place] [address] [place] [phone] [facility] * Guarantor: Magali Weir Account Type Relation to Patient Date of Phone Billing Address Dental Self Care Teams Sandwich Peddler Relationship Specialty Start Date End Date Lynda Wade NP [address] [place] [address] PCP - General Family Medicine 03/19/23 Dominick Cueto MD [address] [place] [phone] Hematology and Oncology 11/11/24 Sun Crowe MD [address] [place] [address] [address] [place] [address] Rheumatology 11/11/24 Daniel Guzmán MD [address] [address] Pulmonary Disease 11/11/24 Saúl Guerra [address] [address] Urology 11/11/24 Rell Albarran MD [address] [place] [address] [address] [place] [address] Ophthalmology 11/11/24
--- OUTSIDE RECORDS SUMMARY | 2024-12-04 12:04 | XMS_ITS | Encounter Summary ---
Author Organization [facility] Address [address] [place] [phone] Phone Care Team Providers Care Watch Technician Name Role Phone Gila Caputo MD Primary Care Provider Millie DiaP Primary Care Provider [phone] Lynda Wade PRINTING MACHINE OPERATOR TAPE RULES Primary Care Provider [phone] Reason for Referral * MRI/CAT Scan - Closed Specialty Diagnoses / Procedures Referred By Oliver valerio Referred To Contact Radiology Diagnoses Pneumonia, interstitial Procedures CT Chest Cachorro Patel MD Phone: tel: fax: [email or web address] Referral ID Status Reason Start Date Expiration Date Visits Re quested Visits Authorized [id number] Closed 12/09/2020 12/09/2021 1 1 Encounter Details Date Type Department Care Team (Latest Contact Info) Description 12/09/2020 Transcribe Orders Virtual Department [address] [place] [address] Cachorro Patel MD [address] [place] [id number] [email or web address] Pneumonia, interstitial (Primary Dx) Social History Tobacco Use Types Packs/Day Years Used Date Smoking Tobacco: Never Smokeless Tobacco: Never Alcohol Use Standard Drinks/Week Comments Not Currently 0 (1 standard drink = 0.6 oz pur e alcohol) Comments Unknown Sex and Gender Information Value Date Recorded Sex Assigned at Not on file Legal Sex Female 10:36 PM EDT Gender Identity Not on file Sexual Orientation Not on file documented as of this encounter Plan of Treatment Not on file documented as of this encounter Results * CT CHEST (HIGH RESOLUTION) WITH CONTRAST (12/27/2020 10:25 AM EDT) Anatomical Region Laterality Modality Chest Computed Tomogra phy 12/27/2020 10:4 9 AM EDT Impressions 12/27/2020 10:58 AM EDT 1. No evidence of interstitial lung disease. 2. Borderline lower lobe bronchiectasis and a few linear bands of scarring, but no acute pulmonary pathology. 3. Fluid-filled, borderline dilated esophagus suspicious for achalasia which may place the patient at risk for aspiration (possibly accounting for lower lobe scarring). POS - [id number] Narrative 12/27/2020 10:58 AM EDT Contrast enhanced exam. No comparison. FINDINGS: Minor dependent atelectasis in both lower lung bang. No evidence of underlying interstitial lung disease. Densely calcified 6 mm anterior right middle lobe and 3 mm lower lingular granulomata. No other/worrisome pulmonary nodules or masses. Borderline cylindrical bronchiectasis in both medial lower lobes. No other bronchial dilatation, wall thickening or filling defects. Linear bands of scarring in the posterior lung bases bilaterally. No evidence of an infectious infiltrate. No pleural or pericardial effusion. Moderate coronary artery calcification. Otherwise the heart and great vessels are unremarkable. Esophagus is borderline dilated and mostly fluid filled which may indicate achalasia. No focal wall thickening suspicious for tumor. No significant adenopathy. No adrenal or thyroid pathology. No acute or worrisome bony abnormalities. Procedure Note Jeramy Castanon MD - 12/27/2020 Contrast enhanced exam. No comparison. FINDINGS: Minor dependent atelectasis in both lower lung bang. No evidence ofunderlying interstitial lung disease. Densely calcified 6 mm anterior right middle lobe and 3 mm lower lingulargranulomata. No other/worrisome pulmonary nodules or masses. Borderline cylindrical bronchiectasis in both medial lower lobes. No otherbronchial dilatation, wall thickening or filling defects. Linear bands of scarring in the posterior lung bases bilaterally. No evidence of an infectious infiltrate. No pleural or pericardial effusion. Moderate coronary artery calcification. Otherwise the heart and greatvessels are unremarkable. Esophagus is borderline dilated and mostly fluid filled which may indicateachalasia. No focal wall thickening suspicious for tumor. No significant adenopathy. No adrenal or thyroid pathology. No acute or worrisome bony abnormalities. IMPRESSION: 1. No evidence of interstitial lung disease. 2. Borderline lower lobe bronchiectasis and a few linear bands ofscarring, but no acute pulmonary pathology. 3. Fluid-filled, borderline dilated esophagus suspicious for achalasiawhich may place the patient at risk for aspiration (possibly accountingfor lower lobe scarring). POS - [id number] Cachorro Patel MD IMG CT CHEST Final Result documented in this encounter Visit Diagnoses Diagnosis Pneumonia, interstitial- Primary Other specified alveolar and parietoalveolar pneumonopathies Pneumonia, interstitial Other specified alveolar and parietoalveolar pneumonopathies documented in this encounter Care Teams Watch Technician Relationship Specialty Start Date End Date Gila Caputo MD [address] [place] [address] PCP - General Emergency Medicine 08/02/20 05/23/22 Millie Ponce FNP [address] [place] [id number] PCP - General 05/24/22 08/12/23 Lynda Wade NP [address] [place] [id number] PCP - General Nurse Practitioner 08/13/23 documented as of this encounter Additional Source Comments The information contained in this document represents components of the legal health record. It is not the complete legal health record.[facility]
--- OUTSIDE RECORDS SUMMARY | 2024-12-04 12:05 | XMS_ITS | Data Portability ---
Demographics Address [address] [place] [address] Home Phone Mobile Phone Preferred Language en Marital Status Unknown Taoism Affiliation Unknown Race White Ethnic Group Not or Lati no Author Organization [facility], , [facility] Address [address] [place] [address] Care Team Providers Care Front Office Representative Name Role Phone ISHAAN ROJAS Primary Care Provider [phone] IVANIA PASCUAL Director Of Critical Care Assessment Encounter Date Assessment Date Assessment LastModified by Organization Details LastModified Time 10/19/2019 10/19/2019 phone vist 22 min Not available 10/19/2019 08:37:01 08/02/2020 08/02/2020 Phone visit 18 min Not available 08/02/2020 08:36:04 Plan of Treatment Reminders Order Date Submit Date Provider Last Modified By Organization Details Last Modified Time Details Appointments None recorded. Lab iron + total iron-bindin g capacity (TIBC), serum 2021 [facility], [address] [place] [address], [id number], 09:42:33 ferritin, serum or plasma 2021 [facility], [address] [place] [address], [address], 15:31:41 vitamin B12, serum 2021 [facility], [address] [place] [address], [address], 14:19:33 folate, serum 2021 [facility], [address] [place] [address], [address], 14:19:34 TSH, serum or plasma 2021 [facility], [address] [place] [address], [address], 15:51:35 T4, free, serum 2021 [facility], [address] [place] [address], [address], 15:31:40 CBC 2021 [facility], [address] [place] [address], [address], 15:02:19 CMP, serum or plasma 2021 [facility], [address] [place] [address], [address], 11:24:01 C-reactive protein, quantitativ e, serum or plasma 2021 [facility], [address] [place] [address], [address], 12:46:30 CBC 2021 [facility], [address] [place] [address], [address], 09:36:59 erythrocyte sedimentati on rate by westergren method 2021 [facility], [address] [place] [address], [address], 10:28:00 urinalysis, dipstick, auto 2021 [facility], [address] [place] [address], [address], 10:52:11 C-reactive protein, quantitativ e, serum or plasma 2020 [facility] (Centralized Electronic Ordering - All Locations), Patient Can Go To The Location Of Their Choice, 20:48:50 ccp (cyclic citrullinat ed peptide) igg, serum 2020 [facility] (Centralized Electronic Ordering - All Locations), Patient Can Go To The Location Of Their Choice, 00:06:09 rf (rheumatoid factor), serum 2020 [facility] (Centralized Electronic Ordering - All Locations), Patient Can Go To The Location Of Their Choice, 20:48:51 ESR (erythrocyt e sedimentati on rate), blood 2020 [facility] (Centralized Electronic Ordering - All Locations), Patient Can Go To The Location Of Their Choice, 17:06:53 C3 (complement ), serum or plasma 2020 [facility] (Centralized Electronic Ordering - All Locations), Patient Can Go To The Location Of Their Choice, 20:48:44 C4 (complement ), serum or plasma 2020 [facility] (Centralized Electronic Ordering - All Locations), Patient Can Go To The Location Of Their Choice, 20:48:46 CMP, serum or plasma 2020 [facility] (Centralized Electronic Ordering - All Locations), Patient Can Go To The Location Of Their Choice, 20:48:48 CBC w/ auto diff 2020 [facility] (Centralized Electronic Ordering - All Locations), Patient Can Go To The Location Of Their Choice, 16:53:37 unlisted lab - DNA crithidia with reflex to titer 2020 [facility] (Centralized Electronic Ordering - All Locations), Patient Can Go To The Location Of Their Choice, 18:03:39 chey-1 Ab, serum 2020 [facility] (Centralized Electronic Ordering - All Locations), Patient Can Go To The Location Of Their Choice, 17:55:19 CK (creatine kinase), total, serum 2020 [facility] (Centralized Electronic Ordering - All Locations), Patient Can Go To The Location Of Their Choice, 20:13:14 scleroderma (scl-70) Ab, serum 2020 [facility] (Centralized Electronic Ordering - All Locations), Patient Can Go To The Location Of Their Choice, 17:55:17 FATEMEH (antinuclea r antibodies) screen, serum 2020 [facility] (Centralized Electronic Ordering - All Locations), Patient Can Go To The Location Of Their Choice, 20:06:57 sjogren antibody panel (ssa, ssb, ro, la), serum 2020 [facility] (Centralized Electronic Ordering - All Locations), Patient Can Go To The Location Of Their Choice, 17:55:16 urinalysis, complete 2020 [facility] (Centralized Electronic Ordering - All Locations), Patient Can Go To The Location Of Their Choice, 16:49:08 TSH, serum or plasma 2020 [facility] (Centralized Electronic Ordering - All Locations), Patient Can Go To The Location Of Their Choice, 20:48:53 CBC 2019 [facility], [address] [place] [address], [address], 0 12:36:46 CMP, serum or plasma 2019 [facility], [address] [place] [address], [address], 0 14:39:57 erythrocyte sedimentati on rate by westergren method 2019 020 [facility], [address] [place], [address], 0 16:42:33 C-reactive protein, quantitativ e, serum or plasma 2019 020 [facility], [address] [place], [address], 0 16:42:25 Referral orthopedic referral - Prior Grijalva fx, but ongoing pain many months. ? stress fracture? Some neuropathic component to pain. Had normal NCS at [facility]. Dr Dias thought arthritis . Gabapentin helps some, but has been taking only very low dose. OK to take as much as [address] Phan for an opinion. 2020 021 [facility] Ramone Phan MD, [address] [place], [address], 1 10:32:57 Procedures [facility] echocardiog dionisio (TTE) (PROC) - 5'3 , 146lbs, no pacer shortness of breath, Pulmonary pressure and EF fracture 2021 022 [email or web address] [facility] (Scheduling), [address] [place], [address], 3 14:45:13 Surgeries None recorded. Imaging bone density - Previous [facility] DXA 04/02/192021 022 [facility] (Imaging), [address], [place], [place], [address], 2 13:08:21 US, echocardiog dionisio - exertional dyspnea, CREST syndrome. R/o evidence pulmonary hypertensio n 2020 021 [facility] (Scheduling), [address] [place], [address], 1 15:26:18 XR, hip, unilateral - (no COVID SXS) Needs soon 2019 020 [facility] (Imaging), [address], [place], [address], 0 13:57:52 XR, foot - Prior Grijalva fx, but ongoing pain many months. ? stress fracture? 2019 020 [facility] (Imaging), [address], [place], [address], 0 13:53:43 Medication Orders gabapentin 100 mg capsule 2020 021 [email or web address] 6 [facility], [address] [place] [address], [id number], 3 11:47:30 gabapentin 100 mg capsule 2019 020 [email or web address] 6 [id number], [address] [place], [address], 3 11:47:30 Patient TargetsNo targets recorded. Patient Instructions Encounter Date Encounter Id Patient Instructions Last Modified By Organization Details Last Modified Time 08/02/2020 [id number] complete PFT* - Complete PFTs (includes spirometry, pre- and post-borchodilato r with flow-volume loop, lung volumes, DLCO) No ABG. Dx CREST syndrome, dyspnea eosgood Not available 09/27/2020 15:13:47 Reason for Referral Orthopedic Referral for Pain in left foot Prior Grijalva fx, but ongoing pain many months. ? stress fracture?Some neuropathic component to pain. Had normal NCS at [facility]. Dr Dias thought arthritis . Gabapentin helps some, but has been taking only very low dose. OK to take as much as [address] Phan for an opinion. Referring Physician: Cachorro Patel, Rheumatology, Encounter Date: 08/02/2020 Results Created Date Observation Date Name Description Value Unit Range Abnormal Flag Note LastModifiedBy Organization Detail LastModifiedTime 10/20/19 20 10/20/2019 CBC WBC 3.84 K/ L 3.98-1 0.04 low Not Available [address], [address], 10/20/2019 12:36:46 10/20/1910/20/2019 CBC RBC 3.75 M/ L 3.93-5 .22 low Not Available [address], [address], 10/20/2019 12:36:46 10/20/1910/20/2019 CBC HGB 11.3 g/dL 11.2-1 5.7 Not Available [address], [address], 10/20/2019 12:36:46 10/20/1910/20/2019 CBC HCT 34.2 % 34.1-4 4.9 Not Available [address], [address], 10/20/2019 12:36:46 10/20/1910/20/2019 CBC MCV 91.2 fL 79.4-9 4.8 Not Available [address], [address], 10/20/2019 12:36:46 10/20/1910/20/2019 CBC MCH 30.1 pg 25.6-3 2.2 Not Available [address], [address], 10/20/2019 12:36:46 10/20/1910/20/2019 CBC MCHC 33.0 g/dL 32.2-3 5.5 Not Available [address], [address], 10/20/2019 12:36:46 10/20/1910/20/2019 CBC plt 243 K/ L 182-36 9 Not Available [address], [address], 10/20/2019 12:36:46 10/20/1910/20/2019 CBC MPV 10.1 fL 9.4-12 .3 Not Available [address], [address], 10/20/2019 12:36:46 10/20/1910/20/2019 CBC neut% 53.7 % 34.0-7 1.1 Not Available [address], [address], 10/20/2019 12:36:46 10/20/1910/20/2019 CBC neut# 2.06 1.56-6 .13 Not Available [address], [address], 10/20/2019 12:36:46 10/20/1910/20/2019 CBC lymph % 32.0 % 19.3-5 1.7 Not Available [address], [address], 10/20/2019 12:36:46 10/20/1910/20/2019 CBC lymph # 1.23 K/ L 1.18-3 .74 Not Available [address], [address], 10/20/2019 12:36:46 10/20/1910/20/2019 CBC mono% 9.9 % 4.7-12 .5 Not Available [address], [address], 10/20/2019 12:36:46 10/20/1910/20/2019 CBC mono# 0.38 0.24-0 .56 Not Available [address], [address], 10/20/2019 12:36:46 10/20/1910/20/2019 CBC eo% 3.1 % 0.7-5. 8 Not Available [address], [address], 10/20/2019 12:36:46 10/20/1910/20/2019 CBC eo# 0.12 0.04-0 .36 Not Available [address], [address], 10/20/2019 12:36:46 10/20/19 20 10/20/2019 CBC baso% 1.3 % 0.1-1. 2 high Not Available [address], [address], 10/20/2019 12:36:46 10/20/1910/20/2019 CBC baso# 0.05 0.00-0 .08 Not Available [address], [address], 10/20/2019 12:36:46 10/20/1910/20/2019 CBC RDW-CV 13.3 % 11.7-1 4.4 Not Available [address], [address], 10/20/2019 12:36:46 10/20/1910/20/2019 CBC Ig% 0.000 % 0.000- 1.500 Ig % >0.5 Indic ates possi ble Left Shift Not Available [address], [address], 10/20/2019 12:36:46 10/20/1910/20/2019 CBC Ig# 0.000 0.000- 0.093 Not Available [address], [address], 10/20/2019 12:36:46 10/20/1910/20/2019 CBC NRBC% 0.0 % 0.0-0. 2 Not Available [address], [address], 10/20/2019 12:36:46 10/20/1910/20/2019 CBC NRBC# 0.000 0.000- 0.012 Not Available [address], [address], 10/20/2019 12:36:46 10/20/19 20 10/20/2019 CMP, serum or plasm a glucose 86 mg/dL 70-100 Not Available [address], [address], 10/20/2019 14:39:57 10/20/19 20 10/20/2019 CMP, serum or plasm a BUN 20 mg/dL 7-18 high Not Available [address], [address], 10/20/2019 14:39:57 10/20/19 20 10/20/2019 CMP, serum or plasm a creatinine 0.8 mg/dL 0.8-1. 3 Not Available [address], [address], 10/20/2019 14:39:57 10/20/19 20 10/20/2019 CMP, serum or plasm a B/C 25.0 ratio Not Available [address], [address], 10/20/2019 14:39:57 10/20/19 20 10/20/2019 CMP, serum or plasm a GFR -non 79.7 mL/mi n Recom griselda d GFR by the Natio nal Kidne y Found ation >60 mL/mi n/1.7 3m2 - Magdalena l <60 mL/mi n/1.7 3m2 - Chron ic Kidne y Disea se <15 mL/mi n/1.7 3m2 - Kidne y Failu re Not Available [address], [address], 10/20/2019 14:39:57 10/20/19 20 10/20/2019 CMP, serum or plasm a GFR - if 91.6 mL/mi n For Afric an Ameri can patie nts: Resul ts Multi plied by 1.21 Not Available [address], [address], 10/20/2019 14:39:57 10/20/19 20 10/20/2019 CMP, serum or plasm a sodium 140 mmol/ L 136-14 5 Not Available [address], [address], 10/20/2019 14:39:57 10/20/1910/20/2019 CMP, serum or plasm a potassium 5.1 mmol/ L 3.5-5. 1 Not Available [address], [address], 10/20/2019 14:39:57 10/20/1910/20/2019 CMP, serum or plasm a chloride 103 mmol/ L 96-107 Not Available [address], [address], 10/20/2019 14:39:57 10/20/1910/20/2019 CMP, serum or plasm a anion gap 9.2 5.0-15 .0 Not Available [address], [address]263, 10/20/2019 14:39:57 10/20/1910/20/2019 CMP, serum or plasm a CO2 28 mmol/ L 21-32 Not Available [address], [address], 10/20/2019 14:39:57 10/20/1910/20/2019 CMP, serum or plasm a calcium 9.0 mg/dL 8.5-10 .3 Not Available [address], [address], 10/20/2019 14:39:57 10/20/1910/20/2019 CMP, serum or plasm a total protein 6.7 g/dL 6.4-8. 2 Not Available [address], [address], 10/20/2019 14:39:57 10/20/1910/20/2019 CMP, serum or plasm a albumin 3.9 g/dL 3.4-5. 0 Not Available [address], [address]679, 10/20/2019 14:39:57 10/20/19 20 10/20/2019 CMP, serum or plasm a globulin 2.8 g/dL Not Available [address], [address], 10/20/2019 14:39:57 10/20/19 20 10/20/2019 CMP, serum or plasm a A/G 1.4 ratio 0.8-2. 0 Not Available [address], [address], 10/20/2019 14:39:57 10/20/19 20 10/20/2019 CMP, serum or plasm a total bilirubin 0.40 mg/dL 0.00-1 .00 Not Available [address], [address], 10/20/2019 14:39:57 10/20/19 20 10/20/2019 CMP, serum or plasm a AST 26 U/L 0-37 Not Available [address], [address], 10/20/2019 14:39:57 10/20/1910/20/2019 CMP, serum or plasm a ALT 26 U/L 6-63 Not Available [address], [address], 10/20/2019 14:39:57 10/20/19 20 10/20/2019 CMP, serum or plasm a alk. phos. 51 U/L 50-136 Not Available [address], [address], 10/20/2019 14:39:57 10/20/1910/20/2019 C-shanda ctive prote in, quant itati ve, serum or plasm a C-reactive protein -quant <2.0 mg/L 0.0-9. 0 < Not Available [address], [address], 10/20/2019 16:42:25 10/20/1910/20/2019 eryth rocyt e sedim entat ion rate by alberto resendiz sed rate 7.0 0.0-15 .0 Not Available [address], [address], 10/20/2019 16:42:33 12/10/19 21 12/12/2020 BASIC METAB OLIC PANEL glucose 95 mg/dL 70-100 LIPS= Speci men Sligh tly Lipem ic. Chem Resul ts may be effec amarilis. Not Available [address], [address], 12/12/2020 11:56:04 12/10/19 21 12/12/2020 BASIC METAB OLIC PANEL BUN 22 mg/dL 7-18 high Not Available [address], [address], 12/12/2020 11:56:04 12/10/19 21 12/12/2020 BASIC METAB OLIC PANEL creatinine 1.0 mg/dL 0.8-1. 3 Not Available [address], [address], 12/12/2020 11:56:04 12/10/19 21 12/12/2020 BASIC METAB OLIC PANEL B/C 22.0 ratio Not Available [address], [address], 12/12/2020 11:56:04 12/10/19 21 12/12/2020 BASIC METAB OLIC PANEL GFR -non 61.4 mL/mi n Recom griselda d GFR by the Natio nal Kidne y Found ation >60 mL/mi n/1.7 3m2 - Magdalena l <60 mL/mi n/1.7 3m2 - Chron ic Kidne y Disea se <15 mL/mi n/1.7 3m2 - Kidne y Failu re Not Available [address], [address], 12/12/2020 11:56:04 12/10/19 21 12/12/2020 BASIC METAB OLIC PANEL GFR - if 70.6 mL/mi n For Afric an Ameri can patie nts: Resul ts Multi plied by 1.21 Not Available [address], [address], 12/12/2020 11:56:04 12/10/19 21 12/12/2020 BASIC METAB OLIC PANEL sodium 141 mmol/ L 136-14 5 Not Available [address], [address], 12/12/2020 11:56:04 12/10/19 21 12/12/2020 BASIC METAB OLIC PANEL potassium 4.4 mmol/ L 3.5-5. 1 Not Available [address], [address], 12/12/2020 11:56:04 12/10/19 21 12/12/2020 BASIC METAB OLIC PANEL chloride 106 mmol/ L 96-107 Not Available [address], [address], 12/12/2020 11:56:04 12/10/19 21 12/12/2020 BASIC METAB OLIC PANEL anion gap 8.2 5.0-15 .0 Not Available [address], [address], 12/12/2020 11:56:04 12/10/19 21 12/12/2020 BASIC METAB OLIC PANEL CO2 27 mmol/ L 21-32 Not Available [address], [address], 12/12/2020 11:56:04 12/10/19 21 12/12/2020 BASIC METAB OLIC PANEL calcium 8.5 mg/dL 8.5-10 .3 Not Available [address], [address], 12/12/2020 11:56:04 02/15/20 21 02/14/2021 LAB ONLY URINA LYSIS appear/color YELLO W CLEAR Not Available [facility] (Centralized Electronic Ordering - All Locations) Patient Can Go To The Location Of Their Choice, 02/14/2021 16:49:08 02/15/2002/14/2021 LAB ONLY URINA LYSIS sp. gravity 1.017 (1.002 -1.030 ) Not Available [facility] (Centralized Electronic Ordering - All Locations) Patient Can Go To The Location Of Their Choice, 02/14/2021 16:49:08 02/15/2002/14/2021 LAB ONLY URINA LYSIS urine pH 6.0 (5.0-8 .0) Not Available [facility] (Centralized Electronic Ordering - All Locations) Patient Can Go To The Location Of Their Choice, 02/14/2021 16:49:08 02/15/2002/14/2021 LAB ONLY URINA LYSIS urine albumin NEGATI VE (neg) Not Available [facility] (Centralized Electronic Ordering - All Locations) Patient Can Go To The Location Of Their Choice, 02/14/2021 16:49:08 02/15/2002/14/2021 LAB ONLY URINA LYSIS urine glucose NEGATI VE (neg) Not Available [facility] (Centralized Electronic Ordering - All Locations) Patient Can Go To The Location Of Their Choice, 02/14/2021 16:49:08 02/15/2002/14/2021 LAB ONLY URINA LYSIS urine ketones NEGATI VE (neg) Not Available [facility] (Centralized Electronic Ordering - All Locations) Patient Can Go To The Location Of Their Choice, 02/14/2021 16:49:08 02/15/2002/14/2021 LAB ONLY URINA LYSIS urine bilirubin NEGATI VE (neg) Not Available [facility] (Centralized Electronic Ordering - All Locations) Patient Can Go To The Location Of Their Choice, 02/14/2021 16:49:08 02/15/2002/14/2021 LAB ONLY URINA LYSIS urine hemoglobin NEGATI VE (neg) Not Available [facility] (Centralized Electronic Ordering - All Locations) Patient Can Go To The Location Of Their Choice, 02/14/2021 16:49:08 02/15/2002/14/2021 LAB ONLY URINA LYSIS urine nitrite NEGATI VE (neg) Not Available [facility] (Centralized Electronic Ordering - All Locations) Patient Can Go To The Location Of Their Choice, 02/14/2021 16:49:08 02/15/2002/14/2021 LAB ONLY URINA LYSIS urine leukocyte 1+ (neg) abnormal Not Available [facility] ([facility] - All Locations) Patient Can Go To The Location Of Their Choice, 02/14/2021 16:49:08 02/15/2002/14/2021 LAB ONLY URINA LYSIS urobilinogen NORMAL mg/dL (norm) Not Available [facility] ([facility] - [facility] Locations) Patient Can Go To The Location Of Their Choice, 02/14/2021 16:49:08 02/15/2002/14/2021 LAB ONLY URINA LYSIS urine WBCs 2 /hpf (0-5) Not Available [facility] (Centralized Electronic Ordering - All Locations) Patient Can Go To The Location Of Their Choice, 02/14/2021 16:49:08 02/15/2002/14/2021 LAB ONLY URINA LYSIS urine RBCs 2 /hpf (0-3) Not Available [facility] (Centralized Electronic Ordering - All Locations) Patient Can Go To The Location Of Their Choice, 02/14/2021 16:49:08 02/15/2002/14/2021 LAB ONLY URINA LYSIS mucus SLIGHT /lpf Not Available [facility] (Centralized Electronic Ordering - All Locations) Patient Can Go To The Location Of Their Choice, 02/14/2021 16:49:08 02/15/2002/14/2021 LAB ONLY URINA LYSIS squamous epith <1 /hpf (0-8) Not Available [facility] ([facility] Order[facility] - All Locations) Patient Can Go To The Location Of Their Choice, 02/14/2021 16:49:08 02/15/2002/14/2021 COMPL ETE BLOOD COUNT WBC 3.9 K/mm3 (4.0-1 1.0) low Not Available [facility] (Centralized Electronic Ordering - All Locations) Patient Can Go To The Location Of Their Choice, 02/14/2021 16:53:37 02/15/2002/14/2021 COMPL ETE BLOOD COUNT RBC 3.76 M/mm3 (4.20- 5.40) low Not Available [facility] (Centralized Electronic Ordering - All Locations) Patient Can Go To The Location Of Their Choice, 02/14/2021 16:53:37 02/15/2002/14/2021 COMPL ETE BLOOD COUNT HGB 11.2 gm/dL (11.7- 15.5) low Not Available [facility] (Centralized Electronic Ordering - All Locations) Patient Can Go To The Location Of Their Choice, 02/14/2021 16:53:37 02/15/2002/14/2021 COMPL ETE BLOOD COUNT HCT 35.0 % (35.7- 45.8) low Not Available [facility] (Centralized Electronic Ordering - All Locations) Patient Can Go To The Location Of Their Choice, 02/14/2021 16:53:37 02/15/2002/14/2021 COMPL ETE BLOOD COUNT MCV 93.1 fL (80.0- 100.0) Not Available [facility] (Centralized Electronic Ordering - All Locations) Patient Can Go To The Location Of Their Choice, 02/14/2021 16:53:37 02/15/2002/14/2021 COMPL ETE BLOOD COUNT MCH 29.8 pg (27.0- 34.0) Not Available [facility] (Centralized Electronic Ordering - All Locations) Patient Can Go To The Location Of Their Choice, 02/14/2021 16:53:37 02/15/2002/14/2021 COMPL ETE BLOOD COUNT MCHC 32.0 g/dL (33.0- 37.0) low Not Available [facility] (Centralized Electronic Ordering - All Locations) Patient Can Go To The Location Of Their Choice, 02/14/2021 16:53:37 02/15/2002/14/2021 COMPL ETE BLOOD COUNT plt 246 K/mm3 (150-4 60) Not Available [facility] (Centralized Electronic Ordering - All Locations) Patient Can Go To The Location Of Their Choice, 02/14/2021 16:53:37 02/15/2002/14/2021 COMPL ETE BLOOD COUNT RDW-SD 46.6 fL (<47.0 ) Not Available [facility] ([facility]ized Electronic Ordering - All Locations) Patient Can Go To The Location Of Their Choice, 02/14/2021 16:53:37 02/15/20 21 02/14/2021 COMPL ETE BLOOD COUNT MPV 9.8 fL (9.4-1 2.4) Not Available [facility] (Centralized [facility] Ordering - All Locations) Patient Can Go To The Location Of Their Choice, 02/14/2021 16:53:37 02/15/20 21 02/14/2021 COMPL ETE BLOOD COUNT automated NRBC 0.0 #/100 _WBC' s Not Available [facility] (Centralized Electronic Ordering - All Locations) Patient Can Go To The Location Of Their Choice, 02/14/2021 16:53:37 02/15/2002/14/2021 COMPL ETE BLOOD COUNT abs. NRBC 0.0 K/mm3 Not Available [facility] (Centralized Electronic Ordering - All Locations) Patient Can Go To The Location Of Their Choice, 02/14/2021 16:53:37 02/15/2002/14/2021 SEDIM ENTAT ION RATE, AUTOM ATED sedimentatio n rate,automat ed 4 mm/HR (0-20) In rare patie nts with multi ple myelo ma and other cance rs,Er ythro cyte Sedim entat ion Rate( ESR) by our curre nt metho d(iSE D)can be magdalena l. If clini bernarda relev ant,p lease use C-shanda ctive prote in as an equiv alent measu re of acute phase react ion in these patie nts. Not Available [facility] (Centralized Electronic Ordering - All Locations) Patient Can Go To The Location Of Their Choice, 02/14/2021 17:06:53 02/15/2002/14/2021 CK (CREA JACKIE KINAS E) CK (creatine kinase) 166 U/L (0-190 ) Not Available [facility] (Centralized Electronic Ordering - All Locations) Patient Can Go To The Location Of Their Choice, 02/14/2021 20:13:13 02/15/2002/14/2021 COMPL EMENT C3 complement C3 100 mg/dL (90-18 0) Not Available [facility] (Centralized Electronic Ordering - All Locations) Patient Can Go To The Location Of Their Choice, 02/14/2021 20:48:44 02/15/2002/14/2021 COMPL EMENT C4 complement C4 26 mg/dL (10-40 ) Not Available [facility] (Centralized Electronic Ordering - All Locations) Patient Can Go To The Location Of Their Choice, 02/14/2021 20:48:45 02/15/2002/14/2021 CKMB CONFI RMATI ON/QU ANT CKMB confirmation /quant 3.5 NG/mL (0-6) Not Available [facility] ([facility] Ordering - All Locations) Patient Can Go To The Location Of Their Choice, 02/14/2021 20:48:47 02/15/2002/14/2021 COMPR EHENS MARCELA METAB OLIC PANL glucose 84 mg/dL (70-99 ) Not Available [facility] (Centralized Electronic Ordering - All Locations) Patient Can Go To The Location Of Their Choice, 02/14/2021 20:48:48 02/15/2002/14/2021 COMPR EHENS MARCELA METAB OLIC PANL BUN 18 mg/dL (8-23) Not Available [facility] (Centralized Electronic Ordering - All Locations) Patient Can Go To The Location Of Their Choice, 02/14/2021 20:48:48 02/15/2002/14/2021 COMPR EHENS MARCELA METAB OLIC PANL creatinine 0.9 mg/dL (0.5-1 .0) Not Available [facility] (Centralized Electronic Ordering - All Locations) Patient Can Go To The Location Of Their Choice, 02/14/2021 20:48:48 02/15/2002/14/2021 COMPR EHENS MARCELA METAB OLIC PANL sodium 140 mmol/ L (133-1 45) Not Available [facility] (Centralized Electronic Ordering - All Locations) Patient Can Go To The Location Of Their Choice, 02/14/2021 20:48:48 02/15/2002/14/2021 COMPR EHENS MARCELA METAB OLIC PANL potassium 4.7 mmol/ L (3.6-5 .2) Not Available [facility] (Centralized Electronic Ordering - All Locations) Patient Can Go To The Location Of Their Choice, 02/14/2021 20:48:48 02/15/2002/14/2021 COMPR EHENS MARCELA METAB OLIC PANL chloride 104 mmol/ L (98-10 7) Not Available [facility] (Centralized Electronic Ordering - All Locations) Patient Can Go To The Location Of Their Choice, 02/14/2021 20:48:48 02/15/2002/14/2021 COMPR EHENS MARCELA METAB OLIC PANL bicarbonate 24 mmol/ L (22-29 ) Not Available [facility] (Centralized Electronic Ordering - All Locations) Patient Can Go To The Location Of Their Choice, 02/14/2021 20:48:48 02/15/2002/14/2021 COMPR EHENS MARCELA METAB OLIC PANL anion gap 12 (4-17) Not Available [facility] (Centralized Electronic Ordering - All Locations) Patient Can Go To The Location Of Their Choice, 02/14/2021 20:48:48 02/15/2002/14/2021 COMPR EHENS MARCELA METAB OLIC PANL albumin 4.3 gm/dL (3.4-4 .8) Not Available [facility] (Centralized Electronic Ordering - All Locations) Patient Can Go To The Location Of Their Choice, 02/14/2021 20:48:48 02/15/2002/14/2021 COMPR EHENS MARCELA METAB OLIC PANL calcium 9.4 mg/dL (8.6-1 0.5) Not Available [facility] (Centralized Electronic Ordering - All Locations) Patient Can Go To The Location Of Their Choice, 02/14/2021 20:48:48 02/15/2002/14/2021 COMPR EHENS MARCELA METAB OLIC PANL bilirubin,to bartolome 0.4 mg/dL (0-1.2 ) Not Available [facility] (Centralized Electronic Ordering - All Locations) Patient Can Go To The Location Of Their Choice, 02/14/2021 20:48:48 02/15/2002/14/2021 COMPR EHENS MARCELA METAB OLIC PANL total protein 6.9 gm/dL (6.2-8 .2) Not Available [facility] (Centralized Electronic Ordering - All Locations) Patient Can Go To The Location Of Their Choice, 02/14/2021 20:48:48 02/15/2002/14/2021 COMPR EHENS MARCELA METAB OLIC PANL Ag ratio 1.7 Not Available [facility] (Centralized Electronic Ordering - All Locations) Patient Can Go To The Location Of Their Choice, 02/14/2021 20:48:48 02/15/2002/14/2021 COMPR EHENS MARCELA METAB OLIC PANL AST 23 U/L (0-32) Not Available [facility] (Centralized Electronic Ordering - All Locations) Patient Can Go To The Location Of Their Choice, 02/14/2021 20:48:48 02/15/2002/14/2021 COMPR EHENS MARCELA METAB OLIC PANL alk phos 52 U/L (35-10 4) Not Available [facility] (Centralized Electronic Ordering - All Locations) Patient Can Go To The Location Of Their Choice, 02/14/2021 20:48:48 02/15/2002/14/2021 COMPR EHENS MARCELA METAB OLIC PANL ALT 13 U/L (0-33) Not Available [facility] (Centralized Electronic Ordering - All Locations) Patient Can Go To The Location Of Their Choice, 02/14/2021 20:48:48 02/15/2002/14/2021 COMPR EHENS MARCELA METAB OLIC PANL estimated GFR creatinine 68 mL/mi n/1.7 3_M2 Effec tive 2020, race modif iers will no longe r be inclu ded [facility]-E PI eGFR calcu latio ns. Accor dingl y, eGFR lab repor t descr iptor s (i.e. , EST GFR NON AFRIC AN AMERI CAN, EST GFR AFRIC AN AMERI CAN) will be disco ntinu ed. Pleas e take this into accou nt when utili zing creat inine -base d formu latio ns to diagn ose and manag e chron ic kidne y disea se. [facility] estim ated glome rular filtr ation rate (eGFR ) is calcu lated using the Chron ic Kidne y Disea se Epide miolo gy Colla borat ion (CKD- EPI). The CKD-E PI avery tesfaye n is not valid ated in child angeles (<18 years ), pregn ant woman or in racia l or ethni c subgr oups. Not Available [facility] (Centralized Electronic Ordering - All Locations) Patient Can Go To The Location Of Their Choice, 02/14/2021 20:48:48 02/15/2002/14/2021 C-SHANDA CTIVE PROTE IN C-reactive protein <0.3 mg/dL (0-0.5 ) Not Available [facility] (Centralized Electronic Ordering - All Locations) Patient Can Go To The Location Of Their Choice, 02/14/2021 20:48:50 02/15/2002/14/2021 RHEUM ATOID FACTO R rheumatoid factor <10.0 IU/mL (<14) Not Available [facility] (Centralized [facility] Ordering - All Locations) Patient Can Go To The Location Of Their Choice, 02/14/2021 20:48:51 02/15/2002/14/2021 TSH WITH REFLE X TO FT4 TSH 2.48 uIU/m L (0.4-4 .2) Not Available [facility] (Centralized Electronic Ordering - All Locations) Patient Can Go To The Location Of Their Choice, 02/14/2021 20:48:53 02/15/2002/15/2021 SJOGR ENS ANTIB ODIES anti-ssa (RO) Ab <0.2 Refer ence range : 0.0 to 0.9 Unit: AI Not Available [facility] (Centralized Electronic Ordering - All Locations) Patient Can Go To The Location Of Their Choice, 02/15/2021 17:55:16 02/15/2002/15/2021 SJOGR ENS ANTIB ODIES anti-ssb (la) Ab <0.2 Refer ence range : 0.0 to 0.9 Unit: AI Test perfo rmed by [facility], [address], [place] [address] Not Available [facility] (Centralized Electronic Ordering - All Locations) Patient Can Go To The Location Of Their Choice, 02/15/2021 17:55:16 02/15/2002/15/2021 SCLER ODERM A ANTIB CHAPIN scleroderma antibody <0.2 Refer ence range : 0.0 to 0.9 Unit: AI Test perfo rmed by [facility], [address], [place] [address] Not Available [facility] (Centralized Electronic Ordering - All Locations) Patient Can Go To The Location Of Their Choice, [id number] 02/15/2021 17:55:17 02/15/20 21 02/15/2021 JO1 ANTIB CHAPIN jo1 antibody <0.2 Refer ence range : 0.0 to 0.9 Unit: AI Test perfo rmed by [facility], [address], [place] [address] Not Available [facility] (Centralized Electronic Ordering - All Locations) Patient Can Go To The Location Of Their Choice, 02/15/2021 17:55:19 02/15/2002/15/2021 MJ H MUSCL E AB smooth muscle Ab 13 Refer ence range : 0 to 19 Unit: Units (NOTE ) Negat marcela 0 - 19 Weak posit marcela 20 - 30 Moder ate to stron g posit marcela >30 Actin Antib odies are found in 52-85 % of patie nts with autoi mmune hepat itis or chron ic activ e hepat itis and in 22% of patie nts with prima ry bilia ry cirrh osis. Test perfo rmed by [facility], [address], [place], [place] [address] Not Available [facility] (Centralized Electronic Ordering - All Locations) Patient Can Go To The Location Of Their Choice, [id number] 02/15/2021 17:55:33 02/15/2002/15/2021 ANTI- NUCLE AR ANTIB CHAPIN SCREE N anti-nuclear antibody screen POSITI VE abnormal (NOTE ) Negat marcela <1:80 Borde rline 1:80 Posit amrcela >1:80 Test perfo rmed by [facility], [address], [place] [address] Not Available [facility] (Centralized Electronic Ordering - All Locations) Patient Can Go To The Location Of Their Choice, 02/15/2021 20:06:57 02/15/2002/15/2021 MARU STAIN ING PATTE RNS centromere pattern 1:1280 high (NOTE ) ICAP nomen clatu re: AC-3 Not Available [facility] (Centralized Electronic Ordering - All Locations) Patient Can Go To The Location Of Their Choice, [id number] 02/15/2021 20:07:19 02/15/20 21 02/15/2021 MARU STAIN ING JEREMY RNS note: YESENIA Sam (NOTE ) For more infor angela castillo about Hep-2 cell patte rns use ANApa ttern s.[facility] , the offic iasonya romo te for the Inter natio nal Conse nsus on Antin uclea r Antib chapin (FATEMEH) Jeremy rns (ICA ). ----- ----- ----- ----- ----- ----- ----- ----- ----- ----- ----- ----- A posit marcela FATEMEH resul t may occur in healt hy indiv idual s (low titer ) or be assoc iated with a varie ty of disea ses. See inter preta tion chart which is not all inclu sive: Jeremy rn Antig en Detec amarilis cochran Disea se Assoc iatio n ----- ----- - ----- ----- ----- - ----- ----- ----- ----- ----- ---- Homog eneou s DNA(d s,ss) , SLE - High titer s Nucle osome s, Histo milad Drug- induc ed SLE ----- ----- - ----- ----- ----- - ----- ----- ----- ----- ----- ---- Speck led Sm, STEAMING MACHINE OPERATOR, SCL-7 0, SLE,M CTD,P SS (diff use form) , SS-A/ SS-B Sjogr ens ----- ----- - ----- ----- ----- - ----- ----- ----- ----- ----- ---- Nucle olar SCL-7 0, PM-1/ SCL High titer s Scler oderm a, PM/DM ----- ----- - ----- ----- ----- - ----- ----- ----- ----- ----- ---- Centr omere Centr omere PSS (limi amarilis form) w/Cre st syndr ome varia ble ----- ----- - ----- ----- ----- - ----- ----- ----- ----- ----- ---- Nucle ar Dot Sp100 ,p80- coili n Prima ry Bilia ry Cirrh osis ----- ----- - ----- ----- ----- - ----- ----- ----- ----- ----- ---- Nucle ar GP210 , Prima ry Bilia ry Cirrh osis Membr ane kenny A,B,C ----- ----- - ----- ----- ----- - ----- ----- ----- ----- ----- ---- Test perfo rmed by [facility] , [address], [place] [address] Not Available [facility] (Centralized Electronic Ordering - All Locations) Patient Can Go To The Location Of Their Choice, [id number] 02/15/2021 20:07:19 02/15/2002/16/2021 VAUGHNU LLADALGISA GUERRIERI DE ANTIB CHAPIN ccp antibody 7 Refer ence range : 0 to 19 Unit: units (NOTE ) Negat marcela <20 Weak posit marcela 20 - 39 Moder ate posit marcela 40 - 59 Stron g posit marcela >59 Test perfo rmed at [facility] [place] , [address] [place] [address] , [place] [address] Not Available [facility] (Centralized Electronic Ordering - All Locations) Patient Can Go To The Location Of Their Choice, [id number] 02/16/2021 00:06:09 02/15/20 21 02/21/2021 DNA CRITH IDIA W/RFL X TITER DNA Ab (ds) crithidia, ifa NEGATI VE Refer ence range : NEGAT MARCELA Not Available [facility] (Centralized Electronic Ordering - All Locations) Patient Can Go To The Location Of Their Choice, [id number] 02/21/2021 18:03:39 02/07/20 22 02/06/2022 CBC WBC 4.52 K/ L 3.98-1 0.04 Not Available [address], [address], 02/06/2022 09:36:59 02/07/20 22 02/06/2022 CBC RBC 3.64 M/ L 3.93-5 .22 low Not Available [address], [address], 02/06/2022 09:36:59 02/07/20 22 02/06/2022 CBC HGB 10.8 g/dL 11.2-1 5.7 low Not Available [address], [address], 02/06/2022 09:36:59 02/07/20 22 02/06/2022 CBC HCT 32.8 % 34.1-4 4.9 low Not Available [address], [address], 02/06/2022 09:36:59 02/07/20 22 02/06/2022 CBC MCV 90.1 fL 79.4-9 4.8 Not Available [address], [address], 02/06/2022 09:36:59 02/07/20 22 02/06/2022 CBC MCH 29.7 pg 25.6-3 2.2 Not Available [address], [address], 02/06/2022 09:36:59 02/07/20 22 02/06/2022 CBC MCHC 32.9 g/dL 32.2-3 5.5 Not Available [address], [address], 02/06/2022 09:36:59 02/07/2002/06/2022 CBC plt 276 K/ L 182-36 9 Not Available [address], [address], 02/06/2022 09:36:59 02/07/2002/06/2022 CBC MPV 9.5 fL 9.4-12 .3 Not Available [address], [address], 02/06/2022 09:36:59 02/07/2002/06/2022 CBC neut% 51.0 % 34.0-7 1.1 Not Available [address], [address], 02/06/2022 09:36:59 02/07/2002/06/2022 CBC neut# 2.31 1.56-6 .13 Not Available [address], [address], 02/06/2022 09:36:59 02/07/2002/06/2022 CBC lymph % 35.0 % 19.3-5 1.7 Not Available [address], [address], 02/06/2022 09:36:59 02/07/2002/06/2022 CBC lymph # 1.58 K/ L 1.18-3 .74 Not Available [address], [address], 02/06/2022 09:36:59 02/07/2002/06/2022 CBC mono% 8.0 % 4.7-12 .5 Not Available [address], [address], 02/06/2022 09:36:59 02/07/2002/06/2022 CBC mono# 0.36 0.24-0 .56 Not Available [address], [address], 02/06/2022 09:36:59 02/07/20 22 02/06/2022 CBC eo% 4.0 % 0.7-5. 8 Not Available [address], [address], 02/06/2022 09:36:59 02/07/20 22 02/06/2022 CBC eo# 0.18 0.04-0 .36 Not Available [address], [address], 02/06/2022 09:36:59 02/07/20 22 02/06/2022 CBC baso% 1.8 % 0.1-1. 2 high Not Available [address], [address], 02/06/2022 09:36:59 02/07/20 22 02/06/2022 CBC baso# 0.08 0.00-0 .08 Not Available [address], [address], 02/06/2022 09:36:59 02/07/20 22 02/06/2022 CBC RDW-CV 14.1 % 11.7-1 4.4 Not Available [address], [address], 02/06/2022 09:36:59 02/07/20 22 02/06/2022 CBC Ig% 0.200 % 0.000- 1.500 Ig % >0.5 Indic ates possi ble Left Shift Not Available [address], [address], 02/06/2022 09:36:59 02/07/20 22 02/06/2022 CBC Ig# 0.010 0.000- 0.093 Not Available [address], [address], 02/06/2022 09:36:59 02/07/20 22 02/06/2022 CBC NRBC% 0.0 % 0.0-0. 2 Not Available [address], [address], 02/06/2022 09:36:59 02/07/20 22 02/06/2022 CBC NRBC# 0.000 0.000- 0.012 Not Available [address], [address], 02/06/2022 09:36:59 02/07/20 22 02/06/2022 ESR sed rate 15.0 0.0-15 .0 Not Available [address], [address], 02/06/2022 10:28:00 02/07/20 22 02/06/2022 COMP. METAB OLIC PANEL glucose 83 mg/dL 70-100 Not Available [address], [address], 02/06/2022 11:24:01 02/07/20 22 02/06/2022 COMP. METAB OLIC PANEL BUN 21 mg/dL 7-18 high Not Available [address], [address], 02/06/2022 11:24:01 02/07/20 22 02/06/2022 COMP. METAB OLIC PANEL creatinine 1.0 mg/dL 0.8-1. 3 Not Available [address], [address], 02/06/2022 11:24:01 02/07/20 22 02/06/2022 COMP. METAB OLIC PANEL B/C 21.0 ratio Not Available [address], [address], 02/06/2022 11:24:01 02/07/20 22 02/06/2022 COMP. METAB OLIC PANEL GFR >=60ML /MIN mL/mi n normal >=60m L/min - Magdalena l or midly reduc ed <60mL /min- Decre ased kidne y funct ion <15mL /min - Kidne y failu re [facility] calcu lates estim ated Glome rular Filtr ation Rate (eGFR ) using the Chron ic Kidne y Disea se Epide miolo gy Colla borat ion (CKD- EPI) Equat ion (Inke r et. al 2020) as recom griselda d by the Natio nal Kidne y Found ation . eGFR is based on age, serum creat inine , and sex. CKD-E PI does not calcu late eGFR by race, does not apply to child angeles (age <18 years ), and shoul d not be used in pregn cristino. Not Available [address], [address], 02/06/2022 11:24:01 02/07/20 22 02/06/2022 COMP. METAB OLIC PANEL sodium 140 mmol/ L 136-14 5 Not Available [address], [address], 02/06/2022 11:24:01 02/07/20 22 02/06/2022 COMP. METAB OLIC PANEL potassium 5.0 mmol/ L 3.5-5. 1 Not Available [address], [address], 02/06/2022 11:24:01 02/07/20 22 02/06/2022 COMP. METAB OLIC PANEL chloride 104 mmol/ L 96-107 Not Available [address], [address], 02/06/2022 11:24:01 02/07/20 22 02/06/2022 COMP. METAB OLIC PANEL anion gap 6.4 5.0-15 .0 Not Available [address], [address], 02/06/2022 11:24:01 02/07/20 22 02/06/2022 COMP. METAB OLIC PANEL CO2 30 mmol/ L 21-32 Not Available [address], [address], 02/06/2022 11:24:01 02/07/20 22 02/06/2022 COMP. METAB OLIC PANEL calcium 8.9 mg/dL 8.5-10 .3 Not Available [address], [address], 02/06/2022 11:24:01 02/07/20 22 02/06/2022 COMP. METAB OLIC PANEL total protein 7.0 g/dL 6.4-8. 2 Not Available [address], [address], 02/06/2022 11:24:01 02/07/20 22 02/06/2022 COMP. METAB OLIC PANEL albumin 3.8 g/dL 3.4-5. 0 Not Available [address], [address], 02/06/2022 11:24:01 02/07/20 22 02/06/2022 COMP. METAB OLIC PANEL globulin 3.2 g/dL Not Available [address], [address], 02/06/2022 11:24:01 02/07/20 22 02/06/2022 COMP. METAB OLIC PANEL A/G 1.2 ratio 0.8-2. 0 Not Available [address], [address], 02/06/2022 11:24:01 02/07/20 22 02/06/2022 COMP. METAB OLIC PANEL total bilirubin 0.50 mg/dL 0.00-1 .00 Not Available [address], [address], 02/06/2022 11:24:01 02/07/20 22 02/06/2022 COMP. METAB OLIC PANEL AST 22 U/L 0-37 Not Available [address], [address], 02/06/2022 11:24:01 02/07/20 22 02/06/2022 COMP. METAB OLIC PANEL ALT 23 U/L 6-63 Not Available [address], [address], 02/06/2022 11:24:01 02/07/20 22 02/06/2022 COMP. METAB OLIC PANEL alk. phos. 47 U/L 50-136 low Not Available [address], [address], 02/06/2022 11:24:01 02/07/20 22 02/06/2022 C-SHANDA CTIVE PROTE IN-QU ANTIT ATIVE C-reactive protein -quant <2.0 mg/L 0.0-9. 0 < crp verif ied, cmd Not Available [address], [address], 02/06/2022 12:46:30 02/08/20 22 02/07/2022 URINA LYSIS color YELLOW yellow Not Available [address], [address], 02/07/2022 10:52:10 02/08/20 22 02/07/2022 URINA LYSIS clarity CLEAR clear Not Available [address], [address], 02/07/2022 10:52:10 02/08/20 22 02/07/2022 URINA LYSIS glucose NEGATI VE negati ve Not Available [address], [address], 02/07/2022 10:52:10 02/08/20 22 02/07/2022 URINA LYSIS bilirubin NEGATI VE negati ve Not Available [address], [address], 02/07/2022 10:52:10 02/08/20 22 02/07/2022 URINA LYSIS ketones NEGATI VE negati ve Not Available [address], [address], 02/07/2022 10:52:10 02/08/20 22 02/07/2022 URINA LYSIS specific gravity 1.020 1.001- 1.035 Not Available [address], [address], 02/07/2022 10:52:10 02/08/20 22 02/07/2022 URINA LYSIS pH 6.0 5.0-8. 0 Not Available [address], [address], 02/07/2022 10:52:10 02/08/20 22 02/07/2022 URINA LYSIS protein NEGATI VE negati ve Not Available [address], [address], 02/07/2022 10:52:10 02/08/20 22 02/07/2022 URINA LYSIS urobilinogen 0.2 E.U./D L <1.0 Not Available [address], [address], 02/07/2022 10:52:10 02/08/20 22 02/07/2022 URINA LYSIS nitrates NEGATI VE negati ve Not Available [address], [address], 02/07/2022 10:52:10 02/08/20 22 02/07/2022 URINA LYSIS blood NEGATI VE negati ve Not Available [address], [address], 02/07/2022 10:52:10 02/08/20 22 02/07/2022 URINA LYSIS leukocytes NEGATI VE negati ve Not Available [address], [address], 02/07/2022 10:52:10 02/14/20 22 02/13/2022 CBC WBC 6.45 K/ L 3.98-1 0.04 Not Available [address], [address], 02/13/2022 15:02:19 02/14/20 22 02/13/2022 CBC RBC 3.50 M/ L 3.93-5 .22 low Not Available [address], [address], 02/13/2022 15:02:19 02/14/20 22 02/13/2022 CBC HGB 10.5 g/dL 11.2-1 5.7 low Not Available [address], [address], 02/13/2022 15:02:19 02/14/20 22 02/13/2022 CBC HCT 31.9 % 34.1-4 4.9 low Not Available [address], [address], 02/13/2022 15:02:19 02/14/20 22 02/13/2022 CBC MCV 91.1 fL 79.4-9 4.8 Not Available [address], [address], 02/13/2022 15:02:19 02/14/20 22 02/13/2022 CBC MCH 30.0 pg 25.6-3 2.2 Not Available [address], [address], 02/13/2022 15:02:19 02/14/20 22 02/13/2022 CBC MCHC 32.9 g/dL 32.2-3 5.5 Not Available [address], [address], 02/13/2022 15:02:19 02/14/20 22 02/13/2022 CBC plt 238 K/ L 182-36 9 Not Available [address], [address], 02/13/2022 15:02:19 02/14/20 22 02/13/2022 CBC MPV 10.0 fL 9.4-12 .3 Not Available [address], [address], 02/13/2022 15:02:19 02/14/20 22 02/13/2022 CBC neut% 63.1 % 34.0-7 1.1 Not Available [address], [address], 02/13/2022 15:02:19 02/14/20 22 02/13/2022 CBC neut# 4.07 1.56-6 .13 Not Available [address], [address], 02/13/2022 15:02:19 02/14/20 22 02/13/2022 CBC lymph % 27.1 % 19.3-5 1.7 Not Available [address], [address], 02/13/2022 15:02:19 02/14/20 22 02/13/2022 CBC lymph # 1.75 K/ L 1.18-3 .74 Not Available [address], [address], 02/13/2022 15:02:19 02/14/20 22 02/13/2022 CBC mono% 6.8 % 4.7-12 .5 Not Available [address], [address], 02/13/2022 15:02:19 02/14/20 22 02/13/2022 CBC mono# 0.44 0.24-0 .56 Not Available [address], [address], 02/13/2022 15:02:19 02/14/20 22 02/13/2022 CBC eo% 1.6 % 0.7-5. 8 Not Available [address], [address], 02/13/2022 15:02:19 02/14/20 22 02/13/2022 CBC eo# 0.10 0.04-0 .36 Not Available [address], [address], 02/13/2022 15:02:19 02/14/20 22 02/13/2022 CBC baso% 1.2 % 0.1-1. 2 Not Available [address], [address], 02/13/2022 15:02:19 02/14/20 22 02/13/2022 CBC baso# 0.08 0.00-0 .08 Not Available [address], [address], 02/13/2022 15:02:19 02/14/20 22 02/13/2022 CBC RDW-CV 14.2 % 11.7-1 4.4 Not Available [address], [address], 02/13/2022 15:02:19 02/14/20 22 02/13/2022 CBC Ig% 0.200 % 0.000- 1.500 Ig % >0.5 Indic ates possi ble Left Shift Not Available [address], [address], 02/13/2022 15:02:19 02/14/20 22 02/13/2022 CBC Ig# 0.010 0.000- 0.093 Not Available [address], [address], 02/13/2022 15:02:19 02/14/20 22 02/13/2022 CBC NRBC% 0.0 % 0.0-0. 2 Not Available [address], [address], 02/13/2022 15:02:19 02/14/20 22 02/13/2022 CBC NRBC# 0.000 0.000- 0.012 Not Available [address], [address], 02/13/2022 15:02:19 02/14/2002/13/2022 FREE T4 free T4 1.02 NG/dL 0.75-1 .54 Not Available [address], [address], 02/13/2022 15:31:40 02/14/20 22 02/13/2022 RAJENDRA TIN ferritin 68 NG/mL 15-200 Not Available [address], [address], 02/13/2022 15:31:41 02/14/2002/13/2022 TSH TSH 1.82 uIU/m L 0.50-6 .00 The Ameri can Colle ge of Endoc rinol ogy and Ameri can Thyro id Assoc iatio n recom mend goal TSH value s betwe en 0.4-4 .0 mIU/m L. Not Available [address], [address], 02/13/2022 15:51:35 02/14/2002/14/2022 IRON PANEL iron 95 ug/dL 35-150 Not Available [address], [address], 02/14/2022 09:42:33 02/14/2002/14/2022 IRON PANEL T.I.B.C. 278 ug/dL 250-45 0 Not Available [address], [address], 02/14/2022 09:42:33 02/14/2002/14/2022 IRON PANEL % saturation 34.2 % Not Available [address], [address], 02/14/2022 09:42:33 02/14/20 22 02/16/2022 VITAM IN B12 vitamin B12 578 pg/mL 230-10 50 Not Available [facility] [address] [place], [address], 02/16/2022 14:19:33 02/14/20 22 02/16/2022 FOLAT E folate 14 NG/mL 3-16 Not Available [facility] [address] [place], [address], 02/16/2022 14:19:34 10/20/19 20 10/20/2019 XR, foot OBSERV ATION: CLINIC AL HISTOR Y: Chroni c left foot pain, worsen ing. Previo us Grijalva fractu re. TECHNI QUE: AP, obliqu e, and latera l views of the left foot obtain ed. COMPAR DON: None. FINDIN GS: There is no acute fractu re or disloc ation. There is cortic al irregu larity at the bases of the second and third metata rsals. The area is obscur ed by overla pping struct ures. There appear s to be some underl sue sclero tic change . The soft tissue s are unrema rkable . IMPRES MARIE: Probab le chroni c degene rative change at the bases of the second and third metata rsals. Electr onical ly signed Marcio childress Physic ashley: [facility] (Imaging) [address] , [place], [address], 10/21/2019 06:36:18 10/20/19 20 10/20/2019 XR, hip, unila teral OBSERV ATION: CLINIC AL HISTOR Y: Bilate ral hip pain. TECHNI QUE: Two views of each hip are obtain ed. COMPAR DON: None. FINDIN GS: RIGHT HIP: There is no fractu re, sublux ation, or disloc ation. There is preser vation of the hip joint space. LEFT HIP: There is no fractu re, sublux ation, or disloc ation. There is preser vation of the hip joint space. IMPRES MARIE: No acute bone abnorm ality. No signif icant degene rative diseas e. Electr onical ly signed Readkeri childress Physic ashley: [facility] (Imaging) [address] , [place], [address], 10/21/2019 06:38:03 12/11/19 20 12/10/2019 elect romyo gram + nerve condu ction study No observ ation record ed. JOANA [facility] [address] [place], [address], 01/06/2020 08:50:17 08/04/19 21 01/07/2019 xr lower extre mity outsi de (no inter preta tion) This study is for PACS storag e only and not for interp retati on. Final result KYLEE PATEL [facility] [address] [facility] [place], [address], 08/04/2020 11:01:22 10/12/19 21 09/28/2020 gurinder metry No observ ation record ed. JOANA Not Available 2020 07:59:31 12/28/19 21 12/27/2020 CT chest (high resol ution ) with contr ast Contra st enhanc ed exam. No compar don. FINDIN GS: Minor depend ent atelec tasis in both lower lung bang . No eviden ce of underl sue inters titial lung diseas e. Densel y calcif ied 6 mm anteri or right middle lobe and 3 mm lower lingul ar granul omata. No other/ worris ome pulmon maurice nodule s or masses . Border line cylind rical bronch iectas is in both medial lower lobes. No other bronch ial dilata tion, wall thicke surya or fillin g defect s. Linear bands of scarri ng in the tax credit leasing consultant ior lung bases bilate rally. No eviden ce of an infect ious infilt rate. No pleura l or perica rdial effusi on. Modera te kat ry artery calcif icatio n. Otherw ise the heart and great vessel s are unrema rkable . Esopha mitul is border line dilate d and mostly fluid filled which may indica te achala prakash. No focal wall thicke surya suspic ious for tumor. No signif icant adenop athy. No adrena l or thyroi d pathol ogy. No acute or worris ome bony abnorm alitie s. IMPRES MARIE: 1. No eviden ce of inters titial lung diseas e. 2. Border line lower lobe bronch iectas is and a few linear bands of scarri ng, but no acute pulmon maurice pathol ogy. 3. Fluid- filled , border line dilate d esopha mitul suspic ious for achala prakash which may place the patien t at risk for aspira tion (possi [place] accoun ting for lower lobe scarri ng). 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 KYLEE PATEL [facility] [address] [place], [address], 12/30/2020 17:22:22 01/03/20 21 12/27/2020 CT, chest , w/ contr ast No observ ation record ed. [facility] [address] [place], [address], 01/02/2021 14:39:39 02/17/20 22 02/14/2022 bone densi ty Dual-E nergy X-ray Absorp tiomet ry (DXA) scan perfor med on . This scan was perfor med using the Transfer Toar Prodig y Primo densit ometer at [employer] [place] [facility] [place] [id number] . Impres marie: Based on BMD, diagno sis is consis tent with osteop enia/l ow bone mass. Indica tion(s ): Caucas ashley, postme nopaus al Clinic al Histor y: histor y of osteop orosis , RA Techni michele Qualit y: The techni michele qualit y of the study was good and no region s of brysone st were remove d. Result s: Lumbar Spine The BMD measur ed in the L1-L4 region is 1.042 g/cm2. T-scor e = -1.2 Femora l Neck The BMD measur ed at the left femora l neck is 0.779 g/cm2. T-scor e = -1.9 Total Hip The BMD measur ed at the total left proxim al femur is 0.863 g/cm2. T-scor e = -1.1 Interv al Change : This examin ation is compar ed to the techni bernarda simila r prior study from 2018. In the interi m, there has been no signif icant change . At this facili ty, the least signif icant change in BMD with 95% confid ence is 0.0.05 0 g/cm2 at the L1-L4 spine, 0.034 g/cm2 at the left femora l neck, 0.034 g/cm2 at the right femora l neck and 0.005 g/cm2 at the total hip. . Fractu re Risk: The estima amarilis 10-yea r risk for a major osteop orotic fractu re is 15% and for a hip fractu re 3.2%. This fractu re risk estima te was calcul ated using FRAX versio n 4.0 and RA as additi onal clinic al risk factor for fractu re. Second maurice causes of bone loss should be evalua amarilis if clinic ally indica amarilis since the etiolo gy of low BMD cannot be determ ined by BMD measur ement alone. Treatm ent Recomm endati ons: Optimi ze vitami n D, calciu m, and weight -beari ng and muscle -stren gtheni ng exerci se. This patien t has osteop enia with fractu re risk above the thresh old for antire sorpti ve treatm ent. Treatm ent option s should be consid ered. Follow -up DXA: Consid er repeat ing this study in 1-2 years or as clinic ally indica amarilis. Read by: Chris zelaya MD, FACP, CCD Marcio childress Physic ashley: Nilouf aman lawson [facility] [address] , [place], [address], 02/19/2022 10:56:55 Result Notes Documentation Provider Name and Address Organization Details Recorded Time Xr, Foot : OBSERVATION: CLINICAL HISTORY: Chronic left foot pain, worsening. Previous Grijalva fracture. TECHNIQUE: AP, oblique, and lateral views of the left foot obtained. COMPARISON: None. FINDINGS: There is no acute fracture or dislocation. There is cortical irregularity at the bases of the second and third metatarsals. The area is obscured by overlapping structures. There appears to be some underlying sclerotic change. The soft tissues are unremarkable. IMPRESSION: Probable chronic degenerative change at the bases of the second and third metatarsals. Electronically signed Reading Physician: Kirill Patel MD [address] [place] [address], [address] [place] [address] 10/20/2019 17:23:14 Xr, Hip, Unilateral : OBSERVATION: CLINICAL HISTORY: Bilateral hip pain. TECHNIQUE: Two views of each hip are obtained. COMPARISON: None. FINDINGS: RIGHT HIP: There is no fracture, subluxation, or dislocation. There is preservation of the hip joint space. LEFT HIP: There is no fracture, subluxation, or dislocation. There is preservation of the hip joint space. IMPRESSION: No acute bone abnormality. No significant degenerative disease. Electronically signed Reading Physician: Kirill Patel MD [address] [place] [address], [phone] [place] [address] 10/20/2019 17:23:14 Problems Name Problem SNOMED Code Status Onset Date Resolution Date Notes Provider Name and Address Organization Details Recorded Time Pain of multiple joints 57985804 Active Cachorro Patel MD [address] [place] [address], [phone] 5 18:22:51 Neck pain 57379764 Active Cachorro Patel MD [address] [place] [address], [address] , [facility] 18:22:51 Excessive belching 018230634 Active Cachorro Patel MD [address] [place] [address], [address] , [facility] 06/02/201 5 18:22:51 Dyspnea 413795584 Active Cachorro Patel MD [address] [place] [address], [address] , [facility] 6 13:50:48 Disorder of bursa of shoulder region 43885147 Completed 04/01/2013 Not Available [facility] 3 02:04:09 Peripheral vertigo 23874312 Active Not Available [facility] 3 03:11:30 Enthesopat hy of hip region 74213021 Completed 04/01/2013 Not Available [facility] 3 02:03:09 Respirator y finding 660315647 Completed 04/01/2013 Not Available [facility] 3 02:04:14 Osteoporos is 51082234 Active Not Available [facility] 3 03:11:30 Osteoarthr itis of joint of hand 56856741 Active Not Available [facility] 3 03:11:30 Menopausal and postmenopa usal disorders 460075364 Active Not Available [facility] 3 03:11:30 Pain of hip region 56358716 Completed 200104/01/2013 Not Available [facility] 3 02:01:32 Arthropath y 566302736 Active 2001 Not Available [facility] 3 03:11:30 Dizziness 149950883 Completed 200304/01/2013 Not Available [facility] 3 02:02:08 Systemic sclerosis 54494161 Active 2005 Not Available [facility] 3 03:11:30 Dysphagia 81154079 Active 2005 Cachorro Patel MD [address] [place] [address], [address] , [facility] 6 13:50:48 Respirator y finding 099802940 Completed 200504/01/2013 Not Available [facility] 3 02:04:02 Chest pain 43676928 Completed 200504/01/2013 Not Available [facility] 3 02:01:46 Pain of joint 60911037 Active 2006 Not Available [facility] 3 03:11:30 Malaise and fatigue 920732403 Completed 200604/01/2013 Not Available [facility] 3 02:00:17 Gastroesop hageal reflux disease 040192613 Active 2006 Not Available [facility] 3 03:11:30 Organism isolated by microbial culture 658801829 Completed 200604/01/2013 Not Available [facility] 3 02:04:20 Inflammato ry polyarthro jodie 719220809 Active 2006 Cachorro Patel MD [address] [place] [address], [address] , [facility] 5 16:06:53 Anemia 191827710 Active 2006 Not Available [facility] 3 03:11:30 Primary fibromyalg ia syndrome 66931950 Active 2006 [facility] Available [facility] 3 03:11:30 Raynaud's disease 959039581 Active 2007 Cachorro Patel MD [address] [place] [address], [address] , [facility] 6 13:50:48 Disorder of shoulder 426891003 Active 2007 [facility] Available [facility] 3 03:11:30 Pain of multiple joints 15350944 Completed 200704/01/2013 Not Available [facility] 3 02:02:26 Disorder of connective tissue 927551192 Active 2007 Cachorro Patel MD [address] [place] [address], [address] , [facility] 6 13:50:48 Rheumatism 979093898 Active 2008 Not Available [facility] 3 03:11:30 Tendinitis 32184542 Active 2008 Not Available [facility] 3 03:11:30 Hammer toe 795167551 Active 2008 Not Available [facility] 3 03:11:30 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 Procedures Surgical History Date Name Laterality Status Provider Name and Address Organization Details Recorded Time 05/14/19 20 Knee (Left) Injection completed Cachorro Patel MD [address] [place] [address], [phone], [facility] 05/14/2019 10:52:43 08/06/19 12 Greater Trochanteric Bursa Steroid Injection completed Cachorro Patel MD [address] [place] [address], [phone], [facility] 08/06/2011 12:54:47 05/03/20 09 Greater Trochanteric Bursa Steroid Injection completed Cachorro Patel MD [address] [place] [address], [phone], [facility] 05/03/2009 14:58:51 02/05/20 09 Shoulder (Left) Injection completed Cachorro Patel MD [address] [place] [address], [phone], [facility] 02/04/2009 13:53:55 Imaging Results None recorded. Procedure Notes None recorded. Medical Equipment None Reported. Allergies Allergen ID Allergen Name Allergen Category Reaction Reaction Severity Criticality Documentation Date Start Date Code Code System Note Provider Name and Address Organization Details Recorded Time 91658 codeine medicatio n nausea vomiting Not available Not available Not available 09/24/2008 2670 RxNorm Not Available [facility] 1 06:05:41 53714 cyclobenz aprine medicatio n nausea vomiting Not available Not available Not available 02/18/2009 75732 RxNorm Not Available [facility] 1 06:05:20 65282 tramadol medicatio n nausea vomiting Not available Not available Not available 02/18/2009 14867 RxNorm Not Available [facility] 1 06:05:20 252048 cephalexi n medicatio n nausea severe Not available 10/25/2017 2231 [facility] 07:56[facility]23 594314 Skelaxin medicatio n nausea severe Not available 10/25/2017 01422 5 RxNorm Leeann Shore, RECYCLING ATTENDANT [facility] 8 07:57:02 Medications Name Sig Start Date Stop Date Status Note LastModified by Organization Details LastModified Time compounde d medicatio n Ketoprof er Gel 10% Use TID as directed 08/24 completed Not Available Not Available Not Available Protonix 40 mg tablet,de layed release 10/25 completed Not Available Not Available Not Available atorvasta tin 10 mg tablet Take 1 tablet every day by oral route. 11/22 completed Not Available Not Available Not Available fluocinol one 0.01 % topical cream APPLY A THIN LAYER TO THE AFFECTED AREA(S) BY TOPICAL ROUTE 2-4 TIMESDAI LY 11/22 completed 5% Not Available Not Available Not Available alendrona te 70 mg tablet TAKE 1 TABLET BY MOUTH WEEKLY 11/22 completed Not Available Not Available Not Available amlodipin e 2.5 mg tablet 09/24 completed 1 po qd for 1 wk, then 2 po qd Not Available Not Available Not Available meloxicam 7.5 mg tablet TAKE 1 TABLET BY MOUTH EVERY DAY 02/13 completed Pt stopped 05/2019 Not Available Not Available Not Available propoxyph niya N-acetami nophen 100 mg-650 mg tablet Take 1 tablet every 4 hours by oral route. 02/18 completed Not Available Not Available Not Available citalopra m 20 mg tablet Take 1 tablet every day by oral route. 11/22 completed Not Available Not Available Not Available omeprazol e 20 mg capsule,d elayed release Take 1 capsule by mouth twice daily 11/22 completed Taking once daily Not Available Not Available Not Available aspirin 81 mg tablet 08/24 completed Not Available Not Available Not Available gabapenti n 100 mg capsule TAKE 1 CAPSULE BY MOUTH TWICE DAILY 11/22 completed Not Available Not Available Not Available hydroxych loroquine 200 mg tablet TAKE 1 TABLET BY MOUTH DAILY 11/22 completed Not Available Not Available Not Available omeprazol e active qd Not Available Not Available Not Available Fish Oil 08/24 completed qd Not Available Not Available Not Available multivita min active qd Not Available Not Available Not Available Vitals Date Recorded Body height Body mass index (BMI) Body weight Provider Name and Address Organization Details Last Updated DateTime 06/14/2021 160.02 cm 26.6 kg/m2 03870.86 g Krista Zuritajeni [facility] 06/14/2021 10:06:00 Date Recorded Body height Body mass index (BMI) Body weight Provider Name and Address Organization Details Last Updated DateTime 08/02/2020 160.02 cm 26.6 kg/m2 23272.86 g Samantha Kimberly [facility] 08/02/2020 08:04:40 Date Recorded Body height Body mass index (BMI) Body weight Provider Name and Address Organization Details Last Updated DateTime 10/19/2019 160.02 cm 26.6 kg/m2 55643.86 [facility] 08:01:45 Date Recorded Body height Body temperature Provider N liliana and Address Organization Details Last Updated DateTime 02/07/2021 160.02 cm 97.7 [degF] Yamilethra Connell [facility] 02/07/2021 08:20:19 Date Recorded Body height Body mass index (BMI) Body weight Heart rate Systolic And Diastolic Provider Name and Address Organization Details Last Updated DateTime 02/13/2022 160.02 cm 26 kg/m2 59145 g 79 /min 116/72 mm[Hg] [facility] 02/13/2022 10:58:51 Social History Question Answer Notes LastModified by Organizat ion Details LastModified Time Tobacco Smoking Status Former Smoker 16 years ago Not Available [facility] 10/05/2010 02:07:53 What Is Your Level Of Caffeine Consumption? Moderate 2 Cup/day Information not available 09/24/2008 What Type Of Diet Are You Following? REGULAR Low Fat Information not available 09/24/2008 What Was The Date Of Your Most Recent Tobacco Screening? 10/20/2018 Information not available 12/03/2018 Sex: Unknown Functional Status Question Answer Note LastModified by Organization D etails LastModified Time What is your level of alcohol consumption? None [email or web address] Information not available 10/25/2017 Mental Status None recorded. Family History Relationship Description Onset Age of this Age Resolved Age Notes LastModified by Organization Details LastModified Time Mother Arthritis Not available 08/24/2014 13:31:16 Brother Arthritis Not availabl e 08/24/2014 13:31:16 Medical History Condition Response Osteoarthritis Y RHEUMATOLOGIC Y GERD Y CANCER Y Osteoporosis Y Gynecological HistoryNo gynecological history recorded. Obstetrics History GPAL:G 0 P 0 0 0 0 Immunizations Vaccine Type Date Status Note Provider Nam e and Address Organization Details Recorded Time influenza, unspecified formulation 9 completed Not Available [facility] 03/28/2011 05:22:13 Influenza, split virus, quadrivalent, preservative 7 completed JOSE Villanueva, [facility] 10/25/2017 07:58:28 COVID-19, mRNA, LNP-S, PF, 100 mcg/0.5mL dose or 50 mcg/0.25mL dose 1 completed JOSE Luis, [facility] 09/27/2020 14:58:43 COVID-19, mRNA, LNP-S, PF, 100 mcg/0.5mL dose or 50 mcg/0.25mL dose 1 completed JOSE Luis, [facility] 09/27/2020 15:01:15 Influenza, split virus, quadrivalent, preservative 1 completed JOSE Dexter, [facility] 06/14/2021 10:07:08 COVID-19, mRNA, LNP-S, PF, 100 mcg/0.5mL dose or 50 mcg/0.25mL dose 1 completed JOSE Dexter, [facility] 06/14/2021 10:07:28 Past Encounters Encounter ID Performer Location Encounter Start Date Encounter Closed Date Diagnosis/Indication Diagnosis SNOMED-CT Code Diagnosis ICD10 Code Diagnosis Note [id number] [facility] - [address] [address] 10/30/2001 15:21:21 06/02/2008 02:02:29 [id number] [facility] , [facility] [address] [place] [address] 10/30/2001 14:24:35 06/02/2008 02:02:29 [id number] [facility], [facility] [place] [address] 01/12/2004 15:39:14 01/14/2004 09:29:47 [id number] [facility], [place] [place] [address] 01/21/2004 15:01:11 01/24/2004 07:58:06 [id number] [facility], [facility] [place] [address] 01/25/2004 14:44:05 01/26/2004 07:27:42 [id number] [facility], [place] [place] [address] [id number] [facility], [place] [place] [address] 02/10/2004 14:13:45 02/12/2004 08:42:34 [id number] [facility], [place] [place] [address] 02/24/2004 14:26:52 02/25/2004 07:08:33 [id number] [facility], [place] [place] [address] 03/24/2004 14:46:15 03/27/2004 07:16:23 [id number] Cachorro Patel MD Rheumatol tye, [facility] [place] [address] 06/26/2005 15:41:01 06/27/2005 11:19:15 [id number] Cachorro Patel MD Rheumatol tye, [facility] [place] [address] 04/29/2006 14:52:02 04/30/2006 06:39:22 [id number] Cachorro Patel MD Rheumatol tye, [facility] [place] [address] 09/09/2006 15:36:37 09/10/2006 06:51:29 [id number] [facility] Vin [facility] [place] [address] 09/12/2006 14:18:09 09/12/2006 14:18:14 [id number] [facility] Vin [facility] [place] [address] 09/12/2006 00:00:00 06/02/2008 02:02:29 [id number] Cachorro Patel MD Rheumatol ogjoey, [address] [place] [address] 10/11/2006 14:17:26 10/14/2006 06:34:35 [id number] [facility] RAD[facility] [address] Radiology , [address] [place] [address] 11/01/2006 13:47:53 11/01/2006 16:00:30 [id number] Cachorro Patel MD Rheumatol [address] [place] [address] 11/14/2006 09:39:41 11/15/2006 16:26:18 [id number] [facility] - [address] [place] [address] 12/27/2006 16:07:52 12/27/2006 16:08:00 [id number] MD Francisco Reedol tye[address] [place] [address] 12/27/2006 15:31:41 12/28/2006 13:30:03 [id number] [facility] - [address] [place] [address] 01/07/2007 14:44:10 01/07/2007 14:44:18 [id number] Cachorro Patel MD Rheumatol tye, [address] [place] [address] 03/25/2007 09:15:03 06/02/2008 02:02:29 [id number] Cachorro Patel MD Rheumatol tye, [address] [place] [address] 05/16/2007 14:36:02 06/02/2008 02:02:29 [id number] Cachorro Patel MD Rheumatol tye, [address] [place] [address] 02/12/2008 10:51:29 06/02/2008 02:02:29 [id number] [facility] - [place] [place] [address] 02/12/2008 11:49:54 02/12/2008 11:50:05 [id number] [facility] - [place] [place] [address] 04/30/2008 12:31:20 04/30/2008 12:31:27 [id number] Cachorro Patel MD Rheumatol tye, [address] [place] [address] 05/03/2008 12:31:47 05/11/2008 08:08:00 [id number] Cachorro Patel MD Rheumatol tye, [address] [place] [address] 05/24/2008 15:32:41 06/02/2008 02:02:29 [id number] Brett Zaragoza DPM Podiatry, [address] [place] [address] 05/26/2008 13:42:02 06/02/2008 02:02:29 [id number] Brett Zaragoza DPM Podiatry, [address] [place] [address] 06/23/2008 11:25:08 06/24/2008 14:29:14 [id number] Cachorro Patel MD Rheumatol tye, [address] [place] [address] 09/24/2008 09:28:36 09/27/2008 10:36:58 [id number] [facility], [address] [place] [address] 09/27/2008 13:13:03 09/27/2008 14:27:15 [id number] [facility] RAD[facility] Techn[address] Radiology , [address] [place] [address] 12/13/2008 14:36:41 12/20/2008 12:00:29 [id number] Cachorro Patel MD Rheumatol ogy, [address] [place] [address] 12/27/2008 11:01:14 12/28/2008 09:33:25 [id number] Cachorro Patel MD Rheumatol ogjoey, [address] [place] [address] 02/04/2009 12:44:54 02/07/2009 12:40:01 [id number] Cachorro Patel MD Rheumatol ogy, [address] [place] [address] 02/18/2009 13:01:58 02/21/2009 10:30:44 [id number] Brett Zaragoza DPM Podiatry, [address] [place] [address] 07/21/2008 09:22:46 03/10/2009 02:00:52 [id number] Brett Zaragoza DPM Podiatry, [address] [place] [address] 08/18/2008 14:12:10 08/20/2008 08:32:35 [id number] Brett Zaragoza DPM Podiatry, [address] [place] [address] 11/10/2008 14:33:11 11/24/2008 14:00:33 [id number] Cachorro Patel MD Rheumatol tye, [address] [place] [address] 05/03/2009 12:35:20 05/04/2009 09:39:14 [id number] Cachorro Patel MD Rheumatol tye, [address] [place] [address] 08/18/2010 10:45:50 08/18/2010 15:40:08 [id number] [facility] BONE DENSITY [facility]olog[facility] Radiology , [address] [place] [address] 05/29/2011 10:52:33 05/29/2011 11:22:58 [id number] Cachorro Patel MD Rheumatol tye, [address] [place] [address] 06/01/2011 14:28:15 06/04/2011 09:20:07 [id number] Cachorro Patel MD Rheumatol ogy, [address] [place], [place] [address] 08/06/2011 10:52:29 08/07/2011 08:39:23 [id number] Cachorro Patel MD Rheumatol tye[address] [place], [place] [address] 05/22/2012 07:49:39 05/22/2012 08:26:02 [id number] Cachorro Patel MD Rheumatol tye, [address] [place] [address] 08/24/2014 12:58:04 08/25/2014 09:32:05 Disorder of connective tissue 238960967 Limited Scleroderm a: stable sx's except some increased joint pain lately. Features include Raynaud's, sclerodact yly, calcinosis , probable esophageal dysfunctio n. Anticentro mere antibody is high positive. Diagnostic ally, we will update labs including FATEMEH complement levels looking for some form of lupus overlap with her increased joint symptoms. Also check rheumatoid factor. She is already on hydroxychl oroquine. Discussed options for treating inflammato ry joint symptoms. We can try putting her on a steady dose of an anti-infla mmatory. We could put her on a low dose of prednisone . We can think about putting her on methotrexa te. I prefer to try adding the anti-infla mmatory first. Try meloxicam 7.5 mg daily instead of her occasional ibuprofen. If she does not see improvemen t, she is to call me and I would have her increase to the 15 mg daily dose. Continue hydroxychl oroquine. I will have her come back for reevaluati on in 6-8 weeks, sooner if needed. 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 says she is getting exams every 6 mo. though I do not see a note. [id number] Cachorro Patel MD Rheumatol tye, [address] [place] [address] 10/12/2014 14:07:24 10/13/2014 08:48:24 Disorder of connective tissue 991975479 Limited Scleroderm a: stable sx's except some increased joint pain lately. Features include Raynaud's, sclerodact yly, calcinosis , probable esophageal dysfunctio n. Anticentro mere antibody is high positive. Recent labs OK. Repeat Echo fine. Continue hydroxychl oroquine. I will have her come back for reevaluati on in 6 mo, sooner if needed. Pain of mu ltiple joints 73981491 Arthralgia s, but no sign of significan t inflammato ry arthritis. Improved with low dose meloxicam. Tolerating OK with concurrent omeprazole . Continue Neck pain 16434450 Previ ously seen at [facility] for this. DDD. Suggest she be re-evaluat ed. In the past local injection quite helpful. Excessive belching 650488715 Excessive belching. Perhaps related to esophageal dysmotilit y with her limited scleroderm a ??? Suggested GI evaluation . [id number] Cachorro Patel MD Rheumatol joey, [address] [place] [address] 04/18/2015 08:35:14 04/18/2015 09:04:14 Disorder of connective tissue 108214772 M35.9 Limited Scleroderm a: stable sx's . Features include Raynaud's, sclerodact yly, calcinosis , esophageal dysmotilit y. . Anticentro mere antibody is high positive. Repeat Echo fine. Continue hydroxychl oroquine. Try to stop meloxicam to see if actually needed. May take it on PRN basis. I will have her come back for reevaluati on in 6 mo, sooner if needed. [id number] Cachorro Patel MD Rheumatol tye, [address] [address] 10/17/2015 07:47:53 10/25/2015 06:21:31 Disorder of connective tissue 481542294 M35.9 Limited Scleroderm a: stable sx's . Features include Raynaud's, sclerodact yly, calcinosis , esophageal dysmotilit y. . Anticentro mere antibody is high positive. Consider repeat Echo next visit Continue hydroxychl oroquine. Try again to stop meloxicam to see if actually needed. May take it on PRN basis. I will have her come back for reevaluati on in 6 mo, sooner if needed. Dysphagia 04244542 R13.1 0 A new problem has been some dysphagia. She is felt to have achalasia, but I wonder if she rather has some esophageal dysmotilit y related to scleroderm a. Raynaud's disease 313045 006 I73.00 No worse than at prior visits. No finger ulcers over winter. Dyspnea 359576572 A late complicati on of limited scleroderm a can be pulmonary hypertensi on. I think it is unlikely in this case, but she is complainin g of some exertional dyspnea. She had a normal echocardio gram 2 years ago. We will update this. If her exertional dyspnea seems to advance at all, I would recommend formal pulmonary function testing. [id number] Cachorro Patel MD Rheumatol tye, [address] [place] [address] 04/19/2016 08:53:00 04/20/2016 07:30:34 Disorder of connective tissue [id number] M35.9 Limited Scleroderm a: . Features include Raynaud's, sclerodact yly, calcinosis , esophageal dysmotilit y. . 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 I am a little worried about increasing exertional dyspnea. Pulmonary HTN is known complicati on, but usually seen in patients with extensive telangecta prakash. Pulmonary referral. Continue hydroxychl oroquine. Try again to stop meloxicam to see if actually needed. May take it on PRN basis. I will have her come back for reevaluati on in 4 mo, sooner if needed. Dyspnea on exertion 6084 5006 R06.09 Describes definite increase in symptoms over past 6 months. She is at some risk for pulmonary hypertensi on. Normal Echo 18 mo ago, but that may not be reliable. Remote smoking hx. I have suggested formal pulmonary consultati on. Refer to Nancy Wen/Jason alvarado. Gastroesop hageal reflux disease [id number] K21.9 Documented dysmotilit y related to limited scleroderm a. Sxs mostly controlled . [id number] Cachorro Patel MD Rheumatol tye, [address] [place] [address] 10/25/2017 07:47:16 10/25/2017 09:31:59 Disorder of connective tissue [id number] M35.9 Limited Scleroderm a: . Features include Raynaud's, sclerodact yly, calcinosis , esophageal dysmotilit y. . 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 Continue hydroxychl oroquine. Try again to stop meloxicam to see if actually needed. May take it on PRN basis. I will have her come back for reevaluati on in 5 mo, sooner if needed. Anemia [id number] D64.9 Reviewed labs. Baseline Hct ~ 35. Lower in May. Should repeat with iron studies. Probably not low enough to account for KAT. Raynaud's phenomenon [id number] [id number] I73.00 Quite symptomati c in the winter. Tried on amlodipine in 2008. Not recorded why she stopped it.Conside r cautious trial again this Fall. Long-term drug therapy [id number] Z79.899 On Plaquenil. says she is getting exams every 6 mo. though I do not see a note. [id number] Cachorro Patel MD Rheumatol tye, [address] [place] [address] 10/20/2018 09:59:59 10/20/2018 10:33:46 Disorder of connective tissue 893045777 M35.9 Limited Scleroderm a: . Features include Raynaud's, sclerodact yly, calcinosis , esophageal dysmotilit y. . 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 Continue hydroxychl oroquine. Try again to stop meloxicam to see if actually needed. May take it on PRN basis. I will have her come back for reevaluati on in 9 mo, sooner if needed. Osteopenia [id number] M85 .80 Hx osteopenia t= -1.6 in 2011. Schedule repeat scan. Dyspnea on exertion 6084 5006 R06.09 Stable sxs over past year. Prior extensive pulmonary work up: no evidence of pulmonary HTN or ILD. 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 On prilosec BID, followed by Dr Martin. No change sxs. [id number] Cachorro Patel MD Rheumatol tye, [address] [place] [address] 05/14/2019 07:53:13 05/14/2019 08:32:17 Disorder of connective tissue 724372287 M35.9 Limited Scleroderm a: . Features include Raynaud's, sclerodact yly, calcinosis , esophageal dysmotilit y. . 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 Continue hydroxychl oroquine. Try again to stop meloxicam to see if actually needed. May take it on PRN basis. I will have her come back for reevaluati on in 6 mo for limited scleroderm a, sooner if needed. Osteoarthr itis of knee [id number] M17.12 Findings of OA knee. Fairly symptomati c.Discusse d pros cons injection, PT.Willing to try steroid injection. If gets > 2 mo response, can repeat. If not could consider gel series. Osteoarthr itis of shoulder region 46742369 M19.019 L shoulder replacemen t Dec 2018.Sympt omatic on R, but not sure she wants to go through with another surgery. 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 Features include Raynaud's, sclerodact yly, calcinosis , esophageal dysmotilit y. . 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 Prior investigat ion for mild stable KAT (Dr Wen) showed no evidence of pulmonary HTN.When COVID restrictio ns lifted, consider repeat PFTs and echocardio gram. Continue hydroxychl oroquine. May take IBU on PRN basis. I will have her come back for reevaluati on in 6 mo for limited scleroderm a, sooner if needed. Pain of hip region 38929 002 M25.551 M25.552 Bilat thigh pain worse with hip movement.I am unable to examine her today (COVID).By descriptio n, progressiv e sxs over past 6 mo.Suspect OA hips. If confirmed on x ray, Ortho referral and PT referral. Set up RV 6 wks so as not to lose track of her. Pain in left foot [id number] 5724 66272 M79.672 Prior Grijalva fx, but ongoing pain many months. ? stress fracture?S ome neuropathi c component to pain. 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 Features include Raynaud's, sclerodact yly, calcinosis , esophageal dysmotilit y. . 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 Prior (2014) investigat ion for mild stable KAT (Dr Wen) showed no evidence of pulmonary HTN. Will repeat PFTs and echocardio gram. Continue hydroxychl oroquine. I will have her come back for reevaluati on in 6 mo for limited scleroderm a, sooner if needed. Pain in left foot [id number] 5459 24007 M79.672 Prior Grijalva fx, but ongoing pain many months. ? stress fracture? Some neuropathi c component to pain. Had normal NCS at [facility]. Dr Dias thought arthritis , but only mild changes on x ray.. Gabapentin helps some, but has been taking only very low dose. OK to take as much as [address] Phan for an opinion. Maybe trial injection? 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 Features include Raynaud's, sclerodact yly, calcinosis , esophageal dysmotilit y. . 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 Prior (2014) investigat ion for mild stable KAT (Dr Wen) showed no evidence of pulmonary HTN.Awaiti ng repeat echo.HRCT lungs: no ILD.Get PFTs report. Continue hydroxychl oroquine.C OVID booster discussed. Pain of mu ltiple joints 16019656 M25.50 Patient reports aching and stiffness in shoulders and legs as well as hands.Will check labs and reassess. 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 Features include Raynaud's, sclerodact yly, calcinosis , esophageal dysmotilit y. . 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 Doing well.On PPI.Follow ing with pulmonary (UTD with testing).L abs reviewed.C ontinue hydroxychl oroquine.P atient got the COVID booster and flu shot. Check labs before next visit. RTC in 8 months or sooner if needed. Long-term drug therapy [id number] Z79.899 On plaquenil. Patient to continue to follow with ophthalmol ogy. Dyspnea on exertion 6084 5006 R06.09 Following with pulmonary. HRCT lungs: no ILD.Get PFTs report.Ech o wnl. 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 Features include Raynaud's, sclerodact yly, calcinosis , esophageal dysmotilit y. . 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 Doing well.On PPI.Follow ing with pulmonary. Labs reviewed.C ontinue hydroxychl oroquine.P atient to get the COVID booster and flu shot. Check 2D echo. RTC in 6 months or sooner if needed. Long-term drug therapy [id number] Z79.899 On plaquenil. Patient to continue to follow with ophthalmol ogy. Dyspnea on exertion 6084 5006 R06.09 Following with pulmonary. Get last visit. HRCT lungs: no ILD.Previo us Echo wnl. Trace MR.PFTs mildly reduced DLCO Normocytic anemia 065004 002 D64.9 Check labs. Bone densi ty below reference range 205511913 R93.7 Repeat bone density. Health Concerns Section Related Observation LastModified by Organization Detai ls LastModified Time None Recorded Concern Status LastModified by Organization Details LastModified Time None Recorded Advance Directives Directive None Recorded Payers Insurance Date Sequence Insurance Name Policy Number Policy Fabian Covered Member ID Fabian Member ID Guarantor Name 06/08/2024 1 [place]ARE [place]: [facility] [employer] Magali Weir [id number] Magali Weir 06/08/2024 2 [place] Magali Weir [id number] Magali Weir 04/01/2006 1 [place] [id number] Wilton Weir [id number] Magali Weir 05/16/2007 2 [facility] [id number] Wilton Weir [id number] Magali Weir 06/08/2024 1 [place] [id number] Magali Weir [id number] Magali Weir 05/16/2007 1 *SELF PAY* Chey Weir 06/08/2024 1 [place] [id number] Magali Weir [id number] Magali Weir 01/12/2004 1 [facility] HE[facility] PLAN (HMO) [place] Weir [id number] Magali Weir 04/02/2005 1 [facility] [place] [id number] Magali Weir 05/25/2011 1 [facility] [id number] Wilton Lindyi [id number] Magali Weir 06/08/2024 1 MEDICARE B-[place]: [facility] Magali Weir [id number] Magali Weir Notes Date Note Type Note Provider Name and Address Organization Details Recorded Time 10/19/2019 text/html ROS as noted in the HPI Patient agreed to this visit via non-secure telehealth platform due to the COVID -19 pandemic. The nature of the non-secure technology was discussed and the patient agreed to proceed. Patient understands this is a scheduled visit and the usual procedures with regard to billing and confidentiality apply. Patient was notified that the provider location is [facility] [place] Patient location: home During the visit the patient s medical history and medical record were reviewed. Follow up for CREST, but today's main complains are of bilat thigh pains and L foot pain. She did mention sxs at last visit 5 mo ago, but sxs have progressed. Thigh pain bad when first getting out of bed or out of chair. Takes a few moments to stand straight. Worse pain with walking and particularly stairs. Feels weak. No specific groin pain. Feels different from know arthritic pain at knee. No LBP. Some nocturnal pain lately.When standing, pain felt in thigh with attempted hip flexion or hip abduction. L foot pain has been for many months. There was Yaniv's fracture about a year ago. This feels different. Worse as day goes on. Some swelling dorsum foot by her description. Today, ongoing pain L knee. No locking or buckling. Stairs, extended walking painful. Known DJD in remote past on x ray. 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 Also osteoarthritis. She has high titer centromere antibody, calcinosis, sclerodactyly and Raynaud's, esoph dysmotility. A couple of yrs ago had increased joint symptoms. Considerable improvement with 7.5/d of meloxicam. Remains on Plaquenil. GI investigations confirmed esoph dysmotility. On omeprazole. Stable symtpms.Exertional dyspnea investigated 3-[address] Wen. No evid Pulm HTN. CT neg for interstitial dz. Still c/o mild KAT, but sxs have been stable. No significant problem with 1 flight of stairs. Since last visit, had R shoulder replacement (Dec 2018), still working with PT. Incidental finding of R renal mass: partial nephrectomy for renal CA in Feb 2015. Hx osteopenia t= -1.6 in 2011. No change in BMD on scan 03/2019.Does not take supplement calcium or Vit D. Cachorro Patel MD [address] [place] [address], [phone], [facility] 10/19/2019 10:13:50 08/02/2020 text/html ROS as noted in the HPI Patient agreed to this visit via non-secure telehealth platform due to the COVID -19 pandemic. The nature of the non-secure technology was discussed and the patient agreed to proceed. Patient understands this is a scheduled visit and the usual procedures with regard to billing and confidentiality apply. Patient was notified that the provider location is home Patient location: home During the visit the patient s medical history and medical record were reviewed. Follow up for CREST, but today's main complains are of bilat thigh pains and L foot pain. Thigh pain bad when first getting out of bed or out of chair. Takes a few moments to stand straight. Worse pain with walking and particularly stairs. Feels weak. No specific groin pain. Feels different from know arthritic pain at knee. No LBP. Some nocturnal pain lately. Hip x rays normal (10/20/19). Seen by PSS. L foot pain has been for many months. There was Yaniv's fracture more than a year ago. This feels different. Worse as day goes on. Some swelling dorsum foot by her description. 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 A couple of yrs ago had increased joint symptoms. Considerable improvement with 7.5/d of meloxicam. Remains on Plaquenil. GI investigations confirmed esoph dysmotility. On omeprazole. Stable symtpms.Exertional dyspnea investigated 3-[address] Wen. No evid Pulm HTN. CT neg for interstitial dz. Still c/o KAT, but sxs have been stable. 1 flight KAT, but activity limited by thigh pain. Also osteoarthritis. R shoulder replacement (Dec 2018) Incidental finding of R renal mass: partial nephrectomy for renal CA in Feb 2015. Hx osteopenia t= -1.6 in 2011. No change in BMD on scan 03/2019.Does not take supplement calcium or Vit D. Cachorro Paetl MD [address] [place] [address], [phone], [facility] 08/02/2020 10:14:37 02/07/2021 text/html ROS as noted in the HPI Patient is 70 y old female following-up on incomplete CREST.Patient used to follow with Dr. Patel. Patient states that her legs are bothering her. They ache, worse at bedtime and in the morning. Morning stiffness about 10 minutes. She also has achiness and stiffness in her shoulders. She cannot make a fist with her hands in the morning.Patient is plaquenil and gabapentin. Patient is tolerating the medication, no side effects reported. CT chest 12/31: no evidence of ILD. As per previous office visit with Dr. Patel:Follow up for CREST, but today's main complains are of bilat thigh pains and L foot pain. Thigh pain bad when first getting out of bed or out of chair. Takes a few moments to stand straight. Worse pain with walking and particularly stairs. Feels weak. No specific groin pain. Feels different from know arthritic pain at knee. No LBP. Some nocturnal pain lately. Hip x rays normal (10/20/19). Seen by PSS. L foot pain has been for many months. There was Yaniv's fracture more than a year ago. This feels different. Worse as day goes on. Some swelling dorsum foot by her description. 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 A couple of yrs ago had increased joint symptoms. Considerable improvement with 7.5/d of meloxicam. Remains on Plaquenil. GI investigations confirmed esoph dysmotility. On omeprazole. Stable symtpms.Exertional dyspnea investigated 3-[address] Wen. No evid Pulm HTN. CT neg for interstitial dz. Still c/o KAT, but sxs have been stable. 1 flight KAT, but activity limited by thigh pain. Also osteoarthritis. R shoulder replacement (Dec 2018) Incidental finding of R renal mass: partial nephrectomy for renal CA in Feb 2015. Hx osteopenia t= -1.6 in 2011. No change in BMD on scan 03/2019.Does not take supplement calcium or Vit D. Harry Huff MD [address] [place] [address], [phone], [facility] 02/07/2021 09:02:35 06/14/2021 text/html ROS as noted in the HPI This is a virtual phone visit. Patient agreed to this visit via phone or secure telehealth platform due to the COVID -19 pandemic. Patient understands this is a scheduled visit and the usual procedures with regard to billing and confidentiality apply. Patient was notified that the provider location is home Patient location: home During the visit the patient s medical history and medical record were reviewed. Patient is 70 y old female following-up on incomplete CREST. Patient states that she is doing well. She gets aches and pain in her legs.They ache, worse at bedtime and in the morning. Morning stiffness can last for a while.Patient is plaquenil and gabapentin. Patient is tolerating the medication, no side effects reported.Patient is following [facility].Patient having some dyspnea.Patient has an appointment with pulmonary in August. CT chest 12/31: no evidence of ILD. 2 D echo:Normal LV size and function EF 62%.Normal RV size and function.Normal diastolic function for age.Trace mitral regurgitation.Normal PA pressure estimation. As per previous office visit with Dr. Patel:Follow up for CREST, but today's main complains are of bilat thigh pains and L foot pain. Thigh pain bad when first getting out of bed or out of chair. Takes a few moments to stand straight. Worse pain with walking and particularly stairs. Feels weak. No specific groin pain. Feels different from know arthritic pain at knee. No LBP. Some nocturnal pain lately. Hip x rays normal (10/20/19). Seen by PSS. L foot pain has been for many months. There was Yaniv's fracture more than a year ago. This feels different. Worse as day goes on. Some swelling dorsum foot by her description. 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 A couple of yrs ago had increased joint symptoms. Considerable improvement with 7.5/d of meloxicam. Remains on Plaquenil. GI investigations confirmed esoph dysmotility. On omeprazole. Stable symtpms.Exertional dyspnea investigated 3-[address] Wen. No evid Pulm HTN. CT neg for interstitial dz. Still c/o KAT, but sxs have been stable. 1 flight KAT, but activity limited by thigh pain. Also osteoarthritis. R shoulder replacement (Dec 2018) Incidental finding of R renal mass: partial nephrectomy for renal CA in Feb 2015. Hx osteopenia t= -1.6 in 2011. No change in BMD on scan 03/2019.Does not take supplement calcium or Vit D. Harry Huff MD [address] [place] [address], [phone], [facility] 06/14/2021 10:37:00 02/13/2022 text/html ROS as noted in the HPI Patient is 71 y old female following-up on incomplete CREST. She has a history of incomplete CREST: high titer centromere antibody, calcinosis, sclerodactyly and Raynaud's, esophageal dysmotility. Patient states that she is doing well. She gets aches every now and then but it is manageable. Patient is plaquenil and gabapentin. Patient is tolerating the medication, no side effects reported.Patient is following with ophthalmology.Patient having some dyspnea.Patient has an appointment with pulmonary next month. CT chest 12/31: no evidence of ILD. 2 D echo:Normal LV size and function EF 62%.Normal RV size and function.Normal diastolic function for age.Trace mitral regurgitation.Normal PA pressure estimation. R shoulder replacement (Dec 2018) Incidental finding of R renal mass: partial nephrectomy for renal CA in Feb 2015. Harry Huff MD [address] [place] [address], [phone], [facility] 02/13/2022 11:35:52 OBGyn Episode No OBEpisode recorded.
[2024-12-04 12:32] VITALS: BP 122/70; PULSE 75; O2SAT 98; BMI 27.9
--- NOTE | 2024-12-04 12:32 | A.OFFVIS_ITS ---
Vital Signs 12/04/24 12:32 Height 5 ft 2 in Weight 152 lb 12.485 oz BMI 27.9 BP 122/70 Blood Pressure Location Lt brachial Position Sitting Pulse 75 Pulse Source Pulse Oximeter Pulse Oximetry (%) 98 Oxygen Delivery Method Room Air Intake Visit Reasons: [facility] Intake Note: Patient last seen by Doctor Jacinto Crowe on 02/10/24. Presents today for LSS[facility] follow up. Allergies cephalexin Adverse Reaction (Unknown, Verified 12/04/24 12:34) Nausea codeine Adverse Reaction (Unknown, Verified 12/04/24 12:34) Nausea cyclobenzaprine (From Flexeril) Adverse Reaction (Unknown, Verified 12/04/24 12:34) Nausea metaxalone Adverse Reaction (Unknown, Verified 12/04/24 12:34) Nausea tramadol Adverse Reaction (Unknown, Verified 12/04/24 12:34) Nausea Medication List - Last Reconciled 12/04/24 by Abril Rhodes MD atorvastatin 10 mg PO DAILY cholecalciferol (vitamin D3) 25 mcg PO DAILY diclofenac sodium 1% 4 grams topical QID escitalopram oxalate 10 mg PO DAILY fluorouracil 5% 2 appl topical BID gabapentin 300 mg PO DAILY omeprazole 20 mg PO DAILY Saccharomyces boulardii (Daily Probiotic (S. boulardii)) 250 mg PO BID HPI Comments Details: Patient is a 74-year-old female with hyperlipidemia, GERD, MGUS, osteopenia, polyarticular osteoarthritis and limited cutaneous sclerosis here today for follow up Interval History: Patient last seen 02/10/[address] Crowe - c/o left knee pain - Noticed some calcinosis deposits on her right thumb Since then - had MRI done which showed severe tricompartment oa and meniscal tears. - saw Orthopedics 04/27/24. She received a knee injection but the overall decision was that the meniscal surgery would not be beneficial for the patient. - also complained of left hip pain which she received a steroid injection under fluoroscopic guidance 08/11/24 Today - doing well overall - Unsure of last ECHO - Has some SOB and follows with pulm, no cause found - has calcium deposits in the left thumb which have become painful - Complaining of knee and hip pain - The hip pain improved after injection but she has a mechanical fall and subsequently return of pain Rheumatologic History: Ltd cutaneous sclerosis ++ centromere antibody (Raynaud's, arthralgias, calcinosis, GERD) onset around 2005 HCQ since the beginning. DC 05/2023 after having ruptured sac in the back of her left eye Initial history: This is a 72-year-old female with a past medical history scleroderma presents as a new patient. 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 Patient stated that she was diagnosed with scleroderma around 15-20 years ago. When she had Raynaud's, and some skin changes. She has been on hydroxychloroquine 1 tab daily since her diagnosis. She states she has history of GERD, on omeprazole daily and she had sphincter dilation procedure a few times by GI. She also states that her previous naval gunfire liaison officer Dr. Patel would order an echo and PFTs every 1-2 years. She follows up with a solar/renewable energy sales Dr. Zimmer. She stated that she was not started on any specific therapy by Pulmonary. Patient states that she is doing well overall. States that over the last year she has been getting progressively more short of breath. She gets short of breath with going up the stairs. After a dozen steps she has to slow down and catch her breath. She has a cough that is generally worse in the morning. Denies dysphagia. With regards to her Raynaud's she states that she has had digital tip ulcers years ago but no recent digital tip ulcers. He states that her Raynaud's is generally well controlled except when she goes grocery shopping. She has to use heated gloves. She states that she has generalized stiffness of her neck, shoulders and knees. The left knee is worse than the right. She the knee pain is worse with going up and down the stairs and worse with walking. She states that she walks 2-3 miles on the treadmill and she has knee pain towards the end. States that she was prescribed diclofenac gel for her neck arthritis and it did not seem to help. Current Rheumatology Medication(s): [facility] Medical History Porokeratosis Urinary frequency Insomnia Nontraumatic tear of rotator cuff Lumbar spondylitis Hyperlipidemia Facial nerve disease Esophageal reflux KAT (dyspnea on exertion) Depression Surgical History H/O shoulder replacement H/O kidney removal Family History (Reviewed 04/27/24 @ 08:51 by Kristin Garcia [facility]) Brother Cutaneous lupus erythematosus Father Prostate cancer Other Autoimmune disease Family history of rheumatoid arthritis Family history of systemic lupus erythematosus Family history of thyroid disease Social History Household Members: Spouse Alcohol intake: current Alcohol intake frequency: holidays/special occasions only Alcohol type: beer Patient Tobacco Use Status: Never used Tobacco service: No Current occupational status: retired 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 Review of Systems Const Details: Review of Systems Constitutional: Denies fever, chills, weight loss ENT: Denies vision changes, eye pain or eye redness, dental caries, dry mouth GI: Denies nausea, vomiting, diarrhea, abdominal pain, change in BM Pulm: Denies KAT, hemoptysis, wheezing Cards: Denies chest pain, palpitations Skin: Denies rash, nail changes, photosensitivity, [employer]PARATUS ENGINEERING TECHNOLOGIST: Denies headaches, weakness, paresthesias, recurrent falls MSK: as per HPI All other systems reviewed and are unremarkable except noted above Physical Exam Exam Exam: Vital signs reviewed Physical Examination CONSTITUITIONAL Patient alert and cooperative. Well appearing and in no apparent painful distress MSK Hands * Right Hand: Able to make a fist. No swelling or tenderness to palpation of these joints. * Left Hand: Able to make a fist. No swelling or tenderness to palpation of these joints. * Prominent Herbedens nodes noted bilaterally Wrists * Right Wrist: Full ROM. 70 degrees of wrist flexion, 80 degrees of wrist extension. No swelling or TTP * Left Wrist: Full ROM. 70 degrees of wrist flexion, 80 degrees of wrist extension. No swelling or TTP Elbows * Right Elbow: Full ROM. No swelling or TTP. No TTP of the medial and lateral epicondyles * Left Elbow: Full ROM. No swelling or TTP. No TTP of the medial and lateral epicondyles Shoulders * Decreased ROM bilaterally Knees * Right knee: Full ROM. No swelling noted. No TTP of the knee joint lie or pes anserine bursa * Left knee: Full ROM. No swelling noted. No TTP of the knee joint lie or pes anserine bursa. Ankles * Right ankle: Good ankle dorsiflexion and plantar flexion. No swelling. No TTP of the ankle joint * Left ankle: Good ankle dorsiflexion and plantar flexion. No swelling. No TTP of the ankle joint Feet * Right foot: Negative squeeze test * Left foot: Negative squeeze test Tender points? * No tenderness to palpation of the bilateral trapezius, supraspinatus, anterior costochondral junctions, bilateral suboccipital muscle insertions SKIN Abnormal nailfold capillaries Calcinosis deposit to pulp of right thumb Vital Signs: Last Vital Signs Pulse 75 12/04/24 12:32 BP 122/70 12/04/24 12:32 Pulse Ox 98 12/04/24 12:32 Oxygen Delivery Method Room Air 12/04/24 12:32 BMI result Body Mass Index 27.9 Results Reviewed Results Reviewed: Laboratory Tests 08/11/24 09:42 WBC 6.0 RBC 3.56 L Hgb 10.8 L Hct 32.4 L Plt Count 254 D Sodium 139 Potassium 4.6 Chloride 107 Carbon Dioxide 26 BUN 23 H Creatinine 0.89 AST 26 ALT 16 Alkaline Phosphatase 56 Laboratory Tests 08/09/22 11:20 Centromere B Antibody 125 H Centromere Protein A Ab 142 H XR Bilateral Knees 04/2024 FINDINGS: Mild joint space narrowing of the medial compartment of the right knee. Mild joint space narrowing of the lateral compartment of the left knee. Mild left patellofemoral degenerative changes. The soft tissues are unremarkable. IMPRESSION: Mild degenerative changes of the bilateral knees. MR Hussein knee 03/2024 Impression: 1. Tricompartmental degenerative changes notably full-thickness chondral loss involving the majority of the lateral tibiofemoral compartment with mild associated edema in the lateral tibial plateau. 2. Complex degenerative tearing posterior 2/3 of the lateral meniscus which is diminutive in size. Near full-thickness radial tear of the lateral meniscus posterior horn Assessment & Plan Assessment & Plan (1) Scleroderma: Comment: ++ centromere antibody (Raynaud's, arthralgias, calcinosis, GERD) onset around 2005 HCQ since the beginning. DC 05/2023 after having ruptured sac in the back of her left eye Code(s): M34.9 - Systemic sclerosis, unspecified Category: Medical Plan: #Ltd cutaneous sclerosis Patient is a 74-year-old female with limited cutaneous sclerosis significantly follow up. Plan - Raynaud's Phenomenon: continued conservation measures - Calcinosis: Hand surgery referral - PAH surveillance: ECHO every 2 years, next due 2026 - RTC 6 months (2) Osteopenia: Code(s): M85.80 - Other specified disorders of bone density and structure, unspecified site Category: Medical Qualifiers: Osteopenia location: multiple sites Qualified Code(s): M85.89 - Other specified disorders of bone density and structure, multiple sites Plan: #Osteopenia Osteopenia with low FRAX Last DEXA 2021, will repeat (3) Polyarticular osteoarthritis: Code(s): M15.9 - Polyosteoarthritis, unspecified Plan: #Polyarticular OA Stable Follows with ortho Plan I spent 25 minutes reviewing the record and labs, taking a history, examining the patient, discussing the treatment plan, ordering diagnostic work up and documenting in the medical record Orders: Orders XR DEXA axial skeleton Today M81.0 - Age-related osteoporosis without current pathological fracture Referrals Hand Surgery Referral E83.59 - Other disorders of calcium metabolism Coding Level of Care Code Est Pt Level 3 (53617) Complex EM visit Add On G2211 Diagnoses Scleroderma M34.9 Osteopenia of multiple sites M85.89 Osteopenia location: multiple sites Polyarticular osteoarthritis M15.9
== END 2024-12-04 13:22 | disposition home or self-care (01) ==
LOC: HO.RHE 12:03
PROVIDERS: PCP Family Medicine; Visit Provider Student in an Organized Health Care Education/Training Program
DX: M34.9 Systemic sclerosis, unspecified (principal); M85.89 Other specified disorders of bone density and structure, multiple sites; M15.9 Polyosteoarthritis, unspecified
CPT/HCPCS: 99213; G2211

== ENCOUNTER → 2024-12-04 12:03 | Outpatient (BNVA) | payer MEDICARE, MEDICAID, SELFPAY | PROVIDERS: PCP Family Medicine; Visit Provider Student in an Organized Health Care Education/Training Program | DX: M85.89 Other specified disorders of bone density and structure, multiple sites (principal); M34.9 Systemic sclerosis, unspecified; M15.9 Polyosteoarthritis, unspecified | CPT/HCPCS: 99212 ==